=== PATIENT | female | born 1935 | race African-American/Black ===

== ENCOUNTER 2020-05-20 09:51 | Inpatient (IN) ==
[2020-05-20] MEDS ORDERED: VITAMIN A PO SCH (10:30)
[2020-05-20] MEDS ORDERED: PERCOCET TAB 5/325 MG PO PRN (10:53)
[2020-05-20] MEDS ORDERED: TYLENOL 325 MG TAB PO PRN (10:53)
[2020-05-20] MEDS ORDERED: PATIENT'S HOME MEDICATION (Ferrous Fumarate [Ferrocite] 324 MG) PO SCH (11:00)
[2020-05-20] MEDS ORDERED: PATIENT'S HOME MEDICATION (Sitagliptin-Metformin [Janumet] 1 TAB) PO SCH (11:00)
[2020-05-20] MEDS ORDERED: VITAMIN B-12 PO SCH (11:00)
[2020-05-20] MEDS ORDERED: AMINO ACIDS PROTEIN HYDR FIBER PO SCH (11:00)
[2020-05-20 11:16] LABS: BASOPHILS # (AUTO) 0.1 X10^3/uL (0.0-0.1); BASOPHILS % (AUTO) 0.6 % (0.2-1.0); EOSINOPHILS # (AUTO) 0.2 x10^3/uL (0.0-0.2); EOSINOPHILS % (AUTO) 1.4 % (0.9-2.9); HEMATOCRIT 34.2 % (36.0-47.0); HEMOGLOBIN 10.7 g/dL (12.0-16.0); LYMPHOCYTES # (AUTO) 1.5 X10^3/uL (1.3-2.9); LYMPHOCYTES % (AUTO) 12.8 % (21.0-51.0); MEAN CORPUSCULAR HEMOGLOBIN 25.2 pg (27.0-34.0); MEAN CORPUSCULAR HGB CONC 31.3 g/dL (33.0-35.0); MEAN CORPUSCULAR VOLUME 80.7 fL (80.0-100.0); MEAN PLATELET VOLUME 7.8 fL (7.4-11.0); MONOCYTES % (AUTO) 8.7 % (0.0-13.0); NEUTROPHILS # (AUTO) 9.1 x10^3/uL (2.2-4.8); NEUTROPHILS % (AUTO) 76.5 % (42.0-75.0); PLATELET COUNT 737 X10^3/uL (150.0-450.0); RED BLOOD COUNT 4.23 X10^6/uL (3.5-5.4); RED CELL DISTRIBUTION WIDTH 21.1 % (11.6-16.5); WHITE BLOOD COUNT 11.9 X10^3/uL (3.6-10.0)
[2020-05-20 11:32] LABS: ALANINE AMINOTRANSFERASE 18 Units/L (12-78); ALBUMIN 1.8 g/dL (3.4-5.0); ALKALINE PHOSPHATASE 103 Units/L (46-116); ASPARTATE AMINO TRANSFERASE 24 Units/L (15-37); BLOOD UREA NITROGEN 51 mg/dL (7-18); CALCIUM 9.5 mg/dL (8.5-10.1); CARBON DIOXIDE 21.1 mmol/L (21-32); COR CA(FOR HYPOALB) 11.3 mg/dL (8.5-10.1); COR NA(FOR HYPERGLY) 159 mmol/L (136-145); CREATININE 1.17 mg/dL (0.55-1.02); TOTAL PROTEIN 8.2 g/dL (6.4-8.2); TROPONIN I < 0.02 ng/mL (0-1.5); eGFR NON BLACK RACES 47 (>60)
[2020-05-20 11:47] LABS: CHLORIDE 118 mmol/L (98-107); SODIUM 157 mmol/L (136-145)
[2020-05-20 11:49] LABS: ANISOCYTOSIS 1+; HYPOCHROMASIA SLIGHT; PLATELET MORPHOLOGY COMMENT NORMAL (NORMAL)
[2020-05-20] MEDS: ASCORBIC ACID INJ MULTI-DOSE VIAL 1,500 MG in NS 100 ML IV 100 ML IV SCH ×3 (14:25→22:31)
[2020-05-20] MEDS: DECADRON INJ IV SCH (14:26)
[2020-05-20] MEDS: LOVENOX INJ 30 MG SYR SC SCH ×2 (14:36→22:00)
[2020-05-20] MEDS: NS 1000 ML 1,000 ML IV SCH (14:36)
[2020-05-20] MEDS: DIFLUCAN 200 MG IV PREMIX* 200 MG/100 ML BAG IV SCH (14:37)
[2020-05-20] MEDS: FLONASE NASAL SPRAY ENOSTRIL SCH (17:14)
--- NOTE | 2020-05-20 17:19 | RAD ---
HISTORYNG Tube PlacementSTUDYCHEST, 1 [id number]/09/2020FINDINGSNG tube is coiled within the hypopharynx. No change interstitial opacities and focal consolidation within left midlung. No pleural effusion or pneumothorax. Heart size is unchanged. 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 Repositioning with radiographic confirmation is recommended.No change in interstitial opacities and dense consolidation in the periphery of the left midlung, findings likely represent pneumonia however correlation with follow-up radiographic evaluation is recommended to ensure resolution.Large hiatal hernia.Electronically signed by: SACHIN REEVES (May 20, 2020 17:18:17)
[2020-05-20 17:54] LABS: BILIRUBIN,URINE NEGATIVE (NEGATIVE); BLOOD/HEMOGLOBIN,URINE 5+ (NEGATIVE); GLUCOSE, URINE NEGATIVE (NEGATIVE); KETONES,URINE 1+ (NEGATIVE); LEUKOCYTE ESTERASE ,URINE 3+ (NEGATIVE); NITRITES,URINE NEGATIVE (NEGATIVE); PROTEIN,URINE 3+ (NEGATIVE); UROBILINOGEN,URINE NORMAL (NORMAL)
[2020-05-20] MEDS ORDERED: ATIVAN INJ 2 MG VIAL IVP ONE ×3 (17:56→20:19)
[2020-05-20 18:02] LABS: APPEARANCE,URINE TURBID (CLEAR); COLOR,URINE BROWN (YELLOW)
[2020-05-20 18:03] LABS: BACTERIA,URINE 4+ /HPF (NEGATIVE); RBC,URINE 20-30 /HPF (0-3); SQUAMOUS EPITHELIAL CELL,UR NEGATIVE /HPF (NEGATIVE)
[2020-05-20] MEDS ORDERED: ATIVAN INJ 2 MG VIAL ONE (18:05)
[2020-05-20] MEDS ORDERED: NS 1000 ML 1,000 ML ONE (18:11)
[2020-05-20] MEDS ORDERED: NS 1000 ML 1,000 ML IV ONE (18:22)
[2020-05-20 19:01] LABS: CRYPTOSPORIDIUM PARVUM ANTIGEN NEGATIVE (NEGATIVE); GIARDIA LAMBLIA ANTIGEN NEGATIVE (NEGATIVE)
[2020-05-20] MEDS ORDERED: POTASSIUM CHL 60 MEQ/NS 0.45% 500 ML IV PRN (19:04)
[2020-05-20] MEDS ORDERED: POTASSIUM CHL 40 MEQ/NS 0.45% 500 ML IV PRN (19:04)
[2020-05-20] MEDS ORDERED: KLOR-CON PO PRN (19:04)
[2020-05-20] MEDS ORDERED: K-DUR TAB 20 MEQ PO PRN (19:04)
[2020-05-20] MEDS ORDERED: POTASSIUM CHLORIDE LIQ 20 MEQ UDC PO PRN (19:04)
[2020-05-20] MEDS ORDERED: MICRO K EXTEN CAP 10 MEQ PO PRN (19:04)
[2020-05-20] MEDS ORDERED: TYGACIL 50 MG VIAL 100 MG in NS 100 ML IV 100 ML IV ONE (20:30)
[2020-05-20] MEDS: FOLIC ACID TAB 1 MG PO SCH (20:34)
[2020-05-20] MEDS: PLAQUENIL PO SCH ×3 (20:34→22:20)
[2020-05-20] MEDS: ZINC SULFATE PO SCH ×2 (20:35→21:57)
[2020-05-20] MEDS: VITAMIN D (1.25MG) PO SCH (20:35)
[2020-05-20] MEDS: ZOLOFT PO SCH (20:36)
[2020-05-20] MEDS: FERROUS GLUCONATE PO SCH ×3 (20:37→22:18)
[2020-05-20] MEDS ORDERED: DILAUDID INJ IVP ONE (20:54)
[2020-05-20] MEDS: GLUCOPHAGE PO SCH (21:58)
[2020-05-20] MEDS: COREG TAB 3.125 MG PO SCH (22:00)
[2020-05-20] MEDS: JANUVIA PO SCH (22:19)
[2020-05-20] MEDS: THIAMINE HCL INJ IM SCH ×2 (22:29→22:30)
[2020-05-21] MEDS: VANCOMYCIN HCL PO SCH ×6 (00:11→21:00)
[2020-05-21] MEDS: VSL#3 PO SCH ×2 (00:12→15:15)
[2020-05-21] MEDS: ASCORBIC ACID INJ MULTI-DOSE VIAL 1,500 MG in NS 100 ML IV 100 ML IV SCH ×4 (02:34→21:45)
[2020-05-21 05:52] LABS: BASOPHILS % (AUTO) 0 % (0.2-1.0); HEMATOCRIT 33.5 % (36.0-47.0); HEMOGLOBIN 10.2 g/dL (12.0-16.0); LYMPHOCYTES # (AUTO) 0.3 X10^3/uL (1.3-2.9); LYMPHOCYTES % (AUTO) 2.7 % (21.0-51.0); MEAN CORPUSCULAR HEMOGLOBIN 25.5 pg (27.0-34.0); MEAN CORPUSCULAR HGB CONC 30.5 g/dL (33.0-35.0); MEAN CORPUSCULAR VOLUME 83.7 fL (80.0-100.0); MEAN PLATELET VOLUME 8.5 fL (7.4-11.0); MONOCYTES # (AUTO) 1.9 x10^3/uL (0.3-0.8); MONOCYTES % (AUTO) 16.1 % (0.0-13.0); NEUTROPHILS # (AUTO) 8.7 x10^3/uL (2.2-4.8); NEUTROPHILS % (AUTO) 73.2 % (42.0-75.0); PLATELET COUNT 570 X10^3/uL (150.0-450.0); RED CELL DISTRIBUTION WIDTH 21.9 % (11.6-16.5); WHITE BLOOD COUNT 11.8 X10^3/uL (3.6-10.0)
[2020-05-21 05:54] LABS: ALBUMIN 1.5 g/dL (3.4-5.0); CALCIUM 8.5 mg/dL (8.5-10.1); CARBON DIOXIDE 17.5 mmol/L (21-32); COR CA(FOR HYPOALB) 10.5 mg/dL (8.5-10.1); CREATININE 1.12 mg/dL (0.55-1.02); TOTAL PROTEIN 7.2 g/dL (6.4-8.2)
[2020-05-21 06:20] LABS: PLATELET MORPHOLOGY COMMENT NORMAL (NORMAL)
[2020-05-21 06:21] LABS: ANISOCYTOSIS 1+; HYPOCHROMASIA SLIGHT
[2020-05-21] MEDS ORDERED: LR 1000 ML IV 1,000 ML IV ONE ×2 (06:25→06:28)
[2020-05-21] MEDS: GLUCOPHAGE PO SCH ×2 (06:40→16:06)
[2020-05-21] MEDS: JANUVIA PO SCH ×2 (06:51→16:06)
[2020-05-21] MEDS: DIFLUCAN 200 MG IV PREMIX* 200 MG/100 ML BAG IV SCH (10:36)
[2020-05-21] MEDS: LOVENOX INJ 30 MG SYR SC SCH ×2 (10:37→21:45)
[2020-05-21] MEDS ORDERED: PHARMACY CONSULT LTC MEDICATIONS XX SCH (11:00)
[2020-05-21] MEDS: TYGACIL 50 MG VIAL 50 MG in NS 100 ML IV 100 ML IV SCH ×2 (11:24→22:20)
[2020-05-21] MEDS: NS 1000 ML 1,000 ML IV SCH (11:25)
[2020-05-21] MEDS: DECADRON INJ IV SCH (11:27)
--- NOTE | 2020-05-21 11:42 | RAD ---
HISTORYNG tube placementSTUDYKUBCOMPARISONNoneFINDINGSThere is a nasogastric tube present with its tip likely within the stomach however the side hole is likely within the distal esophagus just proximal to the gastroe sophageal junction. Advancement is recommended. The abdominal gas pattern is nonspecific and nonobstr uctive. Regional skeleton is intact.IMPRESSIONNG tube tip within the stomach however the side hole is likely within the distal esophagus and advancement is recommended.Electronically signed by: BENSON SUAREZ (May 21, 2020 11:41:50)
[2020-05-21] MEDS: VITAMIN D (1.25MG) PO SCH (11:59)
[2020-05-21 12:33] VITALS: BMI 24.5
--- NOTE | 2020-05-21 13:58 | RAD ---
HISTORYNG TUBE PLACEMENTSTUDYKUBCOMPARISONNoneFINDINGSEvaluation of the abdomen demonstrates a normal bowel gas nakul caleb. An NG tube is in place tip in the area of the antrum of the stomach. Patient has undergone prior left hip replacement surgery and L4 laminectomy. No pathological soft tissue mass or calcification c an be observed. The bony structures are grossly intact.IMPRESSIONNG tube in good position with tip i n the area of the distal antrum or duodenal bulb.Electronically signed by: ODETTE KNOWLES (May 21 13:56:57)
[2020-05-21] MEDS ORDERED: DECADRON INJ ONE (15:03)
[2020-05-21] MEDS ORDERED: NS 100 ML IV 100 ML IV ONE ×2 (15:04→20:37)
[2020-05-21] MEDS ORDERED: GLUCOPHAGE ONE (15:06)
[2020-05-21] MEDS: COREG TAB 3.125 MG PO SCH ×3 (15:10→23:41)
[2020-05-21] MEDS: FERROUS GLUCONATE PO SCH ×2 (15:11→21:45)
[2020-05-21] MEDS: PLAQUENIL PO SCH ×2 (15:11→21:45)
[2020-05-21] MEDS: ZOLOFT PO SCH (15:12)
[2020-05-21] MEDS: FOLIC ACID TAB 1 MG PO SCH (15:13)
[2020-05-21] MEDS: ZINC SULFATE PO SCH ×2 (15:17→21:45)
[2020-05-21] MEDS: VITAMIN B-1 PO SCH (15:18)
[2020-05-21] MEDS: FLONASE NASAL SPRAY ENOSTRIL SCH (15:20)
[2020-05-21] MEDS: NS 1/2 1000 ML IV 1,000 ML IV SCH (16:10)
[2020-05-21] MEDS ORDERED: NS 1/2 1000 ML IV 1,000 ML IV ONE (16:34)
--- NOTE | 2020-05-21 18:24 | RAD ---
KUBHISTORY: NG TUBE PLACEMENTStudy: Single flat views of the abdomenComparison:NoneFindings:There is a normal bowel gas pattern.NG tube appears to been retracted with the tip now at the GE junction..No abnormal calcifications or abnormal soft tissue shadows. No acute bony abnormalities.IMPRESSION:1. NG tube with tip at GE junction.Electronically signed by: PAUL MAIN (May 21, 2020 18:23:36)
[2020-05-22] MEDS: NS 1/2 1000 ML IV 1,000 ML IV SCH ×4 (02:16→16:25)
[2020-05-22] MEDS ORDERED: NS 100 ML IV 100 ML IV ONE ×2 (03:10→10:09)
[2020-05-22] MEDS: VANCOMYCIN HCL PO SCH ×4 (03:15→23:16)
[2020-05-22] MEDS: ASCORBIC ACID INJ MULTI-DOSE VIAL 1,500 MG in NS 100 ML IV 100 ML IV SCH ×4 (03:15→22:00)
[2020-05-22] MEDS ORDERED: NS 1/2 1000 ML IV 1,000 ML IV ONE ×2 (05:51→16:59)
[2020-05-22 06:27] LABS: ALANINE AMINOTRANSFERASE 7 Units/L (12-78); ALBUMIN 1.5 g/dL (3.4-5.0); ALKALINE PHOSPHATASE 101 Units/L (46-116); ASPARTATE AMINO TRANSFERASE 22 Units/L (15-37); BLOOD UREA NITROGEN 66 mg/dL (7-18); CALCIUM 8.6 mg/dL (8.5-10.1); CARBON DIOXIDE 15.2 mmol/L (21-32); COR CA(FOR HYPOALB) 10.6 mg/dL (8.5-10.1); COR NA(FOR HYPERGLY) 164 mmol/L (136-145); CREATININE 1.08 mg/dL (0.55-1.02); TOTAL PROTEIN 6.7 g/dL (6.4-8.2); eGFR NON BLACK RACES 51 (>60)
[2020-05-22 06:33] LABS: CHLORIDE 125 mmol/L (98-107); SODIUM 160 mmol/L (136-145)
[2020-05-22] MEDS: GLUCOPHAGE PO SCH ×2 (07:10→16:03)
[2020-05-22] MEDS: JANUVIA PO SCH ×2 (07:11→16:03)
[2020-05-22 07:12] LABS: BASOPHILS % (AUTO) 0 % (0.2-1.0); EOSINOPHILS % (AUTO) 0.1 % (0.9-2.9); HEMOGLOBIN 10.1 g/dL (12.0-16.0); LYMPHOCYTES # (AUTO) 0.9 X10^3/uL (1.3-2.9); MEAN CORPUSCULAR HEMOGLOBIN 25.1 pg (27.0-34.0); MEAN CORPUSCULAR HGB CONC 29.7 g/dL (33.0-35.0); MEAN CORPUSCULAR VOLUME 84.5 fL (80.0-100.0); MEAN PLATELET VOLUME 8.5 fL (7.4-11.0); MONOCYTES # (AUTO) 1.1 x10^3/uL (0.3-0.8); MONOCYTES % (AUTO) 9.6 % (0.0-13.0); NEUTROPHILS # (AUTO) 9.1 x10^3/uL (2.2-4.8); NEUTROPHILS % (AUTO) 82.3 % (42.0-75.0); PLATELET COUNT 561 X10^3/uL (150.0-450.0); RED BLOOD COUNT 4.03 X10^6/uL (3.5-5.4); WHITE BLOOD COUNT 11.1 X10^3/uL (3.6-10.0)
[2020-05-22] MEDS ORDERED: GLUCOPHAGE ONE (07:12)
[2020-05-22 08:04] LABS: ANISOCYTOSIS 1+; PLATELET MORPHOLOGY COMMENT NORMAL (NORMAL)
[2020-05-22] MEDS ORDERED: DECADRON INJ ONE (08:47)
[2020-05-22] MEDS: ZINC SULFATE PO SCH ×2 (08:50→23:17)
[2020-05-22] MEDS: FOLIC ACID TAB 1 MG PO SCH (08:50)
[2020-05-22] MEDS: FERROUS GLUCONATE PO SCH ×2 (08:52→23:14)
[2020-05-22] MEDS: DIFLUCAN 200 MG IV PREMIX* 200 MG/100 ML BAG IV SCH (08:52)
[2020-05-22] MEDS: COREG TAB 3.125 MG PO SCH (08:52)
[2020-05-22] MEDS: PLAQUENIL PO SCH ×2 (08:53→23:15)
[2020-05-22] MEDS: FLONASE NASAL SPRAY ENOSTRIL SCH (08:53)
[2020-05-22] MEDS: VITAMIN B-1 PO SCH (08:53)
[2020-05-22] MEDS: VITAMIN A PO SCH (08:54)
[2020-05-22] MEDS: VITAMIN D3 125 mcg (5,000 UNITS) PO SCH (08:54)
[2020-05-22] MEDS: LOVENOX INJ 30 MG SYR SC SCH ×2 (09:00→23:15)
[2020-05-22] MEDS: VSL#3 PO SCH (09:40)
[2020-05-22] MEDS: TYGACIL 50 MG VIAL 50 MG in NS 100 ML IV 100 ML IV SCH ×2 (09:45→22:50)
[2020-05-22] MEDS ORDERED: LR 1000 ML IV 1,000 ML IV ONE (09:49)
[2020-05-22] MEDS: DECADRON INJ IV SCH (10:06)
[2020-05-22] MEDS: ZOLOFT PO SCH (10:06)
[2020-05-22] MEDS ORDERED: COREG TAB 3.125 MG PO SCH (13:00)
[2020-05-22] MEDS ORDERED: VERSED IVP ONE ×2 (14:00→15:05)
[2020-05-22] MEDS ORDERED: VERSED ONE ×2 (14:01→15:16)
--- NOTE | 2020-05-22 16:00 | RAD ---
HISTORYR/O ASPIRATION, MULTIPLE ATTEMPTS OF NGTSTUDYCHEST, 1 VIEWCOMPARISONAugust 9 2019FINDINGSThe trachea is midline. The cardiac silhouette is stable. The lungs demonstrate worsening multifocal airspace opacities. There are 2 images submitted and 1 demonstrates no chest tube in the chest. Another images submitted of the upper abdomen which revealed a NG tube in the distal esophagus. Please correlate. The bony thorax is unremarkable.IMPRESSIONWorsening airspace disease as above.2 images were sent 1 of the upper abdomen which demonstrated NG tube in the distal esophagus. The chest radiograph demonstrates no evidence for an NG tube. Please correlate.Electronically signed by: MYRON TRAN (May 22, 2020 15:59:33)
[2020-05-22 19:17] LABS: BASOPHILS % (AUTO) 0.3 % (0.2-1.0); HEMATOCRIT 34.6 % (36.0-47.0); HEMOGLOBIN 10.7 g/dL (12.0-16.0); LYMPHOCYTES # (AUTO) 1.2 X10^3/uL (1.3-2.9); LYMPHOCYTES % (AUTO) 8.6 % (21.0-51.0); MEAN CORPUSCULAR HEMOGLOBIN 25.3 pg (27.0-34.0); MEAN CORPUSCULAR HGB CONC 31.1 g/dL (33.0-35.0); MEAN CORPUSCULAR VOLUME 81.6 fL (80.0-100.0); MEAN PLATELET VOLUME 8.4 fL (7.4-11.0); MONOCYTES # (AUTO) 0.6 x10^3/uL (0.3-0.8); MONOCYTES % (AUTO) 4.5 % (0.0-13.0); NEUTROPHILS # (AUTO) 12.5 x10^3/uL (2.2-4.8); NEUTROPHILS % (AUTO) 86.6 % (42.0-75.0); PLATELET COUNT 529 X10^3/uL (150.0-450.0); RED BLOOD COUNT 4.24 X10^6/uL (3.5-5.4); RED CELL DISTRIBUTION WIDTH 22.2 % (11.6-16.5); WHITE BLOOD COUNT 14.4 X10^3/uL (3.6-10.0)
[2020-05-22 19:41] LABS: BAND NEUTROPHILS % 28 % (0-10); MYELOCYTES % 1
[2020-05-22 19:42] LABS: ANISOCYTOSIS 2+; HYPOCHROMASIA SLIGHT; PLATELET MORPHOLOGY COMMENT NORMAL (NORMAL)
[2020-05-22 22:40] LABS: ALANINE AMINOTRANSFERASE 12 Units/L (12-78); ALBUMIN 1.4 g/dL (3.4-5.0); ALKALINE PHOSPHATASE 86 Units/L (46-116); ASPARTATE AMINO TRANSFERASE 17 Units/L (15-37); BLOOD UREA NITROGEN 55 mg/dL (7-18); CALCIUM 8.6 mg/dL (8.5-10.1); CARBON DIOXIDE 19.7 mmol/L (21-32); COR CA(FOR HYPOALB) 10.7 mg/dL (8.5-10.1); COR NA(FOR HYPERGLY) 160 mmol/L (136-145); TOTAL PROTEIN 6.3 g/dL (6.4-8.2); eGFR NON BLACK RACES 56 (>60)
[2020-05-22 22:42] LABS: CHLORIDE 123 mmol/L (98-107); SODIUM 158 mmol/L (136-145)
[2020-05-22] MEDS: COREG TAB 12.5 MG PO SCH (23:14)
[2020-05-23] MEDS ORDERED: NS 1/2 1000 ML IV 1,000 ML IV ONE ×2 (01:11→16:41)
[2020-05-23] MEDS: NS 1/2 1000 ML IV 1,000 ML IV SCH ×5 (01:11→23:47)
[2020-05-23] MEDS: VANCOMYCIN HCL PO SCH ×5 (03:48→21:52)
[2020-05-23 06:56] LABS: BASOPHILS % (AUTO) 0.3 % (0.2-1.0); EOSINOPHILS % (AUTO) 0.2 % (0.9-2.9); HEMATOCRIT 31.1 % (36.0-47.0); HEMOGLOBIN 9.8 g/dL (12.0-16.0); LYMPHOCYTES # (AUTO) 1.3 X10^3/uL (1.3-2.9); MEAN CORPUSCULAR HEMOGLOBIN 25.6 pg (27.0-34.0); MEAN CORPUSCULAR HGB CONC 31.6 g/dL (33.0-35.0); MEAN CORPUSCULAR VOLUME 80.9 fL (80.0-100.0); MEAN PLATELET VOLUME 8.2 fL (7.4-11.0); MONOCYTES # (AUTO) 0.8 x10^3/uL (0.3-0.8); MONOCYTES % (AUTO) 8.1 % (0.0-13.0); NEUTROPHILS # (AUTO) 8.3 x10^3/uL (2.2-4.8); NEUTROPHILS % (AUTO) 79.4 % (42.0-75.0); PLATELET COUNT 526 X10^3/uL (150.0-450.0); RED BLOOD COUNT 3.84 X10^6/uL (3.5-5.4); RED CELL DISTRIBUTION WIDTH 21.5 % (11.6-16.5); WHITE BLOOD COUNT 10.5 X10^3/uL (3.6-10.0)
[2020-05-23] MEDS ORDERED: XYLOCAINE 2 % (PLAIN) ONE (06:57)
[2020-05-23] MEDS ORDERED: DIPRIVAN VIAL 40 ML ONE (06:57)
[2020-05-23] MEDS ORDERED: LR 1000 ML IV 1,000 ML IV ONE (07:03)
[2020-05-23 07:11] LABS: ALANINE AMINOTRANSFERASE 13 Units/L (12-78); ALBUMIN 1.4 g/dL (3.4-5.0); ALKALINE PHOSPHATASE 90 Units/L (46-116); ASPARTATE AMINO TRANSFERASE 21 Units/L (15-37); BLOOD UREA NITROGEN 48 mg/dL (7-18); CALCIUM 8.5 mg/dL (8.5-10.1); CARBON DIOXIDE 17.7 mmol/L (21-32); COR CA(FOR HYPOALB) 10.6 mg/dL (8.5-10.1); COR NA(FOR HYPERGLY) 157 mmol/L (136-145); CREATININE 0.86 mg/dL (0.55-1.02); TOTAL PROTEIN 6.4 g/dL (6.4-8.2); eGFR NON BLACK RACES > 60 (>60)
[2020-05-23 07:22] LABS: CHLORIDE 124 mmol/L (98-107); SODIUM 156 mmol/L (136-145)
[2020-05-23 07:58] LABS: ANISOCYTOSIS 1+; PLATELET MORPHOLOGY COMMENT NORMAL (NORMAL)
--- NOTE | 2020-05-23 08:19 | OR.IMMED ---
Immediate Post-Op Note - Immediate Post-Op Note Pre-Op Diagnosis: poor oral intake . C-Diff Colitis . positive Covid 19 Post-Op Diagnosis: same as above . Procedure: EGD . placement of PEG feeding tube . Surgeon/Policy Loan Calculator: Chirag. Findings: Hiatal hernia . moderate gastritis . no bleeding , ulcers or obstruction .. Drains: NONE Complications: none Condition: Stable Post Hospital Plans and Medications: PEG tube to gravity drainage for 10 mnts Q 6 hours . keep NPO for 24 H Final Diagnosis: poor nutrition , colitis , positive Covid19
[2020-05-23] MEDS: GLUCOPHAGE PO SCH ×2 (08:32→18:40)
[2020-05-23] MEDS: JANUVIA PO SCH ×2 (08:33→18:40)
[2020-05-23] MEDS: COREG TAB 12.5 MG PO SCH ×2 (08:34→21:49)
[2020-05-23] MEDS: FERROUS GLUCONATE PO SCH ×2 (08:34→21:53)
[2020-05-23] MEDS: PLAQUENIL PO SCH ×2 (08:35→21:51)
[2020-05-23] MEDS: VITAMIN A PO SCH (08:35)
[2020-05-23] MEDS: FOLIC ACID TAB 1 MG PO SCH (08:35)
[2020-05-23] MEDS: VITAMIN B-1 PO SCH (08:36)
[2020-05-23] MEDS: VSL#3 PO SCH (08:36)
[2020-05-23] MEDS: VITAMIN D3 125 mcg (5,000 UNITS) PO SCH (08:36)
[2020-05-23] MEDS: ZOLOFT PO SCH (10:08)
[2020-05-23] MEDS: ZINC SULFATE PO SCH ×2 (10:08→21:51)
[2020-05-23] MEDS ORDERED: NS 100 ML IV 100 ML IV ONE (10:21)
[2020-05-23] MEDS: TYGACIL 50 MG VIAL 50 MG in NS 100 ML IV 100 ML IV SCH ×2 (10:36→21:56)
[2020-05-23] MEDS: ASCORBIC ACID INJ MULTI-DOSE VIAL 1,500 MG in NS 100 ML IV 100 ML IV SCH ×3 (10:38→21:25)
[2020-05-23] MEDS: FLONASE NASAL SPRAY ENOSTRIL SCH (10:39)
[2020-05-23] MEDS: LOVENOX INJ 30 MG SYR SC SCH ×2 (10:41→21:25)
[2020-05-23] MEDS ORDERED: PROCRIT or EPOGEN VIAL 20,000 UNITS SC SCH (11:00)
[2020-05-23] MEDS ORDERED: DECADRON INJ ONE (13:43)
[2020-05-23] MEDS: DECADRON INJ IV SCH (14:18)
[2020-05-23] MEDS ORDERED: STERILE WATER IRRIGATION IR ONE (16:29)
[2020-05-24] MEDS ORDERED: NS 1/2 1000 ML IV 1,000 ML IV ONE ×3 (01:58→19:29)
[2020-05-24] MEDS: ASCORBIC ACID INJ MULTI-DOSE VIAL 1,500 MG in NS 100 ML IV 100 ML IV SCH ×4 (02:24→20:11)
[2020-05-24] MEDS: VANCOMYCIN HCL PO SCH ×4 (02:24→20:11)
[2020-05-24] MEDS: NS 1/2 1000 ML IV 1,000 ML IV SCH ×4 (03:54→15:40)
[2020-05-24] MEDS: JANUVIA PO SCH ×3 (06:18→16:10)
[2020-05-24] MEDS: GLUCOPHAGE PO SCH ×3 (06:18→16:10)
[2020-05-24 06:59] LABS: ALANINE AMINOTRANSFERASE 8 Units/L (12-78); ALBUMIN 1.3 g/dL (3.4-5.0); ALKALINE PHOSPHATASE 95 Units/L (46-116); ASPARTATE AMINO TRANSFERASE 22 Units/L (15-37); BLOOD UREA NITROGEN 37 mg/dL (7-18); CALCIUM 8.1 mg/dL (8.5-10.1); COR CA(FOR HYPOALB) 10.3 mg/dL (8.5-10.1); COR NA(FOR HYPERGLY) 153 mmol/L (136-145); CREATININE 0.83 mg/dL (0.55-1.02); TOTAL PROTEIN 5.9 g/dL (6.4-8.2); eGFR NON BLACK RACES > 60 (>60)
[2020-05-24 07:10] LABS: CHLORIDE 121 mmol/L (98-107); SODIUM 152 mmol/L (136-145)
[2020-05-24 07:11] LABS: CARBON DIOXIDE 14.8 mmol/L (21-32)
[2020-05-24 07:48] LABS: BASOPHILS % (AUTO) 0.2 % (0.2-1.0); EOSINOPHILS % (AUTO) 0.1 % (0.9-2.9); HEMATOCRIT 29.1 % (36.0-47.0); HEMOGLOBIN 8.7 g/dL (12.0-16.0); LYMPHOCYTES # (AUTO) 1.1 X10^3/uL (1.3-2.9); LYMPHOCYTES % (AUTO) 10.5 % (21.0-51.0); MEAN CORPUSCULAR HEMOGLOBIN 25.4 pg (27.0-34.0); MEAN CORPUSCULAR VOLUME 84.6 fL (80.0-100.0); MEAN PLATELET VOLUME 9.4 fL (7.4-11.0); MONOCYTES # (AUTO) 0.8 x10^3/uL (0.3-0.8); MONOCYTES % (AUTO) 7.4 % (0.0-13.0); NEUTROPHILS # (AUTO) 8.9 x10^3/uL (2.2-4.8); NEUTROPHILS % (AUTO) 81.8 % (42.0-75.0); PLATELET COUNT 366 X10^3/uL (150.0-450.0); RED BLOOD COUNT 3.44 X10^6/uL (3.5-5.4); RED CELL DISTRIBUTION WIDTH 21.9 % (11.6-16.5); WHITE BLOOD COUNT 10.9 X10^3/uL (3.6-10.0)
[2020-05-24] MEDS ORDERED: GLUCOPHAGE ONE ×2 (07:57→15:25)
[2020-05-24] MEDS: LOVENOX INJ 30 MG SYR SC SCH ×2 (08:23→20:12)
[2020-05-24] MEDS: FOLIC ACID TAB 1 MG PO SCH (08:24)
[2020-05-24 08:25] LABS: ANISOCYTOSIS 1+; HYPOCHROMASIA SLIGHT; PLATELET MORPHOLOGY COMMENT NORMAL (NORMAL)
[2020-05-24] MEDS: ZINC SULFATE PO SCH ×2 (08:25→20:12)
[2020-05-24] MEDS: PLAQUENIL PO SCH ×2 (08:27→20:12)
[2020-05-24] MEDS: VITAMIN B-1 PO SCH (08:27)
[2020-05-24] MEDS: COREG TAB 12.5 MG PO SCH ×2 (08:27→20:11)
[2020-05-24] MEDS: FERROUS GLUCONATE PO SCH ×2 (08:28→20:12)
[2020-05-24] MEDS: VITAMIN D3 125 mcg (5,000 UNITS) PO SCH (08:29)
[2020-05-24] MEDS: VITAMIN A PO SCH (08:29)
[2020-05-24] MEDS: VSL#3 PO SCH (08:29)
[2020-05-24] MEDS: FLONASE NASAL SPRAY ENOSTRIL SCH (08:42)
[2020-05-24] MEDS ORDERED: LR 1000 ML IV 1,000 ML IV ONE (09:49)
[2020-05-24] MEDS ORDERED: DECADRON INJ ONE (10:25)
[2020-05-24] MEDS: TYGACIL 50 MG VIAL 50 MG in NS 100 ML IV 100 ML IV SCH ×2 (12:10→20:13)
[2020-05-24] MEDS: ZOLOFT PO SCH (12:11)
[2020-05-24] MEDS: DECADRON INJ IV SCH (12:11)
--- NOTE | 2020-05-24 13:32 | DR.PROGNOT ---
Hospital Progress Notes - Progress Note for Day of: Progress Note Date: 05/24/20 - Chief Complaint Chief Complaint: s/p PEG feeding tube placement. doing fairly well .'no leakage around the PEG site . abdomen soft, flat , BS+. - Past Medical Family Social History Past Med/Fam/Surg Hx: No changes since H&P Allergies: Allergies Sulfa (Sulfonamide Antibiotics) Allergy (Verified 02/16/20 08:17) per pcc - Review Of Systems ROS: No change since H&P - Vital Signs Vital Signs: Temperature 97.5 F Pulse Rate [Right Brachial] 64 Respiratory Rate 24 Blood Pressure [left leg] 92/37 Blood Pressure [Right Arm] 130/63 Blood Pressure 111/53 O2 Sat by Pulse Oximetry 96 - Physical Exam Oriented: Not Oriented Eyes: Normal Ear: Normal Nose: Normal Throat: Normal Cardiovascular: Normal GI:Auscultation: Normal GI: Tenderness: Normal Skin: Other (sacral ulcer as before . deep but clean , no cellulitis or abscess , no necrosis ) Speech Pattern: Unclear, Delayed - Laboratory and Diagnostics Result Diagrams: 05/24/20 05:15 05/24/20 05:15 Labs: 05/20/20 16:59 Stool Stool Culture - Final 05/20/20 16:59 Stool - Final 05/20/20 16:59 Urine,Catheterized Urine Culture - Final 05/20/20 16:59 Leg - Right Wound Culture - Final Klebsiella Pneumoniae Pseudomonas Aeruginosa Laboratory WBC 10.9 X10^3/uL (3.6-10.0) H 05/24/20 05:15 RBC 3.44 X10^6/uL (3.5-5.4) L 05/24/20 05:15 Hgb 8.7 g/dL (12.0-16.0) L 05/24/20 05:15 Hct 29.1 % (36.0-47.0) L 05/24/20 05:15 MCV 84.6 fL (80.0-100.0) 05/24/20 05:15 MCH 25.4 pg (27.0-34.0) L 05/24/20 05:15 MCHC 30.0 g/dL (33.0-35.0) L 05/24/20 05:15 RDW 21.9 % (11.6-16.5) H 05/24/20 05:15 Plt Count 366 X10^3/uL (150.0-450.0) 05/24/20 05:15 Plt Count Comment Adequate (ADEQUATE) 05/24/20 05:15 MPV 9.4 fL (7.4-11.0) 05/24/20 05:15 Neut % (Auto) 81.8 % (42.0-75.0) H 05/24/20 05:15 Lymph % (Auto) 10.5 % (21.0-51.0) L 05/24/20 05:15 [place] % (Auto) 7.4 % (0.0-13.0) 05/24/20 05:15 Eos % (Auto) 0.1 % (0.9-2.9) L 05/24/20 05:15 Baso % (Auto) 0.2 % (0.2-1.0) 05/24/20 05:15 Neut # (Auto) 8.9 x10^3/uL (2.2-4.8) H 05/24/20 05:15 Lymph # (Auto) 1.1 X10^3/uL (1.3-2.9) L 05/24/20 05:15 [place] # (Auto) 0.8 x10^3/uL (0.3-0.8) 05/24/20 05:15 Eos # (Auto) 0.0 x10^3/uL (0.0-0.2) 05/24/20 05:15 Baso # (Auto) 0.0 X10^3/uL (0.0-0.1) 05/24/20 05:15 Absolute Nucleated RBC 0.1 /100WBC 05/24/20 05:15 Total Counted 100 05/23/20 06:35 Neutrophils % (Manual) 71 % (39-76) 05/23/20 06:35 Band Neutrophils % 28 % (0-10) H 05/22/20 19:07 Lymphocytes % (Manual) 21 % (13-43) 05/23/20 06:35 Monocytes % (Manual) 8 % (4-9) 05/23/20 06:35 Eosinophils % (Manual) 1 % (0-6) 05/22/20 19:07 Myelocytes % 1 08/11/20 19:07 Plt Morphology Comment Normal (NORMAL) 05/24/20 05:15 RBC Morphology Abnormal (NORMAL) A 05/24/20 05:15 Hypochromasia Slight A 05/24/20 05:15 Anisocytosis 1+ A 05/24/20 05:15 Sodium 152 mmol/L (136-145) H* 05/24/20 05:15 Corrected Sodium 153 mmol/L (136-145) H 05/24/20 05:15 Potassium 3.6 mmol/L (3.5-5.1) 05/24/20 05:15 Chloride 121 mmol/L (98-107) H* 05/24/20 05:15 Carbon Dioxide 14.8 mmol/L (21-32) L* 05/24/20 05:15 BUN 37 mg/dL (7-18) H 05/24/20 05:15 Creatinine 0.83 mg/dL (0.55-1.02) 05/24/20 05:15 Est GFR (MDRD) Af Amer > 60 (>60) 05/24/20 05:15 Est GFR (MDRD) Non-Af > 60 (>60) 05/24/20 05:15 Glucose 126 mg/dL (65-99) H 05/24/20 05:15 Calcium 8.1 mg/dL (8.5-10.1) L 05/24/20 05:15 Corrected Calcium 10.3 mg/dL (8.5-10.1) H 05/24/20 05:15 Magnesium 1.9 mg/dL (1.7-2.9) 05/20/20 19:25 Total Bilirubin 0.20 mg/dL (0.2-1.0) 05/24/20 05:15 AST 22 Units/L (15-37) 05/24/20 05:15 ALT 8 Units/L (12-78) L 05/24/20 05:15 Alkaline Phosphatase 95 Units/L (46-116) 05/24/20 05:15 Troponin I < 0.02 ng/mL (0-1.5) 05/20/20 10:45 Total Protein 5.9 g/dL (6.4-8.2) L 05/24/20 05:15 Albumin 1.3 g/dL (3.4-5.0) L 05/24/20 05:15 Globulin 4.6 g/dL (2.5-4.5) H 05/24/20 05:15 Albumin/Globulin Ratio 0.3 Ratio (1.1-2.1) L 05/24/20 05:15 Specimen Type Catherized urine 05/20/20 16:59 Urine Color Brown (YELLOW) 05/20/20 16:59 Urine Appearance Turbid (CLEAR) 05/20/20 16:59 Urine pH 6.0 (5.0 - 8.0) 05/20/20 16:59 Ur Specific Snyder 1.015 (1.000-1.030) 05/20/20 16:59 Urine Protein 3+ (NEGATIVE) 05/20/20 16:59 Urine Glucose (UA) Negative (NEGATIVE) 05/20/20 16:59 Urine Ketones 1+ (NEGATIVE) 05/20/20 16:59 Urine Occult Blood 5+ (NEGATIVE) 05/20/20 16:59 Urine Nitrite Negative (NEGATIVE) 05/20/20 16:59 Urine Bilirubin Negative (NEGATIVE) 05/20/20 16:59 Urine Urobilinogen Normal (NORMAL) 05/20/20 16:59 Ur Leukocyte Esterase 3+ (NEGATIVE) 05/20/20 16:59 Urine RBC 20-30 /HPF (0-3) A 05/20/20 16:59 Urine WBC Tntc /HPF (0-5) A 05/20/20 16:59 Ur Squamous Epith Cells Negative /HPF (NEGATIVE) 05/20/20 16:59 Urine Bacteria 4+ /HPF (NEGATIVE) 05/20/20 16:59 Ur Culture Indicated? Yes/culture set up 05/20/20 16:59 Stool Description Semisolid,brown,30g 05/20/20 16:59 Stool Description Semisolid,brown,30g 05/20/20 16:59 Stl Occult Blood (IFOB) Positive (NEGATIVE) A 05/20/20 16:59 Stool for White Cells Positive (NEGATIVE) A 05/20/20 16:59 Stl C. diff Tox B Gene Positive (NEGATIVE) A 05/20/20 16:59 Stl C. diff [id number] Positive (NEGATIVE) A 05/20/20 16:59 C. difficile Toxin A&B Positive (NEGATIVE) A 05/20/20 16:59 Cryptosporid parvum Ag Negative (NEGATIVE) 05/20/20 16:59 Giardia lamblia Ag Negative (NEGATIVE) 05/20/20 16:59 Blood Type A POSITIVE 05/20/20 13:40 Antibody Screen Negative 05/20/20 13:40 - Assessment and Plan 1: s/p PEG feeding tube placement . sacral ulcer stage lV . to start feeding via PEG tube . apply wound vac to sacral ulcer . same treatment for C-Diff and Covi 19.
[2020-05-24] MEDS: K-RIDER 10 MEQ/NS 100 ML 10 MEQ/100 ML BAG IV PRN ×2 (17:00→18:17)
[2020-05-25] MEDS: NS 1/2 1000 ML IV 1,000 ML IV SCH ×2 (00:47→11:36)
[2020-05-25] MEDS: VANCOMYCIN HCL PO SCH ×2 (02:16→08:43)
[2020-05-25] MEDS: ASCORBIC ACID INJ MULTI-DOSE VIAL 1,500 MG in NS 100 ML IV 100 ML IV SCH ×2 (02:16→08:37)
[2020-05-25] MEDS ORDERED: GLUCOPHAGE ONE (04:23)
[2020-05-25 06:11] LABS: BASOPHILS % (AUTO) 0.1 % (0.2-1.0); EOSINOPHILS # (AUTO) 0.1 x10^3/uL (0.0-0.2); EOSINOPHILS % (AUTO) 0.6 % (0.9-2.9); HEMATOCRIT 29.6 % (36.0-47.0); HEMOGLOBIN 9.2 g/dL (12.0-16.0); LYMPHOCYTES # (AUTO) 1.2 X10^3/uL (1.3-2.9); MEAN CORPUSCULAR HEMOGLOBIN 24.9 pg (27.0-34.0); MEAN CORPUSCULAR HGB CONC 30.9 g/dL (33.0-35.0); MEAN CORPUSCULAR VOLUME 80.6 fL (80.0-100.0); MEAN PLATELET VOLUME 9.4 fL (7.4-11.0); MONOCYTES # (AUTO) 1.2 x10^3/uL (0.3-0.8); MONOCYTES % (AUTO) 8.1 % (0.0-13.0); NEUTROPHILS # (AUTO) 12.7 x10^3/uL (2.2-4.8); NEUTROPHILS % (AUTO) 83.2 % (42.0-75.0); PLATELET COUNT 412 X10^3/uL (150.0-450.0); RED BLOOD COUNT 3.68 X10^6/uL (3.5-5.4); RED CELL DISTRIBUTION WIDTH 21.8 % (11.6-16.5); WHITE BLOOD COUNT 15.2 X10^3/uL (3.6-10.0)
[2020-05-25 06:16] LABS: ALANINE AMINOTRANSFERASE 11 Units/L (12-78); ALBUMIN 1.3 g/dL (3.4-5.0); ALKALINE PHOSPHATASE 123 Units/L (46-116); ASPARTATE AMINO TRANSFERASE 22 Units/L (15-37); BLOOD UREA NITROGEN 35 mg/dL (7-18); CALCIUM 7.7 mg/dL (8.5-10.1); CARBON DIOXIDE 17.9 mmol/L (21-32); CHLORIDE 113 mmol/L (98-107); COR CA(FOR HYPOALB) 9.9 mg/dL (8.5-10.1); COR NA(FOR HYPERGLY) 147 mmol/L (136-145); CREATININE 0.91 mg/dL (0.55-1.02); MAGNESIUM 1.5 mg/dL (1.7-2.9); SODIUM 144 mmol/L (136-145); TOTAL PROTEIN 5.5 g/dL (6.4-8.2); eGFR NON BLACK RACES > 60 (>60)
[2020-05-25] MEDS: GLUCOPHAGE PO SCH (06:17)
[2020-05-25] MEDS: JANUVIA PO SCH (06:18)
[2020-05-25] MEDS ORDERED: MAGNESIUM SULFATE 1 GRAM/100 mL PREMIX 1 GM/100 ML BAG IV PRN (06:25)
[2020-05-25 07:20] LABS: BAND NEUTROPHILS % 2 % (0-10)
[2020-05-25 07:23] LABS: PLATELET MORPHOLOGY COMMENT NORMAL (NORMAL)
[2020-05-25 07:24] LABS: ANISOCYTOSIS 1+
[2020-05-25] MEDS: FERROUS GLUCONATE PO SCH (08:38)
[2020-05-25] MEDS: COREG TAB 12.5 MG PO SCH (08:38)
[2020-05-25] MEDS: ZINC SULFATE PO SCH (08:40)
[2020-05-25] MEDS: VITAMIN A PO SCH (08:40)
[2020-05-25] MEDS: PLAQUENIL PO SCH (08:41)
[2020-05-25] MEDS: VITAMIN B-1 PO SCH (08:41)
[2020-05-25] MEDS: FOLIC ACID TAB 1 MG PO SCH (08:41)
[2020-05-25] MEDS: FLONASE NASAL SPRAY ENOSTRIL SCH (08:41)
[2020-05-25] MEDS: VSL#3 PO SCH (08:42)
[2020-05-25] MEDS: VITAMIN D3 125 mcg (5,000 UNITS) PO SCH (08:42)
[2020-05-25] MEDS: LOVENOX INJ 30 MG SYR SC SCH (08:43)
[2020-05-25] MEDS: TYGACIL 50 MG VIAL 50 MG in NS 100 ML IV 100 ML IV SCH (08:43)
[2020-05-25] MEDS: ZOLOFT PO SCH (11:16)
[2020-05-25] MEDS: DECADRON INJ IV SCH (11:17)
[2020-05-25 12:29] VITALS: BP 129/64
== END 2020-05-25 12:25 | DRG 178 ==
LOC: ICU 10:08
PROVIDERS: ADMIT Obstetrics & Gynecology Obstetrics; ATTEND Obstetrics & Gynecology Obstetrics

== ENCOUNTER 2020-09-26 18:03 | Inpatient (IN) ==
--- NOTE | 2020-09-26 18:39 | DR.GENAD ---
HPI Time Seen Time Seen by Provider: 09/26/20 18:28 PCP Primary Care Physician: LILO HPI Comment HPI Comment: An 84 y/o female Detention resident presenting with c/o noting blood per rectum. She denies abdominal or rectal pain. Nursing staff's notes were reviewed. The pt. is a Orthodoxy. Complaint/Symptoms Chief Complaint:: PT. WAS BROUGHT FROM [facility] WITH C/O PASSING CLOTS FROM RECTUM. PT. STATES SHE WAS SITTING ON THE SIDE OF THE BED AND IS UNSURE IF BLOOD WAS COMING FROM RECTUM OR VAGINA. STAFF STATE THAT PT. WAS SITTING ON THE SIDE OF THE BED EATING AND NOTICED LARGE AMOUNT OF BLOOD IN DIAPER AND BLOOD WAS NOTED ON FLOOR. PT. STATES SHE HAD N/V/D ON 09/25/20 BUT FEELS FINE TODAY. PT. VOICES NO C/O PAIN AT THIS TIME. COVID-19 Coronavirus risk:travel/contact w/high risk person: No Has patient experienced Coronavirus symptoms: No Nurses notes reviewed Nurses Notes Review: Yes Source History Provided: Patient and Detention Mode of Arrival Mode of Arrival: Stretcher Timing Onset of Chief Complaint: 09/26/20 Came on: Suddenly Modifying Factors Worsens:: nothing Improves:: nothing PMH PMH Past Medical History: Yes Past Medical History: COPD, Dementia, Depression, Diabetes and Hypertension Past Surgical History: Yes Surgical History: Ortho Surgery and Other Family History History of Family Medical Conditions: Yes Family Medical History: Diabetes Mellitus, Coronary Artery Disease, Heart Failure and Hypertension Social History Does patient currently use any type of tobacco product: No Have you used tobacco products in the last 12 months: No Type of Tobacco Use: None Does any household member use tobacco: No Alcohol Use: None Do you use any recreational Drugs:: No Lives Where: Detention Travel Risk Coronavirus risk:travel/contact w/high risk person: No Has patient experienced Coronavirus symptoms: No Infectious screening In the last 2 months have you had wt loss of >10#?: NO Have you had fever, night sweats or hemotysis?: No Have you traveled outside the country in the last 6 months?: No Isolation: Standard ROS Review of Systems Constitutional: No Symptoms Reported Eyes: No Symptoms Reported ENTM: No Symptoms Reported Respiratoy: No Symptoms Reported Cardiovascular: No Symptoms Reported Gastrointestinal/Abdominal: Other (rectal bleed) Genitourinary: No Symptoms Reported Neurological: No Symptoms Reported Musculoskeletal: No Symptoms Reported Integumentary: No Symptoms Reported Hematologic/Lymphatic: No Symptoms Reported Endocrine: No Symptoms Reported Psychiatric: No Symptoms Reported PE Vital Signs Vitals: Temperature 98.2 F Pulse Rate 62 Respiratory Rate 17 Blood Pressure [left leg] 92/37 Blood Pressure [Right Arm] 129/64 Blood Pressure 120/64 O2 Sat by Pulse Oximetry 97 General Limitations: No Limitations General Appearance: Alert and In No Apparent Distress Head Head Exam: Normal Inspection, Atraumatic and Normocephalic Eyes Eye exam: Normal Appearance and EOMI ENT ENT Exam: Normal Exam, Normal Oropharynx, Normal External Ear Exam and Mucous Membranes Moist Neck Neck Exam: Normal Inspection, Full ROM and Trachea Midline Chest Chest Inspection: Normal Inspection and Symmetric Chest Wall Rise Respiratory Respiratory Exam: Normal Lung Sounds Bilat Cardiovascular Cardiovascular Exam: Regular Rate, Normal Rhythm, Normal Heart Sounds, +S1 and +S2 Abdominal Exam Abdominal Exam: Normal Inspection, Normal Bowel Sounds and Soft Extremities Extremities Exam: Normal Inspection and Full ROM Back Back Exam: Normal Inspection and Full ROM Neurologic Neurological Exam: Alert and Oriented X3 Psychiatric Psychiatric Exam: Normal Affect and Normal Mood Skin Skin Exam: Dry and Normal Color Other Exam Other Exam: Gross red blood and clots noted on her adult diaper. COURSE Treatment Treatment: I had spoken with the pt. and later her daughter, both affirmed there not being interest in having transfusion of PRBCs on pentecostalism grounds. I spoke with rn telephone triage Physician (Rui), she agrees to having the pt. held in Observation status and we'll repeat CBC in a.m. Reevaluation 1st: Unchanged Education/Counseling Education/Counseling: Patient, Education and Counseling Educated On: Treatment, Diagnosis, Prognosis and Needs for Follow Up ROR Labs Reviewed Laboratory Results Reviewed?: Yes Result Diagrams: 09/26/20 18:45 09/26/20 18:45 Laboratory: WBC 7.0 X10^3/uL (3.6-10.0) 09/26/20 18:45 RBC 4.25 X10^6/uL (3.5-5.4) 09/26/20 18:45 Hgb 10.4 g/dL (12.0-16.0) L 09/26/20 18:45 Hct 32.0 % (36.0-47.0) L 09/26/20 18:45 MCV 75.2 fL (80.0-100.0) L 09/26/20 18:45 MCH 24.4 pg (27.0-34.0) L 09/26/20 18:45 MCHC 32.5 g/dL (33.0-35.0) L 09/26/20 18:45 RDW 17.8 % (11.6-16.5) H 09/26/20 18:45 Plt Count 380 X10^3/uL (150.0-450.0) 09/26/20 18:45 Plt Count Comment Adequate (ADEQUATE) 09/26/20 18:45 MPV 7.6 fL (7.4-11.0) 09/26/20 18:45 Neut % (Auto) 59.6 % (42.0-75.0) 09/26/20 18:45 Lymph % (Auto) 23.3 % (21.0-51.0) 09/26/20 18:45 [place] % (Auto) 10.9 % (0.0-13.0) 09/26/20 18:45 Eos % (Auto) 4.8 % (0.9-2.9) H 09/26/20 18:45 Baso % (Auto) 1.4 % (0.2-1.0) H 09/26/20 18:45 Neut # (Auto) 4.2 x10^3/uL (2.2-4.8) 09/26/20 18:45 Lymph # (Auto) 1.6 X10^3/uL (1.3-2.9) 09/26/20 18:45 [place] # (Auto) 0.8 x10^3/uL (0.3-0.8) 09/26/20 18:45 Eos # (Auto) 0.3 x10^3/uL (0.0-0.2) H 09/26/20 18:45 Baso # (Auto) 0.1 X10^3/uL (0.0-0.1) 09/26/20 18:45 Absolute Nucleated RBC 0.0 /100WBC 09/26/20 18:45 Plt Morphology Comment Normal (NORMAL) 09/26/20 18:45 RBC Morphology Abnormal (NORMAL) A 09/26/20 18:45 Hypochromasia Slight A 09/26/20 18:45 PT 12.6 SECONDS (11.8-14.3) 09/26/20 18:45 INR Target Range - 09/26/20 18:45 INR 0.97 (0.8-1.3) 09/26/20 18:45 APTT 28.3 SECONDS (22.9-36.5) 09/26/20 18:45 PTT Comment - 09/26/20 18:45 Sodium 135 mmol/L (136-145) L 09/26/20 18:45 Corrected Sodium 136 mmol/L (136-145) 09/26/20 18:45 Potassium 4.7 mmol/L (3.5-5.1) 09/26/20 18:45 Chloride 100 mmol/L (98-107) 09/26/20 18:45 Carbon Dioxide 27.7 mmol/L (21-32) 09/26/20 18:45 BUN 51 mg/dL (7-18) H 09/26/20 18:45 Creatinine 0.85 mg/dL (0.55-1.02) 09/26/20 18:45 Est GFR (MDRD) Af Amer > 60 (>60) 09/26/20 18:45 Est GFR (MDRD) Non-Af > 60 (>60) 09/26/20 18:45 Glucose 121 mg/dL (65-99) H 09/26/20 18:45 Calcium 9.8 mg/dL (8.5-10.1) 09/26/20 18:45 Corrected Calcium 10.9 mg/dL (8.5-10.1) H 09/26/20 18:45 Total Bilirubin 0.10 mg/dL (0.2-1.0) L 09/26/20 18:45 AST 15 Units/L (15-37) 09/26/20 18:45 ALT 21 Units/L (12-78) 09/26/20 18:45 Alkaline Phosphatase 78 Units/L (46-116) 09/26/20 18:45 Total Protein 6.9 g/dL (6.4-8.2) 09/26/20 18:45 Albumin 2.6 g/dL (3.4-5.0) L 09/26/20 18:45 Globulin 4.3 g/dL (2.5-4.5) 09/26/20 18:45 Albumin/Globulin Ratio 0.6 Ratio (1.1-2.1) L 09/26/20 18:45 Stool Description Ifob 09/26/20 18:40 Stl Occult Blood (IFOB) Positive (NEGATIVE) A 09/26/20 18:40 Opioid Opioid Risk Tool Age (Koby box if 16-45): No History of Preadolescent Sexual Abuse: No Total: 0 Total Score Risk Category: Low Risk Copyright: Percy MOLINA predicting aberrant behaviors Diagnosis Discharge Problem: Rectal bleed, Azotemia
[2020-09-26 19:10] LABS: BASOPHILS # (AUTO) 0.1 X10^3/uL (0.0-0.1); BASOPHILS % (AUTO) 1.4 % (0.2-1.0); EOSINOPHILS # (AUTO) 0.3 x10^3/uL (0.0-0.2); EOSINOPHILS % (AUTO) 4.8 % (0.9-2.9); HEMOGLOBIN 10.4 g/dL (12.0-16.0); LYMPHOCYTES # (AUTO) 1.6 X10^3/uL (1.3-2.9); LYMPHOCYTES % (AUTO) 23.3 % (21.0-51.0); MEAN CORPUSCULAR HEMOGLOBIN 24.4 pg (27.0-34.0); MEAN CORPUSCULAR HGB CONC 32.5 g/dL (33.0-35.0); MEAN CORPUSCULAR VOLUME 75.2 fL (80.0-100.0); MEAN PLATELET VOLUME 7.6 fL (7.4-11.0); MONOCYTES # (AUTO) 0.8 x10^3/uL (0.3-0.8); MONOCYTES % (AUTO) 10.9 % (0.0-13.0); NEUTROPHILS # (AUTO) 4.2 x10^3/uL (2.2-4.8); NEUTROPHILS % (AUTO) 59.6 % (42.0-75.0); PLATELET COUNT 380 X10^3/uL (150.0-450.0); RED BLOOD COUNT 4.25 X10^6/uL (3.5-5.4); RED CELL DISTRIBUTION WIDTH 17.8 % (11.6-16.5)
[2020-09-26 19:17] LABS: ALANINE AMINOTRANSFERASE 21 Units/L (12-78); ALBUMIN 2.6 g/dL (3.4-5.0); ALKALINE PHOSPHATASE 78 Units/L (46-116); ASPARTATE AMINO TRANSFERASE 15 Units/L (15-37); BLOOD UREA NITROGEN 51 mg/dL (7-18); CALCIUM 9.8 mg/dL (8.5-10.1); CARBON DIOXIDE 27.7 mmol/L (21-32); CHLORIDE 100 mmol/L (98-107); COR CA(FOR HYPOALB) 10.9 mg/dL (8.5-10.1); COR NA(FOR HYPERGLY) 136 mmol/L (136-145); CREATININE 0.85 mg/dL (0.55-1.02); SODIUM 135 mmol/L (136-145); TOTAL PROTEIN 6.9 g/dL (6.4-8.2); eGFR NON BLACK RACES > 60 (>60)
[2020-09-26 19:47] LABS: HYPOCHROMASIA SLIGHT; PLATELET MORPHOLOGY COMMENT NORMAL (NORMAL)
[2020-09-26] MEDS ORDERED: NS 1000 ML 1,000 ML IV ONE (20:21)
[2020-09-26] MEDS ORDERED: NS 1000 ML 1,000 ML ONE (20:23)
[2020-09-26] MEDS ORDERED: HumuLIN R SC PRN (21:44)
--- NOTE | 2020-09-26 21:50 | DR.GENAD ---
HPI Time Seen Time Seen by Provider: 09/26/20 18:28 PCP Primary Care Physician: NAGY Complaint/Symptoms Chief Complaint:: PT. WAS BROUGHT FROM [facility] WITH C/O PASSING CLOTS FROM RECTUM. PT. STATES SHE WAS SITTING ON THE SIDE OF THE BED AND IS UNSURE IF BLOOD WAS COMING FROM RECTUM OR VAGINA. STAFF STATE THAT PT. WAS SITTING ON THE SIDE OF THE BED EATING AND NOTICED LARGE AMOUNT OF BLOOD IN DIAPER AND BLOOD WAS NOTED ON FLOOR. PT. STATES SHE HAD N/V/D ON 09/25/20 BUT FEELS FINE TODAY. PT. VOICES NO C/O PAIN AT THIS TIME. COVID-19 Coronavirus risk:travel/contact w/high risk person: No Has patient experienced Coronavirus symptoms: No Nurses notes reviewed Nurses Notes Review: Yes Source History Provided: Patient and Group Home Mode of Arrival Mode of Arrival: Stretcher Timing Onset of Chief Complaint: 09/26/20 Came on: Suddenly Modifying Factors Worsens:: nothing Improves:: nothing PMH PMH Past Medical History: Yes Past Medical History: COPD, Dementia, Depression, Diabetes and Hypertension Past Surgical History: Yes Surgical History: Ortho Surgery and Other Family History History of Family Medical Conditions: Yes Family Medical History: Diabetes Mellitus, Coronary Artery Disease, Heart Failure and Hypertension Social History Does patient currently use any type of tobacco product: No Have you used tobacco products in the last 12 months: No Type of Tobacco Use: None Does any household member use tobacco: No Alcohol Use: None Do you use any recreational Drugs:: No Lives Where: Group Home Travel Risk Coronavirus risk:travel/contact w/high risk person: No Has patient experienced Coronavirus symptoms: No Infectious screening In the last 2 months have you had wt loss of >10#?: NO Have you had fever, night sweats or hemotysis?: No Have you traveled outside the country in the last 6 months?: No Isolation: Standard PE Vital Signs Vitals: Temperature 98.2 F Pulse Rate 62 Respiratory Rate 17 Blood Pressure [left leg] 92/37 Blood Pressure [Right Arm] 129/64 Blood Pressure 120/64 O2 Sat by Pulse Oximetry 97 ROR Labs Reviewed Result Diagrams: 09/26/20 18:45 09/26/20 18:45 Laboratory: WBC 7.0 X10^3/uL (3.6-10.0) 09/26/20 18:45 RBC 4.25 X10^6/uL (3.5-5.4) 09/26/20 18:45 Hgb 10.4 g/dL (12.0-16.0) L 09/26/20 18:45 Hct 32.0 % (36.0-47.0) L 09/26/20 18:45 MCV 75.2 fL (80.0-100.0) L 09/26/20 18:45 MCH 24.4 pg (27.0-34.0) L 09/26/20 18:45 MCHC 32.5 g/dL (33.0-35.0) L 09/26/20 18:45 RDW 17.8 % (11.6-16.5) H 09/26/20 18:45 Plt Count 380 X10^3/uL (150.0-450.0) 09/26/20 18:45 Plt Count Comment Adequate (ADEQUATE) 09/26/20 18:45 MPV 7.6 fL (7.4-11.0) 09/26/20 18:45 Neut % (Auto) 59.6 % (42.0-75.0) 09/26/20 18:45 Lymph % (Auto) 23.3 % (21.0-51.0) 09/26/20 18:45 [place] % (Auto) 10.9 % (0.0-13.0) 09/26/20 18:45 Eos % (Auto) 4.8 % (0.9-2.9) H 09/26/20 18:45 Baso % (Auto) 1.4 % (0.2-1.0) H 09/26/20 18:45 Neut # (Auto) 4.2 x10^3/uL (2.2-4.8) 09/26/20 18:45 Lymph # (Auto) 1.6 X10^3/uL (1.3-2.9) 09/26/20 18:45 [place] # (Auto) 0.8 x10^3/uL (0.3-0.8) 09/26/20 18:45 Eos # (Auto) 0.3 x10^3/uL (0.0-0.2) H 09/26/20 18:45 Baso # (Auto) 0.1 X10^3/uL (0.0-0.1) 09/26/20 18:45 Absolute Nucleated RBC 0.0 /100WBC 09/26/20 18:45 Plt Morphology Comment Normal (NORMAL) 09/26/20 18:45 RBC Morphology Abnormal (NORMAL) A 09/26/20 18:45 Hypochromasia Slight A 09/26/20 18:45 PT 12.6 SECONDS (11.8-14.3) 09/26/20 18:45 INR Target Range - 09/26/20 18:45 INR 0.97 (0.8-1.3) 09/26/20 18:45 APTT 28.3 SECONDS (22.9-36.5) 09/26/20 18:45 PTT Comment - 09/26/20 18:45 Sodium 135 mmol/L (136-145) L 09/26/20 18:45 Corrected Sodium 136 mmol/L (136-145) 09/26/20 18:45 Potassium 4.7 mmol/L (3.5-5.1) 09/26/20 18:45 Chloride 100 mmol/L (98-107) 09/26/20 18:45 Carbon Dioxide 27.7 mmol/L (21-32) 09/26/20 18:45 BUN 51 mg/dL (7-18) H 09/26/20 18:45 Creatinine 0.85 mg/dL (0.55-1.02) 09/26/20 18:45 Est GFR (MDRD) Af Amer > 60 (>60) 09/26/20 18:45 Est GFR (MDRD) Non-Af > 60 (>60) 09/26/20 18:45 Glucose 121 mg/dL (65-99) H 09/26/20 18:45 Calcium 9.8 mg/dL (8.5-10.1) 09/26/20 18:45 Corrected Calcium 10.9 mg/dL (8.5-10.1) H 09/26/20 18:45 Total Bilirubin 0.10 mg/dL (0.2-1.0) L 09/26/20 18:45 AST 15 Units/L (15-37) 09/26/20 18:45 ALT 21 Units/L (12-78) 09/26/20 18:45 Alkaline Phosphatase 78 Units/L (46-116) 09/26/20 18:45 Total Protein 6.9 g/dL (6.4-8.2) 09/26/20 18:45 Albumin 2.6 g/dL (3.4-5.0) L 09/26/20 18:45 Globulin 4.3 g/dL (2.5-4.5) 09/26/20 18:45 Albumin/Globulin Ratio 0.6 Ratio (1.1-2.1) L 09/26/20 18:45 Stool Description Ifob 09/26/20 18:40 Stl Occult Blood (IFOB) Positive (NEGATIVE) A 09/26/20 18:40 Opioid Opioid Risk Tool Age (Koby box if 16-45): No History of Preadolescent Sexual Abuse: No Total: 0 Total Score Risk Category: Low Risk Copyright: Percy MOLINA predicting aberrant behaviors Diagnosis Discharge Problem: Rectal bleed, Azotemia
[2020-09-26 22:27] LABS: HEMOGLOBIN 8.8 g/dL (12.0-16.0)
[2020-09-27] MEDS: NS 1000 ML 1,000 ML IV SCH ×5 (01:00→21:33)
[2020-09-27] MEDS ORDERED: PHARMACY CONSULT LTC MEDICATIONS XX SCH (05:00)
[2020-09-27 06:43] LABS: BASOPHILS # (AUTO) 0.1 X10^3/uL (0.0-0.1); BASOPHILS % (AUTO) 0.9 % (0.2-1.0); EOSINOPHILS # (AUTO) 0.3 x10^3/uL (0.0-0.2); EOSINOPHILS % (AUTO) 2.3 % (0.9-2.9); HEMATOCRIT 22.9 % (36.0-47.0); HEMOGLOBIN 7.4 g/dL (12.0-16.0); LYMPHOCYTES % (AUTO) 14.7 % (21.0-51.0); MEAN CORPUSCULAR HEMOGLOBIN 24.5 pg (27.0-34.0); MEAN CORPUSCULAR HGB CONC 32.4 g/dL (33.0-35.0); MEAN CORPUSCULAR VOLUME 75.6 fL (80.0-100.0); MEAN PLATELET VOLUME 8.1 fL (7.4-11.0); MONOCYTES # (AUTO) 1.1 x10^3/uL (0.3-0.8); MONOCYTES % (AUTO) 8.1 % (0.0-13.0); PLATELET COUNT 322 X10^3/uL (150.0-450.0); RED BLOOD COUNT 3.04 X10^6/uL (3.5-5.4); RED CELL DISTRIBUTION WIDTH 17.5 % (11.6-16.5); WHITE BLOOD COUNT 13.5 X10^3/uL (3.6-10.0)
[2020-09-27 06:57] LABS: ALANINE AMINOTRANSFERASE 18 Units/L (12-78); ALBUMIN 2.4 g/dL (3.4-5.0); ALKALINE PHOSPHATASE 63 Units/L (46-116); ASPARTATE AMINO TRANSFERASE 18 Units/L (15-37); BLOOD UREA NITROGEN 45 mg/dL (7-18); CARBON DIOXIDE 25.2 mmol/L (21-32); CHLORIDE 104 mmol/L (98-107); COR CA(FOR HYPOALB) 10.3 mg/dL (8.5-10.1); COR NA(FOR HYPERGLY) 139 mmol/L (136-145); CREATININE 0.75 mg/dL (0.55-1.02); SODIUM 138 mmol/L (136-145); TOTAL PROTEIN 6.1 g/dL (6.4-8.2); eGFR NON BLACK RACES > 60 (>60)
[2020-09-27 07:31] LABS: HYPOCHROMASIA SLIGHT; PLATELET MORPHOLOGY COMMENT NORMAL (NORMAL)
[2020-09-27] MEDS ORDERED: NS 1000 ML 1,000 ML IV ONE ×2 (09:11→17:49)
[2020-09-27] MEDS ORDERED: PERCOCET TAB 5/325 MG PEG PRN (09:44)
[2020-09-27] MEDS ORDERED: QUESTRAN POWDER FOR ORAL SUSP PO SCH (09:45)
[2020-09-27] MEDS ORDERED: VSL#3 PO SCH (09:45)
[2020-09-27] MEDS ORDERED: NS 100 ML IV 100 ML with VENOFER 400 MG IV NR ×2 (09:54)
[2020-09-27] MEDS ORDERED: BUTT CREAM (COMPOUND) ONE (09:55)
[2020-09-27] MEDS ORDERED: NS IRRIGATION* 500 ML IR ONE (09:56)
[2020-09-27 09:58] LABS: HEMATOCRIT 22.1 % (36.0-47.0); HEMOGLOBIN 7.2 g/dL (12.0-16.0)
[2020-09-27] MEDS ORDERED: ZOLOFT PO SCH (10:00)
[2020-09-27] MEDS ORDERED: COREG TAB 12.5 MG PO SCH (10:00)
[2020-09-27] MEDS ORDERED: VITAMIN D3 125 mcg (5,000 UNITS) PO SCH (10:00)
[2020-09-27] MEDS ORDERED: VITAMIN B-12 PO SCH (10:00)
[2020-09-27] MEDS: BUTT CREAM (COMPOUND) TOP SCH (11:00)
[2020-09-27 11:13] VITALS: BMI 27.0
[2020-09-27] MEDS ORDERED: ASTELIN NASAL SPRAY ENOSTRIL ONE (11:26)
[2020-09-27] MEDS: AMINO ACIDS PROTEIN HYDROLYS PEG SCH (12:01)
[2020-09-27] MEDS: [UNRECOGNIZED DRUG - OTHER] PEG SCH (12:01)
[2020-09-27] MEDS: ASTELIN NASAL SPRAY ENOSTRIL SCH ×2 (12:02→21:27)
[2020-09-27] MEDS: VOLTAREN 1 % GEL MULTI DOSE TUBE TOP SCH ×4 (12:03→21:33)
[2020-09-27] MEDS: FLONASE NASAL SPRAY ENOSTRIL SCH (12:04)
[2020-09-27] MEDS: VITAMIN C PEG SCH (12:07)
[2020-09-27] MEDS: NEURONTIN CAP 300 MG PEG SCH ×2 (12:08→21:28)
[2020-09-27] MEDS: FOLIC ACID TAB 1 MG PEG SCH (12:08)
[2020-09-27] MEDS ORDERED: VANCOMYCIN HCL 250 MG CAP PO SCH (18:00)
[2020-09-27] MEDS: FLAGYL TAB 500 MG PO SCH ×2 (18:30→21:28)
[2020-09-27] MEDS: COREG TAB 12.5 MG PEG SCH (21:27)
[2020-09-27] MEDS: HEMOCYTE-PLUS PEG SCH (21:28)
[2020-09-27] MEDS: VANCOMYCIN HCL PEG SCH (21:30)
[2020-09-27] MEDS: ZINC SULFATE PEG SCH (21:32)
[2020-09-27 22:12] LABS: HEMATOCRIT 19.6 % (36.0-47.0); HEMOGLOBIN 6.4 g/dL (12.0-16.0)
[2020-09-28] MEDS: VANCOMYCIN HCL PEG SCH ×4 (06:00→21:45)
[2020-09-28 07:07] LABS: ALANINE AMINOTRANSFERASE 19 Units/L (12-78); ALBUMIN 2.2 g/dL (3.4-5.0); ALKALINE PHOSPHATASE 58 Units/L (46-116); ASPARTATE AMINO TRANSFERASE 27 Units/L (15-37); BLOOD UREA NITROGEN 26 mg/dL (7-18); CALCIUM 8.6 mg/dL (8.5-10.1); CHLORIDE 108 mmol/L (98-107); COR NA(FOR HYPERGLY) 140 mmol/L (136-145); CREATININE 0.68 mg/dL (0.55-1.02); SODIUM 140 mmol/L (136-145); TOTAL PROTEIN 5.7 g/dL (6.4-8.2); eGFR NON BLACK RACES > 60 (>60)
[2020-09-28 07:19] LABS: BASOPHILS # (AUTO) 0.1 X10^3/uL (0.0-0.1); BASOPHILS % (AUTO) 1.1 % (0.2-1.0); EOSINOPHILS # (AUTO) 0.3 x10^3/uL (0.0-0.2); EOSINOPHILS % (AUTO) 2.7 % (0.9-2.9); LYMPHOCYTES # (AUTO) 1.6 X10^3/uL (1.3-2.9); LYMPHOCYTES % (AUTO) 16.3 % (21.0-51.0); MEAN CORPUSCULAR HEMOGLOBIN 25.1 pg (27.0-34.0); MEAN CORPUSCULAR HGB CONC 32.6 g/dL (33.0-35.0); MEAN CORPUSCULAR VOLUME 76.9 fL (80.0-100.0); MEAN PLATELET VOLUME 8.7 fL (7.4-11.0); MONOCYTES % (AUTO) 10.9 % (0.0-13.0); NEUTROPHILS # (AUTO) 6.6 x10^3/uL (2.2-4.8); PLATELET COUNT 254 X10^3/uL (150.0-450.0); RED BLOOD COUNT 2.29 X10^6/uL (3.5-5.4); RED CELL DISTRIBUTION WIDTH 18.3 % (11.6-16.5); WHITE BLOOD COUNT 9.6 X10^3/uL (3.6-10.0)
[2020-09-28 07:20] LABS: CARBON DIOXIDE 21.5 mmol/L (21-32)
[2020-09-28 07:26] LABS: HEMATOCRIT 17.6 % (36.0-47.0); HEMOGLOBIN 5.7 g/dL (12.0-16.0)
[2020-09-28 07:38] LABS: HYPOCHROMASIA 2+; PLATELET MORPHOLOGY COMMENT NORMAL (NORMAL)
[2020-09-28] MEDS: NS 1000 ML 1,000 ML IV SCH ×4 (07:45→21:17)
[2020-09-28] MEDS ORDERED: GLUCOPHAGE ONE (08:12)
[2020-09-28] MEDS ORDERED: ZOLOFT ONE (08:14)
[2020-09-28] MEDS: ASTELIN NASAL SPRAY ENOSTRIL SCH ×2 (08:26→21:16)
[2020-09-28] MEDS: COREG TAB 12.5 MG PEG SCH ×2 (08:26→21:15)
[2020-09-28] MEDS: BUTT CREAM (COMPOUND) TOP SCH (08:26)
[2020-09-28] MEDS: HEMOCYTE-PLUS PEG SCH ×2 (08:27→21:16)
[2020-09-28] MEDS: FLONASE NASAL SPRAY ENOSTRIL SCH (08:27)
[2020-09-28] MEDS: FOLIC ACID TAB 1 MG PEG SCH (08:27)
[2020-09-28] MEDS: NEURONTIN CAP 300 MG PEG SCH ×2 (08:28→21:17)
[2020-09-28] MEDS: FLAGYL TAB 500 MG PO SCH ×4 (08:28→21:16)
[2020-09-28] MEDS: VOLTAREN 1 % GEL MULTI DOSE TUBE TOP SCH ×4 (08:30→21:17)
[2020-09-28] MEDS: VITAMIN C PEG SCH (08:30)
[2020-09-28] MEDS: ZINC SULFATE PEG SCH ×2 (08:32→21:17)
[2020-09-28] MEDS: [UNRECOGNIZED DRUG - OTHER] PEG SCH (08:39)
[2020-09-28] MEDS: AMINO ACIDS PROTEIN HYDROLYS PEG SCH (08:39)
[2020-09-28] MEDS ORDERED: VITAMIN D3 125 mcg (5,000 UNITS) PEG SCH (09:00)
[2020-09-28] MEDS ORDERED: GLUCOPHAGE PEG SCH (09:00)
[2020-09-28] MEDS ORDERED: ZOLOFT PEG SCH (09:00)
[2020-09-28] MEDS ORDERED: JANUVIA PEG SCH (09:00)
[2020-09-28] MEDS ORDERED: QUESTRAN POWDER FOR ORAL SUSP PEG SCH (09:00)
[2020-09-28] MEDS ORDERED: VSL#3 PEG SCH (09:00)
[2020-09-28] MEDS ORDERED: TAB-A-VITE PEG SCH (09:00)
[2020-09-28] MEDS ORDERED: STERILE WATER IRRIGATION IR PRN (09:54)
[2020-09-28] MEDS ORDERED: PROCRIT or EPOGEN VIAL 10,000 UNITS SC SCH (10:00)
[2020-09-28 10:32] LABS: HEMOGLOBIN 6.2 g/dL (12.0-16.0)
[2020-09-28] MEDS ORDERED: PROCRIT or EPOGEN VIAL 10,000 UNITS SC ONE (17:14)
[2020-09-29] MEDS: VANCOMYCIN HCL PEG SCH (03:02)
[2020-09-29 04:33] VITALS: BP 97/49
[2020-10-01] MEDS ORDERED: PROCRIT or EPOGEN VIAL 10,000 UNITS SC ONE (09:00)
== END 2020-09-29 04:25 | disposition critical access hospital (66) | DRG 378 ==
LOC: MED/SURG 18:03 → ER 18:03 → MED/SURG 23:56
PROVIDERS: ADMIT Internal Medicine; ATTEND Obstetrics & Gynecology Obstetrics
DX: R26.89 Other abnormalities of gait and mobility; K62.5 Hemorrhage of anus and rectum; J44.9 Chronic obstructive pulmonary disease, unspecified; Z20.828 Contact with and (suspected) exposure to other viral communicable diseases; L89.152 Pressure ulcer of sacral region, stage 2; I10 Essential (primary) hypertension; E11.65 Type 2 diabetes mellitus with hyperglycemia; A04.71 Enterocolitis due to Clostridium difficile, recurrent

== ENCOUNTER 2022-06-24 10:48 | Observation (INO) ==
[2022-06-25 01:23] VITALS: BMI 22.9
[2022-06-25] MEDS: DUONEB 0.5 MG/3 MG (3 mL) NEB SCH ×3 (01:30→12:07)
[2022-06-25] MEDS ORDERED: PHARMACY CONSULT LTC MEDICATIONS XX SCH (02:00)
[2022-06-25] MEDS ORDERED: PULMICORT NEB TX 0.5 MG NEB SCH (09:00)
[2022-06-25] MEDS ORDERED: ROXICODONE TAB 5 MG PO PRN (09:07)
[2022-06-25] MEDS ORDERED: [UNRECOGNIZED DRUG - OTHER] PO SCH (09:15)
[2022-06-25] MEDS ORDERED: AMINO ACIDS PROTEIN HYDROLYS PO SCH (09:15)
[2022-06-25] MEDS ORDERED: ZADITOR EYE DROPS OP SCH (09:15)
[2022-06-25] MEDS ORDERED: NovoLIN R (or HumuLIN R) SUBCUT PRN (09:59)
[2022-06-25] MEDS ORDERED: NORVASC TAB 10 MG PO SCH (10:00)
[2022-06-25] MEDS ORDERED: COREG TAB 12.5 MG PO SCH (10:00)
[2022-06-25] MEDS ORDERED: ZOLOFT PO SCH (10:00)
[2022-06-25] MEDS ORDERED: BACTROBAN CREAM TOP SCH (10:00)
[2022-06-25] MEDS ORDERED: PROTONIX TAB 40 MG PO SCH (10:00)
[2022-06-25] MEDS ORDERED: NovoLIN R (or HumuLIN R) SUBCUT SCH (10:00)
[2022-06-25] MEDS: RHINOCORT ALLERGY NASAL SPRAY ENOSTRIL SCH ×4 (10:14→13:29)
[2022-06-25] MEDS ORDERED: ASTELIN NASAL SPRAY ENOSTRIL ONE (13:35)
[2022-06-25 13:43] LABS: BASOPHILS % (AUTO) 0.6 % (0.2-1.0); EOSINOPHILS % (AUTO) 12.9 % (0.9-2.9); HEMATOCRIT 37.9 % (36.0-47.0); HEMOGLOBIN 12.7 g/dL (12.0-16.0); LYMPHOCYTES # (AUTO) 1.5 X10^3/uL (1.3-2.9); LYMPHOCYTES % (AUTO) 19.4 % (21.0-51.0); MEAN CORPUSCULAR HEMOGLOBIN 26.8 pg (27.0-34.0); MEAN CORPUSCULAR HGB CONC 33.4 g/dL (33.0-35.0); MEAN CORPUSCULAR VOLUME 80.4 fL (80.0-100.0); MEAN PLATELET VOLUME 8.1 fL (7.4-11.0); MONOCYTES # (AUTO) 0.5 x10^3/uL (0.3-0.8); MONOCYTES % (AUTO) 7.1 % (0.0-13.0); NEUTROPHILS # (AUTO) 4.6 x10^3/uL (2.2-4.8); RED BLOOD COUNT 4.72 X10^6/uL (3.5-5.4); RED CELL DISTRIBUTION WIDTH 16.7 % (11.6-16.5); WHITE BLOOD COUNT 7.6 X10^3/uL (3.6-10.0)
[2022-06-25] MEDS ORDERED: BACTROBAN TOPICAL OINT TOP SCH (14:00)
[2022-06-25] MEDS ORDERED: VOLTAREN 1 % GEL MULTI DOSE TUBE TOP SCH (14:00)
[2022-06-25] MEDS ORDERED: ASTELIN NASAL SPRAY ENOSTRIL SCH (14:00)
[2022-06-25 16:30] VITALS: BP 160/62
[2022-06-25] MEDS ORDERED: SNACK - Diabetic Appropriate PO SCH ×2 (20:00)
[2022-06-25] MEDS ORDERED: SINGULAIR TAB 10 MG PO SCH (21:00)
--- NOTE | 2022-06-26 06:41 | RAD ---
HISTORYCoughSTUDYChest PA and lateral viewsCOMPARISONSeptember 2021FINDINGSStable upper-normal heart size with no evidence for developing pulmonary or pleural lesion. Images are limited by low lung volumes and incomplete inspiration. Large air containing hiatal hernia again noted.IMPRESSIONHiatal hernia. No acute chest disease demonstrated although exam is limited by incomplete inspiration and low pulmonary volumes.Electronically signed by: JUANA CARBAJAL (Jun 26, 2022 06:40:16)
== END 2022-06-25 16:40 ==
LOC: MED/SURG 10:48 → RAD 10:48
PROVIDERS: ADMIT Family Medicine; ATTEND Obstetrics & Gynecology Obstetrics
DX: K44.9 Diaphragmatic hernia without obstruction or gangrene; J20.8 Acute bronchitis due to other specified organisms; J30.89 Other allergic rhinitis; R06.02 Shortness of breath; Z66 Do not resuscitate; R25.8 Other abnormal involuntary movements; E11.65 Type 2 diabetes mellitus with hyperglycemia; I25.10 Atherosclerotic heart disease of native coronary artery without angina pectoris

== ENCOUNTER 2023-06-10 12:17 | Inpatient (IN) ==
--- NOTE | 2023-06-10 12:22 | DR.URINEF ---
HPI Time Seen Time Seen by Provider: 06/10/23 12:26 Complaint Chief Complaint Doctors Comments: 87 y/o female sent over from the NH for evaluation. Staff reports coughing today, having decreased PO intake, decreased urinary ouput. PT somnolent, unable to offer complaints. Reviewed Nurses Notes Reviewed: Yes Source History Provided: Jail Mode of Arrival Mode of Arrival: Stretcher PMH PMH Past Medical History: Anemia, Arthritis, COPD, Dementia, Depression, Diabetes, G ERD, Hypertension and Sleep Apnea Past Surgical History: Yes Surgical History: Ortho Surgery Family History Family Medical History: Diabetes Mellitus, Coronary Artery Disease, Heart Failure and Hypertension Social History Do you use any recreational Drugs:: No ROS Review of Systems Unable to Obtain Due To: Altered mental status PE Vital Signs Vitals: Vital Signs Temperature 99.3 F Pulse Rate 76 Pulse Rate 80 Pulse Rate 83 Pulse Rate 83 Pulse Rate 82 Pulse Rate 84 Pulse Rate 84 Pulse Rate 83 Respiratory Rate 17 Respiratory Rate 19 Respiratory Rate 19 Respiratory Rate 21 Respiratory Rate 21 Respiratory Rate 18 Respiratory Rate 21 Respiratory Rate 20 Blood Pressure 108/53 Blood Pressure 126/60 Blood Pressure 118/55 Blood Pressure 124/59 Blood Pressure 124/59 O2 Sat by Pulse Oximetry 94 O2 Sat by Pulse Oximetry 97 O2 Sat by Pulse Oximetry 95 O2 Sat by Pulse Oximetry 97 O2 Sat by Pulse Oximetry 96 O2 Sat by Pulse Oximetry 97 General General Appearance: Alert and In No Apparent Distress Eyes Eye exam: PERRL and EOMI ENT ENT Exam: Mucous Membranes Dry Respiratory Respiratory Exam: Normal Lung Sounds Bilat; negative Accessory Muscle Use or Respiratory Distress Cardiovascular Cardiovascular Exam: Regular Rate, Normal Rhythm and Normal Heart Sounds Abdominal Exam Abdominal Exam: Normal Bowel Sounds and Soft; negative Tenderness Extremities Extremities Exam: Other (+ contractures of bilateral lower exts, no obvious edema.) Skin Skin Exam: Warm and Dry COURSE Treatment Treatment: 87 y/o [place] pt with decreased po intake, decreased urination, decreased alertness. W/u intiated. Dowling placed - 1200 mls out, then clamped. U/A with TNTC WBCs/RBCs, c/w UTI. Pt treated for UTI beginning of this month. Will treat for complicated UTI. Discussed with Dr Mckeon, will admit. Will treat with IV rocephin, IV fluids. ROR Labs Reviewed Laboratory Results Reviewed?: Yes 06/10/23 12:45 06/10/23 12:45 Laboratory: WBC 11.3 X10^3/uL (3.6-10.0) H 06/10/23 12:45 RBC 4.40 X10^6/uL (3.5-5.4) 06/10/23 12:45 Hgb 11.8 g/dL (12.0-16.0) L 06/10/23 12:45 Hct 36.1 % (36.0-47.0) 06/10/23 12:45 MCV 82.0 fL (80.0-100.0) 06/10/23 12:45 MCH 26.9 pg (27.0-34.0) L 06/10/23 12:45 MCHC 32.8 g/dL (33.0-35.0) L 06/10/23 12:45 RDW 15.4 % (11.6-16.5) 06/10/23 12:45 Plt Count 316 X10^3/uL (150.0-450.0) 06/10/23 12:45 MPV 7.8 fL (7.4-11.0) 06/10/23 12:45 Neut % (Auto) 75.7 % (42.0-75.0) H 06/10/23 12:45 Lymph % (Auto) 14.9 % (21.0-51.0) L 06/10/23 12:45 [place] % (Auto) 6.5 % (0.0-13.0) 06/10/23 12:45 Eos % (Auto) 2.3 % (0.9-2.9) 06/10/23 12:45 Baso % (Auto) 0.6 % (0.2-1.0) 06/10/23 12:45 Neut # (Auto) 8.5 x10^3/uL (2.2-4.8) H 06/10/23 12:45 Lymph # (Auto) 1.7 X10^3/uL (1.3-2.9) 06/10/23 12:45 [place] # (Auto) 0.7 x10^3/uL (0.3-0.8) 06/10/23 12:45 Eos # (Auto) 0.3 x10^3/uL (0.0-0.2) H 06/10/23 12:45 Baso # (Auto) 0.1 X10^3/uL (0.0-0.1) 06/10/23 12:45 Absolute Nucleated RBC 0.0 /100WBC 06/10/23 12:45 Sodium 138 mmol/L (136-145) 06/10/23 12:45 Corrected Sodium 140 mmol/L (136-145) 06/10/23 12:45 Potassium 3.8 mmol/L (3.5-5.1) 06/10/23 12:45 Chloride 102 mmol/L (98-107) 06/10/23 12:45 Carbon Dioxide 30.5 mmol/L (21-32) 06/10/23 12:45 BUN 9 mg/dL (7-18) 06/10/23 12:45 Creatinine 0.56 mg/dL (0.55-1.02) 06/10/23 12:45 Est GFR (MDRD) Af Amer > 60 (>60) 06/10/23 12:45 Est GFR (MDRD) Non-Af > 60 (>60) 06/10/23 12:45 Glucose 166 mg/dL (65-99) H 06/10/23 12:45 Calcium 8.3 mg/dL (8.5-10.1) L 06/10/23 12:45 Corrected Calcium 9.5 mg/dL (8.5-10.1) 06/10/23 12:45 Total Bilirubin 0.30 mg/dL (0.2-1.0) 06/10/23 12:45 AST 18 Units/L (15-37) 06/10/23 12:45 ALT 16 Units/L (12-78) 06/10/23 12:45 Alkaline Phosphatase 101 Units/L (46-116) 06/10/23 12:45 Total Protein 7.7 g/dL (6.4-8.2) 06/10/23 12:45 Albumin 2.5 g/dL (3.4-5.0) L 06/10/23 12:45 Globulin 5.2 g/dL (2.5-4.5) H 06/10/23 12:45 Albumin/Globulin Ratio 0.5 Ratio (1.1-2.1) L 06/10/23 12:45 Lipase 48 Units/L (73-393) L 06/10/23 12:45 Specimen Type Catherized urine 06/10/23 12:54 Urine Color Yellow (YELLOW) 06/10/23 12:54 Urine Appearance Turbid (CLEAR) 06/10/23 12:54 Urine pH 6.0 (5.0 - 8.0) 06/10/23 12:54 Ur Specific [place] 1.025 (1.000-1.030) 06/10/23 12:54 Urine Protein 2+ (NEGATIVE) 06/10/23 12:54 Urine Glucose (UA) Negative (NEGATIVE) 06/10/23 12:54 Urine Ketones Negative (NEGATIVE) 06/10/23 12:54 Urine Blood 4+ (NEGATIVE) 06/10/23 12:54 Urine Nitrite Negative (NEGATIVE) 06/10/23 12:54 Urine Bilirubin Negative (NEGATIVE) 06/10/23 12:54 Urine Urobilinogen Normal (NORMAL) 06/10/23 12:54 Ur Leukocyte Esterase 3+ (NEGATIVE) 06/10/23 12:54 Urine RBC Tntc /HPF (0-3) A 06/10/23 12:54 Urine WBC Tntc /HPF (0-5) A 06/10/23 12:54 Ur Squamous Epith Cells Rare /HPF (NEGATIVE) 06/10/23 12:54 Urine Bacteria 1+ /HPF (NEGATIVE) 06/10/23 12:54 Ur Culture Indicated? Yes/culture set up 06/10/23 12:54 SARS CoV-2 RNA Rapid SHANIKA Negative (NEGATIVE) 06/10/23 12:58 XRAY XRAY Interpreted by: Both X-ray Results: No acute abnormalities Opioid Opioid Risk Tool Age (Koby box if 16-45): No History of Preadolescent Sexual Abuse: No Total: 0 Total Score Risk Category: Low Risk Copyright: Percy MOLINA predicting aberrant behaviors Discharge Plan Diagnosis Discharge Problem: Complicated urinary tract infection Discharge Plan Patient Disposition: ADMITTED INPATIENT Condition: Stable
[2023-06-10] MEDS ORDERED: NS 500 ML IV 500 ML IV ONE ×2 (12:27→12:29)
[2023-06-10 13:00] LABS: BASOPHILS # (AUTO) 0.1 X10^3/uL (0.0-0.1); BASOPHILS % (AUTO) 0.6 % (0.2-1.0); EOSINOPHILS # (AUTO) 0.3 x10^3/uL (0.0-0.2); EOSINOPHILS % (AUTO) 2.3 % (0.9-2.9); HEMATOCRIT 36.1 % (36.0-47.0); HEMOGLOBIN 11.8 g/dL (12.0-16.0); LYMPHOCYTES # (AUTO) 1.7 X10^3/uL (1.3-2.9); LYMPHOCYTES % (AUTO) 14.9 % (21.0-51.0); MEAN CORPUSCULAR HEMOGLOBIN 26.9 pg (27.0-34.0); MEAN CORPUSCULAR HGB CONC 32.8 g/dL (33.0-35.0); MEAN PLATELET VOLUME 7.8 fL (7.4-11.0); MONOCYTES # (AUTO) 0.7 x10^3/uL (0.3-0.8); MONOCYTES % (AUTO) 6.5 % (0.0-13.0); NEUTROPHILS # (AUTO) 8.5 x10^3/uL (2.2-4.8); NEUTROPHILS % (AUTO) 75.7 % (42.0-75.0); PLATELET COUNT 316 X10^3/uL (150.0-450.0); RED CELL DISTRIBUTION WIDTH 15.4 % (11.6-16.5); WHITE BLOOD COUNT 11.3 X10^3/uL (3.6-10.0)
[2023-06-10 13:07] LABS: ALANINE AMINOTRANSFERASE 16 Units/L (12-78); ALBUMIN 2.5 g/dL (3.4-5.0); ALKALINE PHOSPHATASE 101 Units/L (46-116); BLOOD UREA NITROGEN 9 mg/dL (7-18); CALCIUM 8.3 mg/dL (8.5-10.1); CARBON DIOXIDE 30.5 mmol/L (21-32); COR CA(FOR HYPOALB) 9.5 mg/dL (8.5-10.1); CREATININE 0.56 mg/dL (0.55-1.02); GLUCOSE 166 mg/dL (65-99); LIPASE 48 Units/L (73-393); TOTAL PROTEIN 7.7 g/dL (6.4-8.2); eGFR NON BLACK RACES > 60 (>60)
[2023-06-10 13:14] LABS: CHLORIDE 102 mmol/L (98-107); COR NA(FOR HYPERGLY) 140 mmol/L (136-145); POTASSIUM 3.8 mmol/L (3.5-5.1); SODIUM 138 mmol/L (136-145)
[2023-06-10 13:22] LABS: APPEARANCE,URINE TURBID (CLEAR); COLOR,URINE YELLOW (YELLOW)
[2023-06-10 13:23] LABS: ASPARTATE AMINO TRANSFERASE 18 Units/L (15-37)
[2023-06-10 13:23] LABS: BILIRUBIN,URINE NEGATIVE (NEGATIVE); BLOOD/HEMOGLOBIN,URINE 4+ (NEGATIVE); GLUCOSE, URINE NEGATIVE (NEGATIVE); KETONES,URINE NEGATIVE (NEGATIVE); LEUKOCYTE ESTERASE ,URINE 3+ (NEGATIVE); NITRITES,URINE NEGATIVE (NEGATIVE); PROTEIN,URINE 2+ (NEGATIVE); UROBILINOGEN,URINE NORMAL (NORMAL)
[2023-06-10 13:24] LABS: BACTERIA,URINE 1+ /HPF (NEGATIVE); RBC,URINE TNTC /HPF (0-3); SQUAMOUS EPITHELIAL CELL,UR RARE /HPF (NEGATIVE)
--- NOTE | 2023-06-10 13:39 | RAD ---
HISTORYShortness of breathSTUDYChest AP [id number]/25/2023FINDINGSHear t size is normal. Marilyn are normal. Lungs are free of acute alveolar infiltrates. Interstitial lung changes are present bilaterally, stable. No pleural effusions or pneumothoraces identified. Bony thorax unremarkable with the exception of bilateral glenohumeral joint degenerative joint disease.IMPRESSIONNo acute alveolar infiltrates or areas of consolidationMild bilateral chronic interstitial lung changesElectronically signed by: BENSON SUAREZ (Jun 10, 2023 13:37:35)
[2023-06-10] MEDS ORDERED: ROCEPHIN VIAL 1 GRAM ONE (13:43)
[2023-06-10] MEDS ORDERED: ROCEPHIN VIAL 1 GRAM IVP STA (13:44)
[2023-06-10] MEDS: ROCEPHIN VIAL 1 GRAM 1 G in NS 100 ML IV 100 ML IV SCH (16:15)
[2023-06-10] MEDS: DUONEB 0.5 MG/3 MG (3 mL) NEB SCH ×2 (16:25→20:45)
[2023-06-10] MEDS ORDERED: D5 1/2 NS 1,000 ML 1,000 ML IV SCH (21:00)
[2023-06-10] MEDS: NovoLIN R (or HumuLIN R) SUBCUT PRN (21:23)
[2023-06-11 06:27] LABS: BASOPHILS # (AUTO) 0.1 X10^3/uL (0.0-0.1); BASOPHILS % (AUTO) 1.2 % (0.2-1.0); EOSINOPHILS # (AUTO) 0.4 x10^3/uL (0.0-0.2); EOSINOPHILS % (AUTO) 5.4 % (0.9-2.9); HEMATOCRIT 34.3 % (36.0-47.0); HEMOGLOBIN 11.3 g/dL (12.0-16.0); LYMPHOCYTES # (AUTO) 1.5 X10^3/uL (1.3-2.9); LYMPHOCYTES % (AUTO) 19.9 % (21.0-51.0); MEAN CORPUSCULAR HEMOGLOBIN 27.1 pg (27.0-34.0); MEAN CORPUSCULAR HGB CONC 33.1 g/dL (33.0-35.0); MEAN CORPUSCULAR VOLUME 81.9 fL (80.0-100.0); MONOCYTES # (AUTO) 0.7 x10^3/uL (0.3-0.8); MONOCYTES % (AUTO) 8.7 % (0.0-13.0); NEUTROPHILS % (AUTO) 64.8 % (42.0-75.0); PLATELET COUNT 312 X10^3/uL (150.0-450.0); RED BLOOD COUNT 4.18 X10^6/uL (3.5-5.4); RED CELL DISTRIBUTION WIDTH 15.6 % (11.6-16.5); WHITE BLOOD COUNT 7.7 X10^3/uL (3.6-10.0)
[2023-06-11 06:40] LABS: ALANINE AMINOTRANSFERASE 14 Units/L (12-78); ALBUMIN 2.4 g/dL (3.4-5.0); ALKALINE PHOSPHATASE 93 Units/L (46-116); ASPARTATE AMINO TRANSFERASE 13 Units/L (15-37); BLOOD UREA NITROGEN 9 mg/dL (7-18); CALCIUM 8.1 mg/dL (8.5-10.1); CARBON DIOXIDE 28.3 mmol/L (21-32); CHLORIDE 102 mmol/L (98-107); COR CA(FOR HYPOALB) 9.4 mg/dL (8.5-10.1); COR NA(FOR HYPERGLY) 139 mmol/L (136-145); CREATININE 0.61 mg/dL (0.55-1.02); GLUCOSE 155 mg/dL (65-99); MAGNESIUM 1.7 mg/dL (2.0-2.9); POTASSIUM 3.5 mmol/L (3.5-5.1); SODIUM 138 mmol/L (136-145); TOTAL PROTEIN 7.1 g/dL (6.4-8.2); eGFR NON BLACK RACES > 60 (>60)
[2023-06-11] MEDS: ROCEPHIN VIAL 1 GRAM 1 G in NS 100 ML IV 100 ML IV SCH (08:34)
[2023-06-11] MEDS: D5 1/2 NS + KCL 20 MEQ/L 1,000 ML with MAGNESIUM SULFATE 50% INJ VIAL 1 G IV SCH ×4 (08:43→21:40)
[2023-06-11] MEDS: DUONEB 0.5 MG/3 MG (3 mL) NEB SCH ×4 (09:02→20:05)
[2023-06-11 12:49] VITALS: BMI 26.8
[2023-06-11] MEDS: LOVENOX INJ 40 MG SYR SC SCH (13:38)
[2023-06-11] MEDS ORDERED: PHARMACY CONSULT LTC MEDICATIONS XX SCH (14:00)
[2023-06-11] MEDS ORDERED: VOLTAREN 1 % GEL MULTI DOSE TUBE TOP PRN (15:38)
[2023-06-11] MEDS ORDERED: XYLOCAINE OINT 5% TOP PRN (15:44)
[2023-06-11] MEDS ORDERED: TUSSIONEX PENNKINETIC SUSP PO PRN (15:55)
[2023-06-11] MEDS ORDERED: ASTELIN NASAL SPRAY ENOSTRIL ONE (16:45)
[2023-06-11] MEDS: CLARITIN PO SCH (16:54)
[2023-06-11] MEDS: ASTELIN NASAL SPRAY ENOSTRIL SCH ×2 (16:54→21:41)
[2023-06-11] MEDS: ROBITUSSIN DM PO SCH ×2 (16:54→20:35)
[2023-06-11] MEDS: NORVASC TAB 10 MG PO SCH (16:54)
[2023-06-11] MEDS: REGLAN TAB 10 MG PO SCH ×2 (16:54→20:35)
[2023-06-11] MEDS: SINGULAIR TAB 10 MG PO SCH (16:54)
[2023-06-11] MEDS: TESSALON PERLES PO SCH ×2 (16:54→21:41)
[2023-06-11] MEDS: ZADITOR EYE DROPS EACHEYE SCH ×2 (16:56→21:42)
[2023-06-11] MEDS: NovoLIN R (or HumuLIN R) SUBCUT PRN (17:31)
[2023-06-11] MEDS: ROXICODONE TAB 5 MG PO PRN (19:07)
[2023-06-11] MEDS: PROTONIX TAB 40 MG PO SCH (20:36)
[2023-06-11] MEDS: MYSOLINE PO SCH (20:36)
[2023-06-11] MEDS: COLACE CAP 100 MG PO SCH (20:36)
[2023-06-11] MEDS: NEURONTIN CAP 300 MG PO SCH (20:36)
[2023-06-11] MEDS: SNACK - Diabetic Appropriate PO SCH (21:00)
--- NOTE | 2023-06-11 21:26 | DR.H&P ---
H&P History & Physical for Day of: H&P Date: 06/11/23 Chief Complaint Chief Complaint: Cough, Decrease food intake Decrease urinary output, Fatigue Allergies Allergies Allergy/AdvReac Type Severity Reaction Status Date / Time Sulfa (Sulfonamide Allergy Unknown Verified 06/10/23 13:35 Antibiotics) History of Present Illness History of Present Illness: Pt is a 87 year old female past medical history of COPD, Hypertension, DMT2, Dementia, presenting from [facility] with cough, decrease food intake, and decrease urinary output. Labs/imaging: Wbc 11.3>7.7, Hgb 11.3, Plt 312, Na 138, K 3.5, Creatinine 0.61, Glucose 155, UA consistent with infection, Urine culture pending CXR was obtained that revealed no acute cardiopulmonary findings. AIT respiratory panel pending. Pt admitted for acute cystitis and dehydration. Plan: admit for IV hydration and antibiotics. Dowling was placed. Start IV Rocephin. Resume home medications. Follow pending AIT and urine Cx. Monitor AM labs/imaging. Past Medical History Past Medical History: Anemia, Arthritis, COPD, Dementia, Depression, Diabetes, GERD, Hypertension and Sleep Apnea Past Surgical History Surgical History: Ortho Surgery Family History Family Medical History: Diabetes Mellitus, Coronary Artery Disease, Heart Failure and Hypertension Social History Alcohol Use: None Drug Use: None Medications Home Medications: Home Medications Medication Instructions Recorded Confirmed Type amlodipine 10 mg tablet (Norvasc) 10 mg PO DAILY 02/16/20 06/10/23 History epoetin lulu 10,000 unit/mL 10,000 unit subcut QMONTH 02/16/20 06/10/23 History injection solution (Epogen) gabapentin 300 mg capsule 300 mg PO BID 02/16/20 06/10/23 History sertraline 50 mg tablet 100 mg PO DAILY 02/16/20 06/10/23 History azelastine 137 mcg (0.1 %) nasal 1 spray intranasal TID 04/19/20 06/10/23 History spray aerosol amino acids-protein hydrolysate 30 ea PO BID 09/27/20 06/10/23 History 11.3 gram-86 kcal/30 mL oral liquid insulin regular human 100 unit/mL See Rx Instructions .Route .COMPLEX 06/16/22 06/10/23 History injection solution (Novolin R Regular U-100 Insulin) pantoprazole 40 mg tablet,delayed 40 mg PO BID 06/16/22 06/10/23 History release lidocaine 5 % topical cream 1 applic topical Q6H PRN 06/25/22 06/10/23 History loratadine 10 mg tablet (Claritin) 10 mg PO DAILY 08/29/22 06/10/23 History montelukast 10 mg tablet 10 mg PO DAILY 08/29/22 06/10/23 History metoclopramide HCl 10 mg tablet 10 mg PO ACHS 12/19/22 06/10/23 History benzonatate 100 mg capsule 100 mg PO TID 06/10/23 06/10/23 History cefpodoxime 200 mg tablet 200 mg PO BID 06/10/23 06/10/23 History codeine 10 mg-guaifenesin 100 mg/5 10 ml PO Q6H PRN Cough 06/10/23 06/10/23 History mL oral liquid diclofenac sodium 1 % topical gel 1 ea topical Q8H PRN Pain 06/10/23 06/10/23 History docusate sodium 100 mg capsule 200 mg PO HS 06/10/23 06/10/23 History (Colace) ipratropium 0.5 mg-albuterol 3 mg 3 ml inhalation QID 06/10/23 06/10/23 History (2.5 mg base)/3 mL nebulization soln ketotifen fumarate 0.025 % (0.035 1 drp ophthalmic (eye) BID 06/10/23 06/10/23 History %) eye drops levalbuterol HCl 1.25 mg/3 mL 1.25 mg inhalation Q6H PRN Cough 06/10/23 06/10/23 History solution for nebulization primidone 50 mg tablet 50 mg PO BID 06/10/23 06/10/23 History Labs 06/11/23 05:39 06/11/23 05:39 Labs: 06/10/23 12:54 Urine,Catheterized Urine Culture - Preliminary Laboratory WBC 7.7 X10^3/uL (3.6-10.0) 06/11/23 05:39 RBC 4.18 X10^6/uL (3.5-5.4) 06/11/23 05:39 Hgb 11.3 g/dL (12.0-16.0) L 06/11/23 05:39 Hct 34.3 % (36.0-47.0) L 06/11/23 05:39 MCV 81.9 fL (80.0-100.0) 06/11/23 05:39 MCH 27.1 pg (27.0-34.0) 06/11/23 05:39 MCHC 33.1 g/dL (33.0-35.0) 06/11/23 05:39 RDW 15.6 % (11.6-16.5) 06/11/23 05:39 Plt Count 312 X10^3/uL (150.0-450.0) 06/11/23 05:39 MPV 8.0 fL (7.4-11.0) 06/11/23 05:39 Neut % (Auto) 64.8 % (42.0-75.0) 06/11/23 05:39 Lymph % (Auto) 19.9 % (21.0-51.0) L 06/11/23 05:39 [place] % (Auto) 8.7 % (0.0-13.0) 06/11/23 05:39 Eos % (Auto) 5.4 % (0.9-2.9) H 06/11/23 05:39 Baso % (Auto) 1.2 % (0.2-1.0) H 06/11/23 05:39 Neut # (Auto) 5.0 x10^3/uL (2.2-4.8) H 06/11/23 05:39 Lymph # (Auto) 1.5 X10^3/uL (1.3-2.9) 06/11/23 05:39 [place] # (Auto) 0.7 x10^3/uL (0.3-0.8) 06/11/23 05:39 Eos # (Auto) 0.4 x10^3/uL (0.0-0.2) H 06/11/23 05:39 Baso # (Auto) 0.1 X10^3/uL (0.0-0.1) 06/11/23 05:39 Absolute Nucleated RBC 0.0 /100WBC 06/11/23 05:39 Sodium 138 mmol/L (136-145) 06/11/23 05:39 Corrected Sodium 139 mmol/L (136-145) 06/11/23 05:39 Potassium 3.5 mmol/L (3.5-5.1) 06/11/23 05:39 Chloride 102 mmol/L (98-107) 06/11/23 05:39 Carbon Dioxide 28.3 mmol/L (21-32) 06/11/23 05:39 BUN 9 mg/dL (7-18) 06/11/23 05:39 Creatinine 0.61 mg/dL (0.55-1.02) 06/11/23 05:39 Est GFR (MDRD) Af Amer > 60 (>60) 06/11/23 05:39 Est GFR (MDRD) Non-Af > 60 (>60) 06/11/23 05:39 Glucose 155 mg/dL (65-99) H 06/11/23 05:39 POC Glucose (mg/dL) 151 mg/dL (65-99) H 06/11/23 05:40 Calcium 8.1 mg/dL (8.5-10.1) L 06/11/23 05:39 Corrected Calcium 9.4 mg/dL (8.5-10.1) 06/11/23 05:39 Magnesium 1.7 mg/dL (2.0-2.9) L 06/11/23 05:39 Total Bilirubin 0.20 mg/dL (0.2-1.0) 06/11/23 05:39 AST 13 Units/L (15-37) L 06/11/23 05:39 ALT 14 Units/L (12-78) 06/11/23 05:39 Alkaline Phosphatase 93 Units/L (46-116) 06/11/23 05:39 Total Protein 7.1 g/dL (6.4-8.2) 06/11/23 05:39 Albumin 2.4 g/dL (3.4-5.0) L 06/11/23 05:39 Globulin 4.7 g/dL (2.5-4.5) H 06/11/23 05:39 Albumin/Globulin Ratio 0.5 Ratio (1.1-2.1) L 06/11/23 05:39 Lipase 48 Units/L (73-393) L 06/10/23 12:45 Specimen Type Catherized urine 06/10/23 12:54 Urine Color Yellow (YELLOW) 06/10/23 12:54 Urine Appearance Turbid (CLEAR) 06/10/23 12:54 Urine pH 6.0 (5.0 - 8.0) 06/10/23 12:54 Ur Specific [place] 1.025 (1.000-1.030) 06/10/23 12:54 Urine Protein 2+ (NEGATIVE) 06/10/23 12:54 Urine Glucose (UA) Negative (NEGATIVE) 06/10/23 12:54 Urine Ketones Negative (NEGATIVE) 06/10/23 12:54 Urine Blood 4+ (NEGATIVE) 06/10/23 12:54 Urine Nitrite Negative (NEGATIVE) 06/10/23 12:54 Urine Bilirubin Negative (NEGATIVE) 06/10/23 12:54 Urine Urobilinogen Normal (NORMAL) 06/10/23 12:54 Ur Leukocyte Esterase 3+ (NEGATIVE) 06/10/23 12:54 Urine RBC Tntc /HPF (0-3) A 06/10/23 12:54 Urine WBC Tntc /HPF (0-5) A 06/10/23 12:54 Ur Squamous Epith Cells Rare /HPF (NEGATIVE) 06/10/23 12:54 Urine Bacteria 1+ /HPF (NEGATIVE) 06/10/23 12:54 Ur Culture Indicated? Yes/culture set up 06/10/23 12:54 SARS CoV-2 RNA Rapid SHANIKA Negative (NEGATIVE) 06/10/23 12:58 Review of Systems Constitutional: No Symptoms Reported Eyes: No Symptoms Reported ENT: No Symptoms Reported Respiratory: No Symptoms Reported Cardiovascular: No Symptoms Reported Gastrointestinal: No Symptoms Reported Genitourinary: Dysuria Musculoskeletal: No Symptoms Reported Skin: No Symptoms Reported Neurological: No Symptoms Reported Physical Exam Vital Signs: Vital Signs Temperature 98.2 F Pulse Rate [Left Brachial] 71 Respiratory Rate 20 Blood Pressure [Left Arm] 154/72 O2 Sat by Pulse Oximetry 100 Oriented: Normal Eyes: Normal Ear: Normal Nose: Normal Throat: Normal Respiratory: Clear Throughout Cardiovascular: Normal : Normal Auscultation: Bowel Sounds: Normal Palpation: Normal Tenderness: Normal Skin: Normal Musculoskeletal: Normal Psychiatric: Normal Mood Description: Calm and Appropriate Affect: Normal Speech Pattern: Clear and Appropriate Assessment/Plan (1) Acute cystitis: Status: Acute Plan: Continue IV Rocephin Urine culture pending (2) Dehydration: Status: Acute Plan: Continue IVF Review H&P Reviewed: Yes Patient was examined?: Yes
[2023-06-12] MEDS: D5 1/2 NS + KCL 20 MEQ/L 1,000 ML with MAGNESIUM SULFATE 50% INJ VIAL 1 G IV SCH ×6 (03:54→21:24)
[2023-06-12 05:28] LABS: BASOPHILS # (AUTO) 0.1 X10^3/uL (0.0-0.1); BASOPHILS % (AUTO) 0.9 % (0.2-1.0); EOSINOPHILS # (AUTO) 0.4 x10^3/uL (0.0-0.2); EOSINOPHILS % (AUTO) 5.3 % (0.9-2.9); HEMATOCRIT 32.2 % (36.0-47.0); HEMOGLOBIN 10.7 g/dL (12.0-16.0); LYMPHOCYTES # (AUTO) 1.5 X10^3/uL (1.3-2.9); LYMPHOCYTES % (AUTO) 20.2 % (21.0-51.0); MEAN CORPUSCULAR HGB CONC 33.1 g/dL (33.0-35.0); MEAN CORPUSCULAR VOLUME 81.4 fL (80.0-100.0); MEAN PLATELET VOLUME 7.9 fL (7.4-11.0); MONOCYTES # (AUTO) 0.7 x10^3/uL (0.3-0.8); MONOCYTES % (AUTO) 9.7 % (0.0-13.0); NEUTROPHILS # (AUTO) 4.8 x10^3/uL (2.2-4.8); NEUTROPHILS % (AUTO) 63.9 % (42.0-75.0); PLATELET COUNT 276 X10^3/uL (150.0-450.0); RED BLOOD COUNT 3.96 X10^6/uL (3.5-5.4); WHITE BLOOD COUNT 7.6 X10^3/uL (3.6-10.0)
[2023-06-12] MEDS: ASTELIN NASAL SPRAY ENOSTRIL SCH ×3 (05:33→21:24)
[2023-06-12 05:43] LABS: ALANINE AMINOTRANSFERASE 8 Units/L (12-78); ALKALINE PHOSPHATASE 85 Units/L (46-116); ASPARTATE AMINO TRANSFERASE 15 Units/L (15-37); BLOOD UREA NITROGEN 5 mg/dL (7-18); CALCIUM 7.7 mg/dL (8.5-10.1); CARBON DIOXIDE 28.5 mmol/L (21-32); CHLORIDE 104 mmol/L (98-107); COR CA(FOR HYPOALB) 9.3 mg/dL (8.5-10.1); COR NA(FOR HYPERGLY) 140 mmol/L (136-145); CREATININE 0.59 mg/dL (0.55-1.02); GLUCOSE 181 mg/dL (65-99); MAGNESIUM 1.8 mg/dL (2.0-2.9); POTASSIUM 3.6 mmol/L (3.5-5.1); SODIUM 138 mmol/L (136-145); TOTAL PROTEIN 6.3 g/dL (6.4-8.2); eGFR NON BLACK RACES > 60 (>60)
[2023-06-12] MEDS: TESSALON PERLES PO SCH ×3 (05:45→21:24)
[2023-06-12] MEDS: REGLAN TAB 10 MG PO SCH ×4 (05:45→20:14)
[2023-06-12] MEDS ORDERED: CONSULT PHARMACY - POTASSIUM & MAGNESIUM XX SCH ×2 (07:00)
[2023-06-12] MEDS: NORVASC TAB 10 MG PO SCH (08:20)
[2023-06-12] MEDS: MYSOLINE PO SCH ×2 (08:20→20:14)
[2023-06-12] MEDS: CLARITIN PO SCH (08:20)
[2023-06-12] MEDS: PROTONIX TAB 40 MG PO SCH ×2 (08:20→20:14)
[2023-06-12] MEDS: SINGULAIR TAB 10 MG PO SCH (08:20)
[2023-06-12] MEDS: LOVENOX INJ 40 MG SYR SC SCH (08:20)
[2023-06-12] MEDS: ROCEPHIN VIAL 1 GRAM 1 G in NS 100 ML IV 100 ML IV SCH (08:21)
[2023-06-12] MEDS: ROBITUSSIN DM PO SCH ×4 (08:21→21:24)
[2023-06-12] MEDS: ZOLOFT PO SCH (08:21)
[2023-06-12] MEDS: NEURONTIN CAP 300 MG PO SCH ×2 (08:21→20:14)
[2023-06-12] MEDS: MAG-OX TAB PO SCH ×2 (08:21→11:53)
[2023-06-12] MEDS: ZADITOR EYE DROPS EACHEYE SCH ×2 (08:22→21:24)
[2023-06-12] MEDS: DUONEB 0.5 MG/3 MG (3 mL) NEB SCH ×4 (08:58→20:22)
[2023-06-12] MEDS ORDERED: K-DUR TAB 20 MEQ PO SCH (09:00)
[2023-06-12] MEDS: VANCOMYCIN IV *PREMIX 1 G/200 ML BAG 1 G/200 ML PIGGYBACK IV SCH ×2 (11:53→20:14)
[2023-06-12] MEDS: NovoLIN R (or HumuLIN R) SUBCUT PRN ×2 (15:58→21:06)
[2023-06-12] MEDS: ROXICODONE TAB 5 MG PO PRN (17:58)
[2023-06-12] MEDS: COLACE CAP 100 MG PO SCH (20:14)
[2023-06-12] MEDS: SNACK - Diabetic Appropriate PO SCH (21:00)
--- NOTE | 2023-06-12 21:51 | PCM.PROG ---
Progress Note Progress Note for Day of Date of Exam: 06/12/23 Subjective Subjective: Pt is a 87 year old female past medical history of COPD, Hypertension, DMT2, Dementia, admitted for acute cystitis and pneumonia. Labs/imaging: Wbc 7.6, Hgb 10.7, Plt 276, Na 138, K 3.6, Creatinine 0.59, Glucose 181, UA consistent with infection, Urine culture no growth to date. AIT respiratory panel positive for MRSA. Plan: Continue with IV hydration and antibiotics. Dowling was placed. Will add on IV vancomycin based on sputum cultures and continue IV Rocephin. Home medicati ons have been resumed. Otherwise, continue with current treatment plan. Continue to monitor and follow up AM labs/imaging. Past Medical Family Social History Allergies: Allergies Sulfa (Sulfonamide Antibiotics) Allergy (Unknown, Verified 06/10/23 13:35) per [facility] Review of Systems ROS changes noted: See HPI Vital Signs and I&O's Vital Signs: Vital Signs Temperature 100.2 F Temperature 100.3 F Pulse Rate [Left Brachial] 96 Pulse Rate [Left Brachial] 87 Pulse Rate 96 Respiratory Rate 20 Respiratory Rate 20 Respiratory Rate 20 Blood Pressure [Left Arm] 158/97 Blood Pressure [Left Arm] 150/74 O2 Sat by Pulse Oximetry 96 O2 Sat by Pulse Oximetry 98 O2 Sat by Pulse Oximetry 100 Intake and Output: Intake & Output 06/09/23 06/10/23 06/11/23 06/12/23 23:59 23:59 23:59 23:59 Intake Total 0 / 0 2069 / 2069 2186 / 2186 Output Total 950 / 950 1700 / 1700 1750 / 1750 Balance -950 / -950 369 / 369 436 / 436 Physical Exam Oriented: Normal Eyes: Normal Ear: Normal Nose: Normal Throat: Normal Respiratory: Diminished Cardiovascular: Normal : Normal Auscultation: Bowel Sounds: Normal Tenderness: Normal Skin: Normal Musculoskeletal: Normal Psychiatric: Normal Mood Description: Calm and Appropriate Affect: Normal Speech Pattern: Clear and Appropriate Laboratory and Diagnostics 06/12/23 04:54 06/12/23 04:54 Labs: 06/10/23 12:54 Urine,Catheterized Urine Culture - Final Laboratory WBC 7.6 X10^3/uL (3.6-10.0) 06/12/23 04:54 RBC 3.96 X10^6/uL (3.5-5.4) 06/12/23 04:54 Hgb 10.7 g/dL (12.0-16.0) L 06/12/23 04:54 Hct 32.2 % (36.0-47.0) L 06/12/23 04:54 MCV 81.4 fL (80.0-100.0) 06/12/23 04:54 MCH 27.0 pg (27.0-34.0) 06/12/23 04:54 MCHC 33.1 g/dL (33.0-35.0) 06/12/23 04:54 RDW 15.0 % (11.6-16.5) 06/12/23 04:54 Plt Count 276 X10^3/uL (150.0-450.0) 06/12/23 04:54 MPV 7.9 fL (7.4-11.0) 06/12/23 04:54 Neut % (Auto) 63.9 % (42.0-75.0) 06/12/23 04:54 Lymph % (Auto) 20.2 % (21.0-51.0) L 06/12/23 04:54 [place] % (Auto) 9.7 % (0.0-13.0) 06/12/23 04:54 Eos % (Auto) 5.3 % (0.9-2.9) H 06/12/23 04:54 Baso % (Auto) 0.9 % (0.2-1.0) 06/12/23 04:54 Neut # (Auto) 4.8 x10^3/uL (2.2-4.8) 06/12/23 04:54 Lymph # (Auto) 1.5 X10^3/uL (1.3-2.9) 06/12/23 04:54 [place] # (Auto) 0.7 x10^3/uL (0.3-0.8) 06/12/23 04:54 Eos # (Auto) 0.4 x10^3/uL (0.0-0.2) H 06/12/23 04:54 Baso # (Auto) 0.1 X10^3/uL (0.0-0.1) 06/12/23 04:54 Absolute Nucleated RBC 0.0 /100WBC 06/12/23 04:54 Sodium 138 mmol/L (136-145) 06/12/23 04:54 Corrected Sodium 140 mmol/L (136-145) 06/12/23 04:54 Potassium 3.6 mmol/L (3.5-5.1) 06/12/23 04:54 Chloride 104 mmol/L (98-107) 06/12/23 04:54 Carbon Dioxide 28.5 mmol/L (21-32) 06/12/23 04:54 BUN 5 mg/dL (7-18) L 06/12/23 04:54 Creatinine 0.59 mg/dL (0.55-1.02) 06/12/23 04:54 Est GFR (MDRD) Af Amer > 60 (>60) 06/12/23 04:54 Est GFR (MDRD) Non-Af > 60 (>60) 06/12/23 04:54 Glucose 181 mg/dL (65-99) H 06/12/23 04:54 POC Glucose (mg/dL) 208 mg/dL (65-99) H 06/12/23 20:56 Calcium 7.7 mg/dL (8.5-10.1) L 06/12/23 04:54 Corrected Calcium 9.3 mg/dL (8.5-10.1) 06/12/23 04:54 Magnesium 1.8 mg/dL (2.0-2.9) L 06/12/23 04:54 Total Bilirubin 0.20 mg/dL (0.2-1.0) 06/12/23 04:54 AST 15 Units/L (15-37) 06/12/23 04:54 ALT 8 Units/L (12-78) L 06/12/23 04:54 Alkaline Phosphatase 85 Units/L (46-116) 06/12/23 04:54 Total Protein 6.3 g/dL (6.4-8.2) L 06/12/23 04:54 Albumin 2.0 g/dL (3.4-5.0) L 06/12/23 04:54 Globulin 4.3 g/dL (2.5-4.5) 06/12/23 04:54 Albumin/Globulin Ratio 0.5 Ratio (1.1-2.1) L 06/12/23 04:54 Lipase 48 Units/L (73-393) L 06/10/23 12:45 Specimen Type Catherized urine 06/10/23 12:54 Urine Color Yellow (YELLOW) 06/10/23 12:54 Urine Appearance Turbid (CLEAR) 06/10/23 12:54 Urine pH 6.0 (5.0 - 8.0) 06/10/23 12:54 Ur Specific [place] 1.025 (1.000-1.030) 06/10/23 12:54 Urine Protein 2+ (NEGATIVE) 06/10/23 12:54 Urine Glucose (UA) Negative (NEGATIVE) 06/10/23 12:54 Urine Ketones Negative (NEGATIVE) 06/10/23 12:54 Urine Blood 4+ (NEGATIVE) 06/10/23 12:54 Urine Nitrite Negative (NEGATIVE) 06/10/23 12:54 Urine Bilirubin Negative (NEGATIVE) 06/10/23 12:54 Urine Urobilinogen Normal (NORMAL) 06/10/23 12:54 Ur Leukocyte Esterase 3+ (NEGATIVE) 06/10/23 12:54 Urine RBC Tntc /HPF (0-3) A 06/10/23 12:54 Urine WBC Tntc /HPF (0-5) A 06/10/23 12:54 Ur Squamous Epith Cells Rare /HPF (NEGATIVE) 06/10/23 12:54 Urine Bacteria 1+ /HPF (NEGATIVE) 06/10/23 12:54 Ur Culture Indicated? Yes/culture set up 06/10/23 12:54 SARS CoV-2 RNA Rapid SHANIKA Negative (NEGATIVE) 06/10/23 12:58 Plan (1) Acute cystitis: Status: Acute Plan: Continue IV Rocephin Urine culture pending (2) Dehydration: Status: Acute Plan: Continue IVF (3) Pneumonia: Status: Acute
[2023-06-13 04:58] LABS: BASOPHILS # (AUTO) 0.1 X10^3/uL (0.0-0.1); BASOPHILS % (AUTO) 0.7 % (0.2-1.0); EOSINOPHILS # (AUTO) 0.4 x10^3/uL (0.0-0.2); EOSINOPHILS % (AUTO) 5.2 % (0.9-2.9); HEMATOCRIT 36.9 % (36.0-47.0); HEMOGLOBIN 12.2 g/dL (12.0-16.0); LYMPHOCYTES # (AUTO) 1.5 X10^3/uL (1.3-2.9); LYMPHOCYTES % (AUTO) 18.4 % (21.0-51.0); MEAN CORPUSCULAR VOLUME 81.9 fL (80.0-100.0); MEAN PLATELET VOLUME 8.3 fL (7.4-11.0); MONOCYTES # (AUTO) 0.7 x10^3/uL (0.3-0.8); NEUTROPHILS # (AUTO) 5.5 x10^3/uL (2.2-4.8); NEUTROPHILS % (AUTO) 66.7 % (42.0-75.0); PLATELET COUNT 340 X10^3/uL (150.0-450.0); RED BLOOD COUNT 4.51 X10^6/uL (3.5-5.4); RED CELL DISTRIBUTION WIDTH 15.2 % (11.6-16.5); WHITE BLOOD COUNT 8.2 X10^3/uL (3.6-10.0)
[2023-06-13 05:08] LABS: ALANINE AMINOTRANSFERASE 15 Units/L (12-78); ALBUMIN 2.3 g/dL (3.4-5.0); ALKALINE PHOSPHATASE 101 Units/L (46-116); ASPARTATE AMINO TRANSFERASE 19 Units/L (15-37); BLOOD UREA NITROGEN 5 mg/dL (7-18); CALCIUM 8.2 mg/dL (8.5-10.1); CARBON DIOXIDE 27.1 mmol/L (21-32); CHLORIDE 103 mmol/L (98-107); COR CA(FOR HYPOALB) 9.6 mg/dL (8.5-10.1); COR NA(FOR HYPERGLY) 139 mmol/L (136-145); CREATININE 0.58 mg/dL (0.55-1.02); GLUCOSE 132 mg/dL (65-99); MAGNESIUM 1.8 mg/dL (2.0-2.9); POTASSIUM 4.2 mmol/L (3.5-5.1); SODIUM 138 mmol/L (136-145); TOTAL PROTEIN 7.4 g/dL (6.4-8.2); eGFR NON BLACK RACES > 60 (>60)
[2023-06-13] MEDS: REGLAN TAB 10 MG PO SCH ×4 (05:37→21:00)
[2023-06-13] MEDS: ASTELIN NASAL SPRAY ENOSTRIL SCH ×3 (05:37→20:59)
[2023-06-13] MEDS: TESSALON PERLES PO SCH ×3 (05:37→20:59)
[2023-06-13] MEDS ORDERED: CONSULT PHARMACY - POTASSIUM & MAGNESIUM XX SCH (07:00)
[2023-06-13] MEDS: DUONEB 0.5 MG/3 MG (3 mL) NEB SCH ×4 (08:45→20:18)
[2023-06-13] MEDS: ROCEPHIN VIAL 1 GRAM 1 G in NS 100 ML IV 100 ML IV SCH (09:04)
[2023-06-13] MEDS: VANCOMYCIN IV *PREMIX 1 G/200 ML BAG 1 G/200 ML PIGGYBACK IV SCH ×2 (09:05→21:00)
[2023-06-13] MEDS: MAG-OX TAB PO SCH ×2 (09:16→09:36)
[2023-06-13] MEDS: SINGULAIR TAB 10 MG PO SCH (09:17)
[2023-06-13] MEDS: NORVASC TAB 10 MG PO SCH (09:17)
[2023-06-13] MEDS: NEURONTIN CAP 300 MG PO SCH ×2 (09:17→21:01)
[2023-06-13] MEDS: PROTONIX TAB 40 MG PO SCH ×2 (09:17→21:00)
[2023-06-13] MEDS: ROBITUSSIN DM PO SCH ×4 (09:17→21:00)
[2023-06-13] MEDS: LOVENOX INJ 40 MG SYR SC SCH (09:18)
[2023-06-13] MEDS: CLARITIN PO SCH (09:18)
[2023-06-13] MEDS: ZOLOFT PO SCH (09:18)
[2023-06-13] MEDS: MYSOLINE PO SCH ×2 (09:18→21:01)
[2023-06-13] MEDS: ZADITOR EYE DROPS EACHEYE SCH ×2 (09:19→20:59)
[2023-06-13] MEDS: D5 1/2 NS + KCL 20 MEQ/L 1,000 ML with MAGNESIUM SULFATE 50% INJ VIAL 1 G IV SCH ×4 (09:45→23:34)
--- NOTE | 2023-06-13 10:46 | PCM.PROG ---
Progress Note Progress Note for Day of Date of Exam: 06/13/23 Subjective Subjective: Pt is a 87 year old female past medical history of COPD, Hypertension, DMT2, Dementia, admitted for acute cystitis and pneumonia. Labs/imaging reviewed - Hgb 12.2 WBC 8.2 - AIT resp panel: MRSA - Urine cx: no growth Plan: Continue with IV hydration and antibiotics Rocephin + Vancomycin. Wean O2 as tolerated. Continue nebs. Continue home medications. Follow AM labs/imagi ng. Past Medical Family Social History Allergies: Allergies Sulfa (Sulfonamide Antibiotics) Allergy (Unknown, Verified 06/10/23 13:35) per [facility] Vital Signs and I&O's Vital Signs: Vital Signs Temperature 98.1 F Temperature 99 F Pulse Rate [Left Brachial] 86 Pulse Rate [Left Brachial] 89 Pulse Rate 89 Respiratory Rate 20 Respiratory Rate 22 Blood Pressure [Left Arm] 182/86 Blood Pressure [Left Arm] 168/78 O2 Sat by Pulse Oximetry 99 O2 Sat by Pulse Oximetry 97 O2 Sat by Pulse Oximetry 99 Intake and Output: Intake & Output 06/10/23 06/11/23 06/12/23 06/13/23 23:59 23:59 23:59 23:59 Intake Total 0 / 0 2068 / 2068 2882 / 2882 1040 / 1040 Output Total 950 / 950 1700 / 1700 2049 / 2049 1200 / 1200 Balance -950 / -950 369 / 369 832 / 832 -160 / -160 Physical Exam Oriented: Normal Eyes: Normal Ear: Normal Nose: Normal Throat: Normal Respiratory: Diminished Cardiovascular: Normal Auscultation: Bowel Sounds: Normal Tenderness: Normal Skin: Normal Musculoskeletal: Normal Psychiatric: Normal Mood Description: Calm and Appropriate Affect: Normal Speech Pattern: Clear and Appropriate Laboratory and Diagnostics 06/13/23 04:10 06/13/23 04:10 Labs: 06/10/23 12:54 Urine,Catheterized Urine Culture - Final Laboratory WBC 8.2 X10^3/uL (3.6-10.0) 06/13/23 04:10 RBC 4.51 X10^6/uL (3.5-5.4) 06/13/23 04:10 Hgb 12.2 g/dL (12.0-16.0) 06/13/23 04:10 Hct 36.9 % (36.0-47.0) 06/13/23 04:10 MCV 81.9 fL (80.0-100.0) 06/13/23 04:10 MCH 27.0 pg (27.0-34.0) 06/13/23 04:10 MCHC 33.0 g/dL (33.0-35.0) 06/13/23 04:10 RDW 15.2 % (11.6-16.5) 06/13/23 04:10 Plt Count 340 X10^3/uL (150.0-450.0) 06/13/23 04:10 MPV 8.3 fL (7.4-11.0) 06/13/23 04:10 Neut % (Auto) 66.7 % (42.0-75.0) 06/13/23 04:10 Lymph % (Auto) 18.4 % (21.0-51.0) L 06/13/23 04:10 [place] % (Auto) 9.0 % (0.0-13.0) 06/13/23 04:10 Eos % (Auto) 5.2 % (0.9-2.9) H 06/13/23 04:10 Baso % (Auto) 0.7 % (0.2-1.0) 06/13/23 04:10 Neut # (Auto) 5.5 x10^3/uL (2.2-4.8) H 06/13/23 04:10 Lymph # (Auto) 1.5 X10^3/uL (1.3-2.9) 06/13/23 04:10 [place] # (Auto) 0.7 x10^3/uL (0.3-0.8) 06/13/23 04:10 Eos # (Auto) 0.4 x10^3/uL (0.0-0.2) H 06/13/23 04:10 Baso # (Auto) 0.1 X10^3/uL (0.0-0.1) 06/13/23 04:10 Absolute Nucleated RBC 0.1 /100WBC 06/13/23 04:10 Sodium 138 mmol/L (136-145) 06/13/23 04:10 Corrected Sodium 139 mmol/L (136-145) 06/13/23 04:10 Potassium 4.2 mmol/L (3.5-5.1) 06/13/23 04:10 Chloride 103 mmol/L (98-107) 06/13/23 04:10 Carbon Dioxide 27.1 mmol/L (21-32) 06/13/23 04:10 BUN 5 mg/dL (7-18) L 06/13/23 04:10 Creatinine 0.58 mg/dL (0.55-1.02) 06/13/23 04:10 Est GFR (MDRD) Af Amer > 60 (>60) 06/13/23 04:10 Est GFR (MDRD) Non-Af > 60 (>60) 06/13/23 04:10 Glucose 132 mg/dL (65-99) H 06/13/23 04:10 POC Glucose (mg/dL) 164 mg/dL (65-99) H 06/13/23 05:30 Calcium 8.2 mg/dL (8.5-10.1) L 06/13/23 04:10 Corrected Calcium 9.6 mg/dL (8.5-10.1) 06/13/23 04:10 Magnesium 1.8 mg/dL (2.0-2.9) L 06/13/23 04:10 Total Bilirubin 0.20 mg/dL (0.2-1.0) 06/13/23 04:10 AST 19 Units/L (15-37) 06/13/23 04:10 ALT 15 Units/L (12-78) 06/13/23 04:10 Alkaline Phosphatase 101 Units/L (46-116) 06/13/23 04:10 Total Protein 7.4 g/dL (6.4-8.2) 06/13/23 04:10 Albumin 2.3 g/dL (3.4-5.0) L 06/13/23 04:10 Globulin 5.1 g/dL (2.5-4.5) H 06/13/23 04:10 Albumin/Globulin Ratio 0.5 Ratio (1.1-2.1) L 06/13/23 04:10 Lipase 48 Units/L (73-393) L 06/10/23 12:45 Specimen Type Catherized urine 06/10/23 12:54 Urine Color Yellow (YELLOW) 06/10/23 12:54 Urine Appearance Turbid (CLEAR) 06/10/23 12:54 Urine pH 6.0 (5.0 - 8.0) 06/10/23 12:54 Ur Specific [place] 1.025 (1.000-1.030) 06/10/23 12:54 Urine Protein 2+ (NEGATIVE) 06/10/23 12:54 Urine Glucose (UA) Negative (NEGATIVE) 06/10/23 12:54 Urine Ketones Negative (NEGATIVE) 06/10/23 12:54 Urine Blood 4+ (NEGATIVE) 06/10/23 12:54 Urine Nitrite Negative (NEGATIVE) 06/10/23 12:54 Urine Bilirubin Negative (NEGATIVE) 06/10/23 12:54 Urine Urobilinogen Normal (NORMAL) 06/10/23 12:54 Ur Leukocyte Esterase 3+ (NEGATIVE) 06/10/23 12:54 Urine RBC Tntc /HPF (0-3) A 06/10/23 12:54 Urine WBC Tntc /HPF (0-5) A 06/10/23 12:54 Ur Squamous Epith Cells Rare /HPF (NEGATIVE) 06/10/23 12:54 Urine Bacteria 1+ /HPF (NEGATIVE) 06/10/23 12:54 Ur Culture Indicated? Yes/culture set up 06/10/23 12:54 SARS CoV-2 RNA Rapid SHANIKA Negative (NEGATIVE) 06/10/23 12:58 Plan (1) Acute cystitis: Status: Acute Qualifiers: Hematuria presence: without hematuria Qualified Code(s): N30.00 - Acute cystitis without hematuria (2) Dehydration: Status: Acute Plan: Continue IVF (3) Pneumonia: Status: Acute Qualifiers: Laterality: unspecified laterality Lung location: unspecified part of lung Pneumonia type: due to methicillin-resistant Staphylococcus aureus (MRSA) Qualified Code(s): J15.212 - Pneumonia due to Methicillin resistant Staphylococcus aureus (4) Dementia: Status: Acute (5) Hypertension: Status: Acute (6) Gastroesophageal reflux disease: Status: Acute (7) Controlled diabetes mellitus: Status: None
[2023-06-13] MEDS: NovoLIN R (or HumuLIN R) SUBCUT PRN ×2 (11:39→16:11)
[2023-06-13 20:29] LABS: CREATININE 0.42 mg/dL (0.55-1.02); VANCOMYCIN,TROUGH 16.3 ug/mL (15-20)
[2023-06-13] MEDS ORDERED: PHARMACY COMMENT IV NR (20:30)
[2023-06-13] MEDS: COLACE CAP 100 MG PO SCH (21:01)
[2023-06-13] MEDS: SNACK - Diabetic Appropriate PO SCH (21:01)
[2023-06-14] MEDS: D5 1/2 NS + KCL 20 MEQ/L 1,000 ML with MAGNESIUM SULFATE 50% INJ VIAL 1 G IV SCH ×4 (01:39→09:04)
[2023-06-14 04:44] LABS: BASOPHILS # (AUTO) 0.1 X10^3/uL (0.0-0.1); BASOPHILS % (AUTO) 0.8 % (0.2-1.0); EOSINOPHILS # (AUTO) 0.5 x10^3/uL (0.0-0.2); EOSINOPHILS % (AUTO) 5.6 % (0.9-2.9); HEMATOCRIT 34.3 % (36.0-47.0); HEMOGLOBIN 11.4 g/dL (12.0-16.0); LYMPHOCYTES # (AUTO) 1.3 X10^3/uL (1.3-2.9); LYMPHOCYTES % (AUTO) 14.9 % (21.0-51.0); MEAN CORPUSCULAR HEMOGLOBIN 26.9 pg (27.0-34.0); MEAN CORPUSCULAR HGB CONC 33.2 g/dL (33.0-35.0); MEAN CORPUSCULAR VOLUME 81.1 fL (80.0-100.0); MEAN PLATELET VOLUME 8.2 fL (7.4-11.0); MONOCYTES # (AUTO) 0.7 x10^3/uL (0.3-0.8); MONOCYTES % (AUTO) 7.8 % (0.0-13.0); NEUTROPHILS % (AUTO) 70.9 % (42.0-75.0); PLATELET COUNT 296 X10^3/uL (150.0-450.0); RED BLOOD COUNT 4.22 X10^6/uL (3.5-5.4); RED CELL DISTRIBUTION WIDTH 15.1 % (11.6-16.5); WHITE BLOOD COUNT 8.5 X10^3/uL (3.6-10.0)
[2023-06-14 04:58] LABS: ALANINE AMINOTRANSFERASE 11 Units/L (12-78); ALBUMIN 2.1 g/dL (3.4-5.0); ALKALINE PHOSPHATASE 93 Units/L (46-116); ASPARTATE AMINO TRANSFERASE 15 Units/L (15-37); BLOOD UREA NITROGEN 5 mg/dL (7-18); CALCIUM 8.2 mg/dL (8.5-10.1); CARBON DIOXIDE 25.5 mmol/L (21-32); CHLORIDE 101 mmol/L (98-107); COR CA(FOR HYPOALB) 9.7 mg/dL (8.5-10.1); COR NA(FOR HYPERGLY) 136 mmol/L (136-145); CREATININE 0.56 mg/dL (0.55-1.02); GLUCOSE 204 mg/dL (65-99); POTASSIUM 4.4 mmol/L (3.5-5.1); SODIUM 134 mmol/L (136-145); TOTAL PROTEIN 6.9 g/dL (6.4-8.2); eGFR NON BLACK RACES > 60 (>60)
[2023-06-14] MEDS: REGLAN TAB 10 MG PO SCH ×2 (05:36→11:43)
[2023-06-14] MEDS: TESSALON PERLES PO SCH (05:36)
[2023-06-14] MEDS: NovoLIN R (or HumuLIN R) SUBCUT PRN (05:37)
[2023-06-14] MEDS: ASTELIN NASAL SPRAY ENOSTRIL SCH (05:57)
[2023-06-14] MEDS: ROCEPHIN VIAL 1 GRAM 1 G in NS 100 ML IV 100 ML IV SCH (08:19)
[2023-06-14] MEDS: ROBITUSSIN DM PO SCH (08:20)
[2023-06-14] MEDS: LOVENOX INJ 40 MG SYR SC SCH (08:20)
[2023-06-14] MEDS: VANCOMYCIN IV *PREMIX 1 G/200 ML BAG 1 G/200 ML PIGGYBACK IV SCH (08:20)
[2023-06-14] MEDS: DUONEB 0.5 MG/3 MG (3 mL) NEB SCH ×2 (08:40→13:15)
[2023-06-14] MEDS: MYSOLINE PO SCH (09:31)
[2023-06-14] MEDS: PROTONIX TAB 40 MG PO SCH (09:31)
[2023-06-14] MEDS: NEURONTIN CAP 300 MG PO SCH (09:31)
[2023-06-14] MEDS: CLARITIN PO SCH (09:31)
[2023-06-14] MEDS: SINGULAIR TAB 10 MG PO SCH (09:31)
[2023-06-14] MEDS: ZOLOFT PO SCH (09:31)
[2023-06-14] MEDS: NORVASC TAB 10 MG PO SCH (09:32)
[2023-06-14] MEDS: ZADITOR EYE DROPS EACHEYE SCH (09:32)
[2023-06-14 11:45] VITALS: PULSE 88; RESP 18; TEMP 98.1; O2SAT 95
[2023-06-14 13:46] VITALS: BP 134/95
== END 2023-06-14 14:48 | DRG 689 ==
LOC: ER 12:17 → MED/SURG 13:44
PROVIDERS: ADMIT Family Medicine; ATTEND Family Medicine
DX: R05.9 Cough, unspecified; J44.9 Chronic obstructive pulmonary disease, unspecified; J15.212 Pneumonia due to Methicillin resistant Staphylococcus aureus; E86.0 Dehydration; F03.90 Unspecified dementia, unspecified severity, without behavioral disturbance, psychotic disturbance, mood disturbance, and anxiety; Z66 Do not resuscitate; L89.159 Pressure ulcer of sacral region, unspecified stage; E11.65 Type 2 diabetes mellitus with hyperglycemia; N30.00 Acute cystitis without hematuria; Z20.822 Contact with and (suspected) exposure to COVID-19; R06.02 Shortness of breath; K21.9 Gastro-esophageal reflux disease without esophagitis; I10 Essential (primary) hypertension

== ENCOUNTER 2025-04-27 10:43 | Inpatient (IN) ==
--- NOTE | 2025-04-27 10:57 | DR.AMS ---
HPI Time Seen Time Seen by Provider: 04/27/25 10:57 HPI Comment HPI Comment: Patient is an 89-year-old -Turkish female with a recent diagnosis of UTI, 2 days ago and started on Macrobid. They did lab work in the long term and she has WBCs of 21. Nurses in the ER that have seen her on mul tiple occasion reports she looks at her baseline which is nonverbal. Patient has not had fever per nurses report and her vitals have been stable. She does not appear in distress during time of exam. COVID-19 Coronavirus risk:travel/contact w/high risk person: No Has patient experienced Coronavirus symptoms: No PMH PMH Past Medical History: Anemia, Arthritis, COPD, Dementia, Depression, Diabetes, GERD, Hypertension and Sleep Apnea Past Surgical History: Yes Surgical History: Ortho Surgery Family History Family Medical History: Diabetes Mellitus, Coronary Artery Disease, Heart Failure and Hypertension Social History Do you use any recreational Drugs:: No Travel Risk Coronavirus risk:travel/contact w/high risk person: No Has patient experienced Coronavirus symptoms: No ROS Review of Systems Constitutional: No Symptoms Reported Eyes: No Symptoms Reported ENTM: No Symptoms Reported Respiratoy: No Symptoms Reported Cardiovascular: No Symptoms Reported Gastrointestinal/Abdominal: No Symptoms Reported Genitourinary: See HPI Neurological: No Symptoms Reported Musculoskeletal: No Symptoms Reported Integumentary: No Symptoms Reported Hematologic/Lymphatic: No Symptoms Reported Endocrine: No Symptoms Reported Psychiatric: No Symptoms Reported All Other Systems: Reviewed and Negative Unable to Obtain Due To: Altered mental status PE General Limitations: Other (Nonverbal) General Appearance: In No Apparent Distress Head Head Exam: Atraumatic and Normocephalic Eyes Eye exam: Normal Appearance and PERRL ENT ENT Exam: Normal Exam Neck Neck Exam: Normal Inspection Chest Chest Inspection: Normal Inspection Respiratory Respiratory Exam: Normal Lung Sounds Bilat (No wheezes crackles, rhonchi or rails) Cardiovascular Cardiovascular Exam: Regular Rate Abdominal Exam Abdominal Exam: Normal Inspection, Normal Bowel Sounds and Soft; negative Distention, Tenderness, Guarding, Rebound or Rigidity Neurological Neurological Exam: Alert (Nonverbal) Skin Skin Exam: Other (Decubitus ulcer in sacral region with dressings CDI) COURSE Treatment Treatment: Patient appears very stable and is currently a DNR. Discussed case with Dr. Ch who is covering the long term. Given patient's current status and recently started antibiotic we agreed to admit her to the hospital with Aleciadai. Based on my exam and blood work done this morning I do not think it is necessary to do new blood work or repeat CT scan. Blood cultures just became available to me and they determined no growth. Consultation Called: 11:53 Consultation Comments: Discussed case with Dr. Ch and he is agreeable to admission Opioid Opioid Risk Tool Age (Koby box if 16-45): No History of Preadolescent Sexual Abuse: No Total: 0 Total Score Risk Category: Low Risk Copyright: Percy MOLINA predicting aberrant behaviors Discharge Plan Diagnosis Discharge Problem: Acute UTI Discharge Plan Patient Disposition: ADMITTED INPATIENT Condition: Stable Prescriptions: No Action tramadol 50 mg tablet 50 mg PO Q6H MDD 4 PRN (Reason: pain) 30 Days Qty: 120 0RF fentanyl 25 mcg/hr patch 72 hour 1 patch transdermal Q72H MDD 1 30 Days Qty: 15 0RF morphine concentrate 100 mg/5 mL (20 mg/mL) solution 2 mg PO DAILY MDD 4mg PRN (Reason: pain) 30 Days Qty: 30 0RF pantoprazole 40 mg tablet,delayed release (DR/EC) 40 mg PO BID Novolin R Regular U100 Insulin 100 unit/mL Solution See Rx Instructions .ROUTE .COMPLEX Rx Instructions: SLIDING SCALE lidocaine 5 % Cream 1 applic TOPICAL Q6H PRN Rx Instructions: Apply to knees topically every 6 hours as needed for pain primidone 50 mg tablet 50 mg PO BID ketotifen fumarate 0.025 % (0.035 %) drops 1 drp OPHTHALMIC (EYE) BID Patient Comments: [NO ORIGINAL SIG] Rx Instructions: bilateral eyes diclofenac sodium 1 % gel 1 ea TOPICAL TID Patient Comments: [NO ORIGINAL SIG] Rx Instructions: Apply to knees topically every 8 hours as needed for pain sertraline 25 mg tablet 25 mg PO QDAY Rx Instructions: give 1 tblet by mouth one time a day every 3 days acetaminophen [Tylenol] 325 mg Tablet 650 mg PO Q6H PRN albuterol sulfate 2.5 mg /3 mL (0.083 %) solution for nebulization 2.5 mg inhalation ACHS Patient Comments: [NO ORIGINAL SIG] allopurinol 100 mg tablet 100 mg PO QDAY guaifenesin 100 mg/5 mL Liquid 200 mg PO Q6H PRN azelastine 137 mcg (0.1 %) spray,non-aerosol 1 spray INTRANASAL TID Patient Comments: [NO ORIGINAL SIG] zinc Tablet,Chewable 1 tab PO DAILY gabapentin 300 mg Capsule 300 mg PO BID Epogen 10,000 unit/mL Solution 10,000 unit subcut QMONTH Rx Instructions: Give 1ml subq on the 17th every month amlodipine [Norvasc] 10 mg Tablet 10 mg PO DAILY montelukast 10 mg Tablet 10 mg PO DAILY ascorbic acid (vitamin C) 100 mg Tablet 100 mg PO QDAY megestrol 400 mg/10 mL (40 mg/mL) suspension 40 mg PO BID nystatin 100,000 unit/mL Suspension 5 ml PO TID Rx Instructions: swish and swallow acetaminophen 650 mg Suppository 650 mg LA BID ketorolac 10 mg Tablet 10 mg PO QHS Rx Instructions: maximum total duration of 5 days from all oral, intranasal, or parenteral formulations alum-mag hydroxide-simeth [Mylanta II] 400-400-40 mg/5 mL Suspension 20 ml PO DAILY banana [id number]. Powder In Packet 2 ea PO TID Rx Instructions: 2 packets by mouth TID for diarrhea add to glucerna nitrofurantoin monohyd/m-cryst 100 mg capsule 1 cap PO BID fluticasone propion-salmeterol [Advair HFA] 115-21 mcg/actuation Hfa Aerosol Inhaler 2 puff INHALATION BID Pro-Stat 101 15-101 gram-kcal/30 mL Liquid 30 ea PO BID Rx Instructions: 30ml insulin degludec [Tresiba U-100 Insulin] 100 unit/mL Solution 15 unit SUBCUT QDAY Glucerna 1.5 Ramiro 0.08-1.5 gram-kcal/mL Liquid 1 ea PO QID Health Concerns: Post Hospitalization: new medications and changes needed to prevent readmission or further decline. Pt educated and given instructions on all concerns. Plan of Treatment: Continue with present treatment and follow up plan. Pt is to keep follow up appointment as instructed and take medications as ordered. Orders to Discharge Patient Discharge Orders: Transfer (Routine); Ordered 04/27/25 Ordered By: Elmer Ortiz Follow ups/Referrals Follow ups/Referrals: Omi Easton MD [Primary Care Provider, Family Practice] - 3 days Instructions Stand Alone Forms: Find Help Web Site, Post Hospital Follow Up Care Print Language: AUSTRALIAN
[2025-04-27] MEDS: ROCEPHIN VIAL 1 GRAM IVP ONE (11:45)
[2025-04-27] MEDS ORDERED: ROBITUSSIN (PLAIN) PO PRN (12:31)
[2025-04-27] MEDS ORDERED: TYLENOL 325 MG TAB PO PRN (12:31)
[2025-04-27 12:57] LABS: BLOOD/HEMOGLOBIN,URINE 5+ (NEGATIVE); LEUKOCYTE ESTERASE ,URINE 3+ (NEGATIVE); NITRITES,URINE NEGATIVE (NEGATIVE)
[2025-04-27] MEDS ORDERED: [UNRECOGNIZED DRUG - OTHER] PO SCH (13:00)
[2025-04-27] MEDS ORDERED: NUT TX GLUC INTOL LF SOY FIBER PO SCH (13:00)
[2025-04-27 13:13] LABS: APPEARANCE,URINE CLOUDY (CLEAR)
[2025-04-27 13:14] LABS: SQUAMOUS EPITHELIAL CELL,UR RARE /HPF (NEGATIVE)
[2025-04-27] MEDS ORDERED: [UNRECOGNIZED DRUG - OTHER] PO SCH (14:00)
[2025-04-27 14:15] VITALS: BMI 23.4
[2025-04-27] MEDS: NS 1,000 ML IV 1,000 ML IV SCH (14:20)
[2025-04-27] MEDS ORDERED: BUTT CREAM (COMPOUND) TOP PRN (15:01)
[2025-04-27] MEDS: PROVENTIL NEB TX 0.083% 2.5MG/ 3ML IN SCH (16:02)
[2025-04-27] MEDS: ROCEPHIN VIAL 1 GRAM ONE (20:27)
[2025-04-27] MEDS: CONSULT PHARMACY - POTASSIUM & MAGNESIUM XX SCH (20:27)
[2025-04-27] MEDS: SNACK - Diabetic Appropriate PO SCH (20:54)
[2025-04-27] MEDS: PROVENTIL NEB TX 0.083% 2.5MG/ 3ML NEB SCH (20:54)
[2025-04-27] MEDS: NovoLIN R (or HumuLIN R) SUBCUT PRN (20:55)
[2025-04-27] MEDS ORDERED: AMINO ACIDS PROTEIN HYDROLYS PO SCH (21:00)
[2025-04-27] MEDS ORDERED: TYLENOL SUPP 650 MG PR SCH (21:00)
[2025-04-27] MEDS ORDERED: PATIENT'S HOME MEDICATION (Fluticasone Propion-Salmeterol [Advair Hfa] 115-21 mcg/actuatio IN SCH (21:00)
[2025-04-27] MEDS ORDERED: [UNRECOGNIZED DRUG - OTHER] PO SCH (21:00)
[2025-04-27] MEDS: NEURONTIN CAP 300 MG PO SCH (21:00)
[2025-04-27] MEDS: ZADITOR EYE DROPS OP SCH (21:02)
[2025-04-28 06:30] LABS: MEAN PLATELET VOLUME 8.9 fL (7.4-11.0); RED CELL DISTRIBUTION WIDTH 15.0 % (11.6-16.5)
[2025-04-28 06:47] LABS: COR CA(FOR HYPOALB) 10.9 mg/dL (8.5-10.1); CREATININE 0.88 mg/dL (0.55-1.02); eGFR NON BLACK RACES > 60 (>60)
[2025-04-28] MEDS: PULMICORT NEB TX 0.5 MG NEB SCH (08:34)
[2025-04-28] MEDS: ZYLOPRIM PO SCH (08:49)
[2025-04-28] MEDS: NORVASC TAB 10 MG PO SCH (08:49)
[2025-04-28] MEDS: ROCEPHIN VIAL 1 GRAM 1 G in NS 100 ML IV 100 ML IV SCH (08:49)
[2025-04-28] MEDS: NORCO 5/325 MG TAB PO PRN (08:51)
[2025-04-28] MEDS ORDERED: ALUM MAG HYDROXIDE SIMETH PO SCH (09:00)
[2025-04-28] MEDS ORDERED: ASCORBIC ACID 100 MG PO SCH (09:00)
[2025-04-28] MEDS ORDERED: PHARMACY CONSULT XX SCH (10:00)
[2025-04-28] MEDS: LOVENOX INJ 40 MG SYR SC SCH (10:35)
[2025-04-29 07:08] LABS: MEAN PLATELET VOLUME 9.6 fL (7.4-11.0); RED CELL DISTRIBUTION WIDTH 15.2 % (11.6-16.5)
[2025-04-29 07:17] LABS: COR CA(FOR HYPOALB) 10.6 mg/dL (8.5-10.1); CREATININE 0.73 mg/dL (0.55-1.02); eGFR NON BLACK RACES > 60 (>60)
--- NOTE | 2025-04-29 10:34 | DR.H&P ---
H&P History & Physical for Day of: H&P Date: 04/28/25 History of Present Illness History of Present Illness: Patient is 89-year-old female resident of [facility] presenting after having abnormal labs. She failed outpatient treatment in the [facility] for acute cystitis. She is non-verbal at baseline. Labs were obtained there and were abnormal. She was receiving Macrobid previously. Labs/imaging: WBC 17.9, hemoglobin 10, platelets 379, sodium 144, potassium 4.7, creatinine 0.88, glucose 100. Patient was admitted for acute cystitis. She is receiving IV antibiotics Rocephin. Urine/blood cultures pending. Restart home medications. Otherwise continue with current treatment plan. Continue closely monitor and follow-up labs/imaging. Past Medical History Past Medical History: Anemia, Arthritis, COPD, Dementia, Depression, Diabetes, GERD, Hypertension and Sleep Apnea Past Surgical History Surgical History: Ortho Surgery Family History Family Medical History: Diabetes Mellitus and Hypertension Social History Does patient currently use any type of tobacco product: No Have you used tobacco products in the last 12 months: No Type of Tobacco Use: None Does any household member use tobacco: No Alcohol Use: None Drug Use: None Medications Home Medications: Home Medications Medication Instructions Recorded Confirmed Type amlodipine 10 mg tablet (Norvasc) 10 mg PO DAILY 02/1504/27/25 History epoetin lulu 10,000 unit/mL 10,000 unit subcut QMONTH 02/16/20 02/08/25 History injection solution (Epogen) gabapentin 300 mg capsule 300 mg PO BID 02/16/2004/27 History insulin regular human 100 unit/mL See Rx Instructions .Route .COMPLEX 06/16/22 04/27/25 History injection solution (Novolin R Regular U-100 Insulin) pantoprazole 40 mg tablet,delayed 40 mg PO BID 2 04/27/25 History release lidocaine 5 % topical cream 1 applic topical Q6H PRN 0 06/25/22 04/27/25 History montelukast 10 mg tablet 10 mg PO DAILY 08/29/2204/11 History diclofenac sodium 1 % topical gel 1 ea topical TID 04/27/25 History ketotifen fumarate 0.025 % (0.035 1 drp ophthalmic (ey e) BID 06/10/23 04/27/25 History %) eye drops primidone 50 mg tablet 50 mg PO BID 06/10/23 History ascorbic acid (vitamin C) 100 mg 100 mg PO QDAY 04/27/25 History tablet acetaminophen 325 mg tablet 650 mg PO Q6H PRN 08/02/24 04/27/25 History (Tylenol) albuterol sulfate 2.5 mg/3 mL 2.5 mg inhalation ACHS 1 04/27/25 History (0.083 %) solution for nebulization allopurinol 100 mg tablet 100 mg PO QDAY 08/02/2404/11 History azelastine 137 mcg (0.1 %) nasal 1 spray intranasal TI D 08/02/24 04/27/25 History spray guaifenesin 100 mg/5 mL oral liquid 200 mg PO Q6H PRN 08/02/24 04/27/25 History zinc 1 tab PO DAILY 08/02/2404/11 History acetaminophen 650 mg rectal 650 mg AL BID 04/27/25 History suppository aluminum-mag hydroxide-simethicone 20 ml PO DAILY 04/1104/27/25 History 400 mg-400 mg-40 mg/5 mL oral susp amino acids-protein hydrolysate 15 30 ea PO BID 04/27/25 History gram-101 kcal/30 mL oral liquid banana 2 ea PO TID 04/27/25 5 History flakes-transgalactooligosaccharide oral powder packet fluticasone propionate 115 2 puff inhalation BID 04/2704/27/25 History mcg-salmeterol 21 mcg/actuation HFA inhaler (Advair HFA) insulin degludec 100 unit/mL 15 unit subcut QDAY 04/2704/27/25 History subcutaneous solution (Tresiba U-100 Insulin) ketorolac 10 mg tablet 10 mg PO QHS 04/27/25 History megestrol 400 mg/10 mL (40 mg/mL) 40 mg PO BID 5 04/27/25 History oral suspension nitrofurantoin 1 cap PO BID 04/27/25 History monohydrate/macrocrystals 100 mg capsule nutrition tx glu 1 ea PO QID 04/27/25 5 History intol,lac-free,soy-fiber 0.08 gram-1.5 kcal/mL liquid (Glucerna 1.5 Ramiro) nystatin 100,000 unit/mL oral 5 ml PO TID 04/27/25 History suspension Allergies Allergies Allergy/AdvReac Type Severity Reaction Status Date / Time Sulfa (Sulfonamide Allergy Unknown Verified 04/27/25 11:01 Antibiotics) Labs 04/29/25 05:29 04/29/25 06:29 Labs: 04/27/25 12:37 Urine,Catheterized Urine Culture - Preliminary Laboratory WBC 17.9 X10^3/uL (3.6-10.0) H 04/28/25 05:43 RBC 3.81 X10^6/uL (3.5-5.4) 04/28/25 05:43 Hgb 10.0 g/dL (12.0-16.0) L 04/28/25 05:43 Hct 31.1 % (36.0-47.0) L 04/28/25 05:43 MCV 81.7 fL (80.0-100.0) 04/28/25 05:43 MCH 26.4 pg (27.0-34.0) L 04/28/25 05:43 MCHC 32.3 g/dL (33.0-35.0) L 04/28/25 05:43 RDW 15.0 % (11.6-16.5) 04/28/25 05:43 Plt Count 379 X10^3/uL (150.0-450.0) 04/28/25 05:43 MPV 8.9 fL (7.4-11.0) 04/28/25 05:43 Neut % (Auto) 81.5 % (42.0-75.0) H 04/28/25 05:43 Lymph % (Auto) 7.1 % (21.0-51.0) L 04/28/25 05:43 [place] % (Auto) 9.0 % (0.0-13.0) 04/28/25 05:43 Eos % (Auto) 2.2 % (0.9-2.9) 04/28/25 05:43 Baso % (Auto) 0.2 % (0.2-1.0) 04/28/25 05:43 Neut # (Auto) 14.6 x10^3/uL (2.2-4.8) H 04/28/25 05:43 Lymph # (Auto) 1.3 X10^3/uL (1.3-2.9) 04/28/25 05:43 [place] # (Auto) 1.6 x10^3/uL (0.3-0.8) H 04/28/25 05:43 Eos # (Auto) 0.4 x10^3/uL (0.0-0.2) H 04/28/25 05:43 Baso # (Auto) 0.0 X10^3/uL (0.0-0.1) 04/28/25 05:43 Absolute Nucleated RBC 0.0 /100WBC 04/28/25 05:43 Sodium 144 mmol/L (136-145) 04/28/25 05:43 Corrected Sodium TNP 04/28/25 05:43 Potassium 4.7 mmol/L (3.5-5.1) 04/28/25 05:43 Chloride 108 mmol/L (98-107) H 04/28/25 05:43 Carbon Dioxide 23.3 mmol/L (21-32) 04/28/25 05:43 BUN 47 mg/dL (7-18) H 04/28/25 05:43 Creatinine 0.88 mg/dL (0.55-1.02) 04/28/25 05:43 Est GFR (MDRD) Af Amer > 60 (>60) 04/28/25 05:43 Est GFR (MDRD) Non-Af > 60 (>60) 04/28/25 05:43 Glucose 100 mg/dL (65-99) H 04/28/25 05:43 POC Glucose (mg/dL) 96 mg/dL (65-99) 04/28/25 05:19 Lactic Acid 1.2 mmol/L (0.4-2.0) 04/27/25 16:26 Calcium 9.3 mg/dL (8.5-10.1) 04/28/25 05:43 Corrected Calcium 10.9 mg/dL (8.5-10.1) H 04/28/25 05:43 Total Bilirubin 0.70 mg/dL (0.2-1.0) 04/28/25 05:43 AST 22 Units/L (15-37) 04/28/25 05:43 ALT 31 Units/L (12-78) 04/28/25 05:43 Alkaline Phosphatase 210 Units/L (46-116) H 04/28/25 05:43 Total Protein 8.3 g/dL (6.4-8.2) H 04/28/25 05:43 Albumin 2.0 g/dL (3.4-5.0) L 04/28/25 05:43 Globulin 6.3 g/dL (2.5-4.5) H 04/28/25 05:43 Albumin/Globulin Ratio 0.3 Ratio (1.1-2.1) L 04/28/25 05:43 Specimen Type Catherized urine 04/27/25 12:37 Urine Color Brown (YELLOW) 04/27/25 12:37 Urine Appearance Cloudy (CLEAR) 04/27/25 12:37 Urine pH 5.0 (5.0 - 8.0) 04/27/25 12:37 Ur Specific [place] 1.020 (1.000-1.030) 04/27/25 12:37 Urine Protein 3+ (NEGATIVE) 04/27/25 12:37 Urine Glucose (UA) Negative (NEGATIVE) 04/27/25 12:37 Urine Ketones 1+ (NEGATIVE) 04/27/25 12:37 Urine Blood 5+ (NEGATIVE) 04/27/25 12:37 Urine Nitrite Negative (NEGATIVE) 04/27/25 12:37 Urine Bilirubin 1+ (NEGATIVE) 04/27/25 12:37 Urine Urobilinogen 2+ (NORMAL) 04/27/25 12:37 Ur Leukocyte Esterase 3+ (NEGATIVE) 04/27/25 12:37 Urine RBC 3-5 /HPF (0-3) A 04/27/25 12:37 Urine WBC Tntc /HPF (0-5) A 04/27/25 12:37 Ur Squamous Epith Cells Rare /HPF (NEGATIVE) 04/27/25 12:37 Urine Bacteria Trace /HPF (NEGATIVE) 04/27/25 12:37 Ur Culture Indicated? Yes/culture set up 04/27/25 12:37 Review of Systems Constitutional: See HPI (Unable to obtain, pt non-verbal at baseline) Physical Exam Vital Signs: Vital Signs Temperature 97.9 F Temperature 97.7 F Pulse Rate [Left Radial] 94 Pulse Rate [Left Radial] 79 Pulse Rate 105 Respiratory Rate 17 Respiratory Rate 17 Respiratory Rate 20 Blood Pressure [Left Arm] 150/70 Blood Pressure [Left Arm] 115/56 O2 Sat by Pulse Oximetry 98 O2 Sat by Pulse Oximetry 99 O2 Sat by Pulse Oximetry 100 Oriented: Unable to test Eyes: Normal Ear: Normal Nose: Normal Respiratory: Clear Throughout Cardiovascular: Normal : Normal Auscultation: Bowel Sounds: Normal Palpation: Normal Tenderness: Normal Skin: Normal Mood Description: Calm Speech Pattern: Unable to speak Assessment/Plan (1) Acute cystitis: Qualifiers: Hematuria presence: without hematuria Qualified Code(s): N30.00 - Acute cystitis without hematuria Status: Acute Plan: IV Rocephin Urine culture pending Review H&P Reviewed: Yes Patient was examined?: Yes
[2025-04-29] MEDS: ULTRAM PO PRN (10:38)
--- NOTE | 2025-04-29 11:50 | PCM.PROG ---
Progress Note Progress Note for Day of Date of Exam: 04/29/25 Subjective Subjective: Patient seen at bedside, no acute events overnight. She is currently admitted for generalized weakness and UTI. She remains on IV fluids and antibiotics. She is a long term patient who is nonambulatory. Labs/imaging reviewed: - WBC 16.7 hemoglobin 9.4 glucose 104 creatinine 0.73 potassium 4.5 - Urine culture and blood culture no growth Plan: Continue IV antibiotics and fluids. Follow final cultures. AIT UTI panel pending. Continue home medications. Replace electrolytes as per protocol. Past Medical Family Social History Allergies: Allergies Sulfa (Sulfonamide Antibiotics) Allergy (Unknown, Verified 04/27/25 11:01) per [facility] Vital Signs and I&O's Vital Signs: Vital Signs Temperature 97.9 F Temperature 99.5 F Pulse Rate [Left Radial] 93 Pulse Rate [Left Radial] 86 Pulse Rate 84 Respiratory Rate 18 Respiratory Rate 17 Respiratory Rate 19 Blood Pressure [Left Arm] 175/80 Blood Pressure [Left Arm] 152/70 O2 Sat by Pulse Oximetry 98 O2 Sat by Pulse Oximetry 97 O2 Sat by Pulse Oximetry 98 Intake and Output: Intake & Output 04/26/25 04/27/25 04/28/25 04/29/25 23:59 23:59 23:59 23:59 Intake Total 530 / 530 1326 / 1326 575 / 575 Balance 530 / 530 1326 / 1326 575 / 575 Physical Exam Oriented: Unable to test Eyes: Normal Ear: Normal Nose: Normal Respiratory: Generalized and Diminished Cardiovascular: Normal : Normal Auscultation: Bowel Sounds: Normal Tenderness: Normal Skin: Normal Musculoskeletal: Normal Psychiatric: Normal Mood Description: Calm Affect: Normal Speech Pattern: Unable to speak Laboratory and Diagnostics 04/29/25 05:29 04/29/25 06:29 Labs: 04/27/25 12:37 Urine,Catheterized Urine Culture - Final 04/27/25 12:14 Blood Blood Culture - Preliminary 04/27/25 12:07 Blood Blood Culture - Preliminary Laboratory WBC 16.7 X10^3/uL (3.6-10.0) H 04/29/25 05:29 RBC 3.56 X10^6/uL (3.5-5.4) 04/29/25 05:29 Hgb 9.4 g/dL (12.0-16.0) L 04/29/25 05:29 Hct 29.2 % (36.0-47.0) L 04/29/25 05:29 MCV 81.9 fL (80.0-100.0) 04/29/25 05:29 MCH 26.3 pg (27.0-34.0) L 04/29/25 05:29 MCHC 32.1 g/dL (33.0-35.0) L 04/29/25 05: RDW 15.2 % (11.6-16.5) 04/29/25 05:29 Plt Count 370 X10^3/uL (150.0-450.0) 04/29/25 05:29 MPV 9.6 fL (7.4-11.0) 04/29/25 05:29 Neut % (Auto) 77.7 % (42.0-75.0) H 04/29/25 05:29 Lymph % (Auto) 8.4 % (21.0-51.0) L 04/29/25 05:29 [place] % (Auto) 9.7 % (0.0-13.0) 04/29/25 05:29 Eos % (Auto) 3.8 % (0.9-2.9) H 04/29/25 05:29 Baso % (Auto) 0.4 % (0.2-1.0) 04/29/25 05:29 Neut # (Auto) 13.0 x10^3/uL (2.2-4.8) H 04/29/25 05:29 Lymph # (Auto) 1.4 X10^3/uL (1.3-2.9) 04/29/25 05:29 [place] # (Auto) 1.6 x10^3/uL (0.3-0.8) H 04/29/25 05:29 Eos # (Auto) 0.6 x10^3/uL (0.0-0.2) H 04/29/25 05:29 Baso # (Auto) 0.1 X10^3/uL (0.0-0.1) 04/29/25 05:29 Absolute Nucleated RBC 0.0 /100WBC 04/29/25 05:29 Sodium 143 mmol/L (136-145) 04/29/25 06:29 Corrected Sodium TNP 04/29/25 06:29 Potassium 4.5 mmol/L (3.5-5.1) 04/29/25 06:29 Chloride 107 mmol/L (98-107) 04/29/25 06:29 Carbon Dioxide 25.1 mmol/L (21-32) 04/29/25 06:29 BUN 40 mg/dL (7-18) H 04/29/25 06:29 Creatinine 0.73 mg/dL (0.55-1.02) 04/29/25 06:29 Est GFR (MDRD) Af Amer > 60 (>60) 04/29/25 06:29 Est GFR (MDRD) Non-Af > 60 (>60) 04/29/25 06:29 Glucose 104 mg/dL (65-99) H 04/29/25 06:29 POC Glucose (mg/dL) 274 mg/dL (65-99) H 04/29/25 11:16 Lactic Acid 1.2 mmol/L (0.4-2.0) 04/27/25 16:26 Calcium 8.9 mg/dL (8.5-10.1) 04/29/25 06:29 Corrected Calcium 10.6 mg/dL (8.5-10.1) H 04/29/25 06:29 Total Bilirubin 0.40 mg/dL (0.2-1.0) 04/29/25 06:29 AST 20 Units/L (15-37) 04/29/25 06:29 ALT 26 Units/L (12-78) 04/29/25 06:29 Alkaline Phosphatase 200 Units/L (46-116) H 04/29/25 06:29 Total Protein 7.9 g/dL (6.4-8.2) 04/29/25 06:29 Albumin 1.9 g/dL (3.4-5.0) L 04/29/25 06:29 Globulin 6.0 g/dL (2.5-4.5) H 04/29/25 06:29 Albumin/Globulin Ratio 0.3 Ratio (1.1-2.1) L 04/29/25 06:29 Specimen Type Catherized urine 04/27/25 12:37 Urine Color Brown (YELLOW) 04/27/25 12:37 Urine Appearance Cloudy (CLEAR) 04/27/25 12:37 Urine pH 5.0 (5.0 - 8.0) 04/27/25 12:37 Ur Specific [place] 1.020 (1.000-1.030) 04/27/25 12:37 Urine Protein 3+ (NEGATIVE) 04/27/25 12:37 Urine Glucose (UA) Negative (NEGATIVE) 04/27/25 12:37 Urine Ketones 1+ (NEGATIVE) 04/27/25 12:37 Urine Blood 5+ (NEGATIVE) 04/27/25 12:37 Urine Nitrite Negative (NEGATIVE) 04/27/25 12:37 Urine Bilirubin 1+ (NEGATIVE) 04/27/25 12:37 Urine Urobilinogen 2+ (NORMAL) 04/27/25 12:37 Ur Leukocyte Esterase 3+ (NEGATIVE) 04/27/25 12:37 Urine RBC 3-5 /HPF (0-3) A 04/27/25 12:37 Urine WBC Tntc /HPF (0-5) A 04/27/25 12:37 Ur Squamous Epith Cells Rare /HPF (NEGATIVE) 04/27/25 12:37 Urine Bacteria Trace /HPF (NEGATIVE) 04/27/25 12:37 Ur Culture Indicated? 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
[2025-04-29] MEDS: MORPHINE SULFATE INJ 2 MG INJ IVP PRN (11:52)
[2025-04-29] MEDS: PROVENTIL NEB TX 0.083% 2.5MG/ 3ML NEB PRN (12:35)
[2025-04-30 07:01] LABS: MEAN PLATELET VOLUME 9.5 fL (7.4-11.0); RED CELL DISTRIBUTION WIDTH 15.5 % (11.6-16.5)
[2025-04-30 07:11] LABS: COR NA(FOR HYPERGLY) 144 mmol/L (136-145); CREATININE 0.75 mg/dL (0.55-1.02); eGFR NON BLACK RACES > 60 (>60)
[2025-04-30 07:35] LABS: COR CA(FOR HYPOALB) 11.1 mg/dL (8.5-10.1)
[2025-04-30] MEDS: PROVENTIL NEB TX 0.083% 2.5MG/ 3ML ONE (07:46)
[2025-04-30] MEDS: ZOSYN VIAL 3.375 GRAMS 3.375 G in NS 100 ML IV 100 ML IV SCH (10:19)
--- NOTE | 2025-04-30 11:36 | PCM.PROG ---
Progress Note Progress Note for Day of Date of Exam: 04/30/25 Subjective Subjective: Patient seen at bedside, no acute events overnight. She is currently admitted for generalized weakness and UTI. She remains on IV fluids and antibiotics. Her WBC is still elevated 16.2. Urine and blood Cx are negative. She is a senior care patient who is nonambulatory. Labs/imaging reviewed: - WBC 16.2 hemoglobin 8.8 glucose 194 creatinine 0.75 potassium 4.8 - Urine culture and blood culture no growth Plan: Continue IV antibiotics and fluids. Switch to Zosyn. AIT UTI panel pending. Continue home medications. Replace electrolytes as per protocol. Encourage PO intake. Monitor AM labs/imaging. Past Medical Family Social History Allergies: Allergies Sulfa (Sulfonamide Antibiotics) Allergy (Unknown, Verified 04/27/25 11:01) per [facility] Vital Signs and I&O's Vital Signs: Vital Signs Temperature 98.1 F Temperature 99.8 F Pulse Rate [Left Radial] 86 Pulse Rate [Left Radial] 87 Pulse Rate 92 Pulse Rate 87 Respiratory Rate 18 Respiratory Rate 18 Respiratory Rate 17 Respiratory Rate 18 Blood Pressure [Left Arm] 136/63 Blood Pressure [Left Arm] 136/63 O2 Sat by Pulse Oximetry 99 O2 Sat by Pulse Oximetry 97 O2 Sat by Pulse Oximetry 99 O2 Sat by Pulse Oximetry 96 Intake and Output: Intake & Output 04/27/25 04/28/25 04/29/25 04/30/25 23:59 23:59 23:59 23:59 Intake Total 530 / 530 1326 / 1326 1516 / 1516 737 / 737 Balance 530 / 530 1326 / 1326 1516 / 1516 737 / 737 Physical Exam Oriented: Unable to test Eyes: Normal Ear: Normal Nose: Normal Respiratory: Generalized and Diminished Cardiovascular: Normal : Normal Auscultation: Bowel Sounds: Normal Palpation: Normal Tenderness: Normal Skin: Normal Musculoskeletal: Normal Psychiatric: Normal Mood Description: Calm Affect: Normal Speech Pattern: Clear Laboratory and Diagnostics 04/30/25 06:18 04/30/25 06:18 Labs: 04/27/25 12:37 Urine,Catheterized Urine Culture - Final 04/27/25 12:14 Blood Blood Culture - Preliminary 04/27/25 12:07 Blood Blood Culture - Preliminary Laboratory WBC 16.2 X10^3/uL (3.6-10.0) H 04/30/25 06:18 RBC 3.33 X10^6/uL (3.5-5.4) L 04/30/25 06:18 Hgb 8.8 g/dL (12.0-16.0) L 04/30/25 06:18 Hct 27.3 % (36.0-47.0) L 04/30/25 06:18 MCV 82.0 fL (80.0-100.0) 04/30/25 06:18 MCH 26.5 pg (27.0-34.0) L 04/30/25 06:18 MCHC 32.3 g/dL (33.0-35.0) L 04/30/25 06:18 RDW 15.5 % (11.6-16.5) 04/30/25 06:18 Plt Count 388 X10^3/uL (150.0-450.0) 04/30/25 06:18 MPV 9.5 fL (7.4-11.0) 04/30/25 06:18 Neut % (Auto) 76.0 % (42.0-75.0) H 04/30/25 06:18 Lymph % (Auto) 10.0 % (21.0-51.0) L 04/30/25 06:18 [place] % (Auto) 10.2 % (0.0-13.0) 04/30/25 06:18 Eos % (Auto) 3.3 % (0.9-2.9) H 04/30/25 06:18 Baso % (Auto) 0.5 % (0.2-1.0) 04/30/25 06:18 Neut # (Auto) 12.3 x10^3/uL (2.2-4.8) H 04/30/25 06:18 Lymph # (Auto) 1.6 X10^3/uL (1.3-2.9) 04/30/25 06:18 [place] # (Auto) 1.6 x10^3/uL (0.3-0.8) H 04/30/25 06:18 Eos # (Auto) 0.5 x10^3/uL (0.0-0.2) H 04/30/25 06:18 Baso # (Auto) 0.1 X10^3/uL (0.0-0.1) 04/30/25 06:18 Absolute Nucleated RBC 0.5 /100WBC 04/30/25 06:18 Sodium 142 mmol/L (136-145) 04/30/25 06:18 Corrected Sodium 144 mmol/L (136-145) 04/30/25 06:18 Potassium 4.8 mmol/L (3.5-5.1) 04/30/25 06:18 Chloride 109 mmol/L (98-107) H 04/30/25 06:18 Carbon Dioxide 21.9 mmol/L (21-32) 04/30/25 06:18 BUN 28 mg/dL (7-18) H 04/30/25 06:18 Creatinine 0.75 mg/dL (0.55-1.02) 04/30/25 06:18 Est GFR (MDRD) Af Amer > 60 (>60) 04/30/25 06:18 Est GFR (MDRD) Non-Af > 60 (>60) 04/30/25 06:18 Glucose 194 mg/dL (65-99) H 04/30/25 06:18 POC Glucose (mg/dL) 354 mg/dL (65-99) H 04/30/25 10:59 Lactic Acid 1.2 mmol/L (0.4-2.0) 04/27/25 16:26 Calcium 8.9 mg/dL (8.5-10.1) 04/30/25 06:18 Corrected Calcium 11.1 mg/dL (8.5-10.1) H 04/30/25 06:18 Total Bilirubin 0.40 mg/dL (0.2-1.0) 04/30/25 06:18 AST 24 Units/L (15-37) 04/30/25 06:18 ALT 15 Units/L (12-78) 04/30/25 06:18 Alkaline Phosphatase 182 Units/L (46-116) H 04/30/25 06:18 Total Protein 7.5 g/dL (6.4-8.2) 04/30/25 06:18 Albumin 1.3 g/dL (3.4-5.0) L 04/30/25 06:18 Globulin 6.2 g/dL (2.5-4.5) H 04/30/25 06:18 Albumin/Globulin Ratio 0.2 Ratio (1.1-2.1) L 04/30/25 06:18 Specimen Type Catherized urine 04/27/25 12:37 Urine Color Brown (YELLOW) 04/27/25 12:37 Urine Appearance Cloudy (CLEAR) 04/27/25 12:37 Urine pH 5.0 (5.0 - 8.0) 04/27/25 12:37 Ur Specific [place] 1.020 (1.000-1.030) 04/27/25 12:37 Urine Protein 3+ (NEGATIVE) 04/27/25 12:37 Urine Glucose (UA) Negative (NEGATIVE) 04/27/25 12:37 Urine Ketones 1+ (NEGATIVE) 04/27/25 12:37 Urine Blood 5+ (NEGATIVE) 04/27/25 12:37 Urine Nitrite Negative (NEGATIVE) 04/27/25 12:37 Urine Bilirubin 1+ (NEGATIVE) 04/27/25 12:37 Urine Urobilinogen 2+ (NORMAL) 04/27/25 12:37 Ur Leukocyte Esterase 3+ (NEGATIVE) 04/27/25 12:37 Urine RBC 3-5 /HPF (0-3) A 04/27/25 12:37 Urine WBC Tntc /HPF (0-5) A 04/27/25 12:37 Ur Squamous Epith Cells Rare /HPF (NEGATIVE) 04/27/25 12:37 Urine Bacteria Trace /HPF (NEGATIVE) 04/27/25 12:37 Ur Culture Indicated? 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
[2025-04-30] MEDS: PROVENTIL NEB TX 0.083% 2.5MG/ 3ML NEB SCH (18:00)
[2025-04-30] MEDS ORDERED: COLACE CAP 100 MG PO SCH (21:00)
[2025-04-30] MEDS ORDERED: MILK OF MAGNESIA PO SCH (21:00)
[2025-05-01] MEDS: NS 250 ML IV 25 ML IV PRN (05:40)
[2025-05-01 05:47] LABS: MEAN PLATELET VOLUME 9.3 fL (7.4-11.0); RED CELL DISTRIBUTION WIDTH 15.1 % (11.6-16.5)
[2025-05-01 06:06] LABS: COR CA(FOR HYPOALB) 10.8 mg/dL (8.5-10.1); COR NA(FOR HYPERGLY) 145 mmol/L (136-145); CREATININE 0.79 mg/dL (0.55-1.02); eGFR NON BLACK RACES > 60 (>60)
[2025-05-01] MEDS ORDERED: CONSULT PHARMACY - POTASSIUM & MAGNESIUM XX SCH (07:00)
[2025-05-01 07:53] VITALS: RESP 21; TEMP 98.5
[2025-05-01] MEDS: MAG-OX TAB PO SCH (08:13)
[2025-05-01 08:55] VITALS: BP 137/63
[2025-05-01 13:26] VITALS: PULSE 99; O2SAT 98
--- NOTE | 2025-05-02 08:53 | CT ---
EXAM: CT CHEST WITHOUT IV CONTRAST HISTORY: elevated wbc; COMPARISON: Chest x-ray dated 11/16/[address] dated 06/24/2022. TECHNIQUE: Axial CT images were obtained through the chest without IV contrast. Coronal and sagittal reformatted images were included. All CT scans at this facility use dose modulation, iterative reconstruction, and/or weight based dosing when appropriate to reduce radiation dose to as low as reasonably achievable. FINDINGS: Exam degraded by patient motion artifact. Wsdddwto-ma-prwtdt coronary artery calcifications. No pericardial effusion. No thoracic lymphadenopathy. Large hiatal hernia with partial intrathoracic stomach and transverse colon. Trace right pleural effusion. Scattered lung atelectasis. Trachea is midline central airways are patent. No focal consolidation. No pneumothorax. No acute osseous findings. Osteopenia and multilevel degenerative disc disease. Chronic L2 vertebral body compression fracture deformity. In the visualized upper abdomen, the gallbladder is distended with wall thickening and surrounding edema. Fat containing supraumbilical ventral hernia. IMPRESSION: 1. Findings concerning for cholecystitis in the visualized upper abdomen. Gallbladder is distended with wall thickening and surrounding edema. If clinical findings are discordant, nuclear medicine hepatobiliary scan may be considered for further evaluation. 2. Respiratory motion with trace right pleural effusion and scattered atelectasis. No focal consolidation. THIS IS AN ELECTRONICALLY VERIFIED FINAL REPORT 05/02/2025 8:32 AM - Electronically signed by Sebastian Rowan MD
--- NOTE | 2025-05-02 16:45 | PCM.DCPLAN ---
DISCHARGE SUMMARY Admission Date Date of Admission: 04/27/25 Discharge Date Discharge Date: 05/01/25 Admission Diagnoses (1) Anemia: Status: Chronic (2) Mild protein-calorie malnutrition: Status: Chronic Discharge Medications Discharge Medications: Home Medication List acetaminophen 650 mg rectal suppository 650 mg MO BID 04/27/25 [History] aluminum-mag hydroxide-simethicone 400 mg-400 mg-40 mg/5 mL oral susp 20 ml PO DAILY 04/27/25 [History] amino acids-protein hydrolysate 15 gram-101 kcal/30 mL oral liquid 30 ea PO BID 04/27/25 [History] banana flakes-transgalactooligosaccharide oral powder packet 2 ea PO TID 04/27/25 [History] fluticasone propionate 115 mcg-salmeterol 21 mcg/actuation HFA inhaler (Advair HFA) 2 puff inhalation BID 04/27/25 [History] insulin degludec 100 unit/mL subcutaneous solution (Tresiba U-100 Insulin) 15 unit subcut QDAY 04/27/25 [History] ketorolac 10 mg tablet 10 mg PO QHS 04/27/25 [History] megestrol 400 mg/10 mL (40 mg/mL) oral suspension 40 mg PO BID 04/27/25 [History] nitrofurantoin monohydrate/macrocrystals 100 mg capsule 1 cap PO BID 04/27/25 [History] nutrition tx glu intol,lac-free,soy-fiber 0.08 gram-1.5 kcal/mL liquid (Glucerna 1.5 Ramiro) 1 ea PO QID 04/27/25 [History] nystatin 100,000 unit/mL oral suspension 5 ml PO TID 04/27/25 [History] ertapenem 1 gram solution for injection 1 g IV QDAY #6 ea 05/01/25 [Rx] Prescriptions: ertapenem [facility] [place] Hospital Course Vital Signs: Vital Signs Temperature 98.5 F Pulse Rate [Left Radial] 74 Pulse Rate 99 Pulse Rate 102 Respiratory Rate 21 Blood Pressure [Right Arm] 137/63 Blood Pressure [Right Arm] 119/71 O2 Sat by Pulse Oximetry 98 O2 Sat by Pulse Oximetry 100 O2 Sat by Pulse Oximetry 100 Latest Lab Results: Laboratory Last Values WBC 15.7 X10^3/uL (3.6-10.0) H 05/01/25 05:21 RBC 3.29 X10^6/uL (3.5-5.4) L 05/01/25 05:21 Hgb 8.6 g/dL (12.0-16.0) L 05/01/25 05:21 Hct 26.6 % (36.0-47.0) L 05/01/25 05:21 MCV 80.8 fL (80.0-100.0) 05/01/25 05:21 MCH 26.1 pg (27.0-34.0) L 05/01/25 05:21 MCHC 32.3 g/dL (33.0-35.0) L 05/01/25 05:21 RDW 15.1 % (11.6-16.5) 05/01/25 05:21 Plt Count 450 X10^3/uL (150.0-450.0) 05/01/25 05:21 MPV 9.3 fL (7.4-11.0) 05/01/25 05:21 Neut % (Auto) 77.3 % (42.0-75.0) H 05/01/25 05:21 Lymph % (Auto) 9.0 % (21.0-51.0) L 05/01/25 05:21 [place] % (Auto) 9.3 % (0.0-13.0) 05/01/25 05:21 Eos % (Auto) 4.2 % (0.9-2.9) H 05/01/25 05:21 Baso % (Auto) 0.2 % (0.2-1.0) 05/01/25 05:21 Neut # (Auto) 12.1 x10^3/uL (2.2-4.8) H 05/01/25 05:21 Lymph # (Auto) 1.4 X10^3/uL (1.3-2.9) 05/01/25 05:21 [place] # (Auto) 1.5 x10^3/uL (0.3-0.8) H 05/01/25 05:21 Eos # (Auto) 0.7 x10^3/uL (0.0-0.2) H 05/01/25 05:21 Baso # (Auto) 0.0 X10^3/uL (0.0-0.1) 05/01/25 05:21 Absolute Nucleated RBC 0.0 /100WBC 05/01/25 05:21 Sodium 144 mmol/L (136-145) 05/01/25 05:21 Corrected Sodium 145 mmol/L (136-145) 05/01/25 05:21 Potassium 4.2 mmol/L (3.5-5.1) 05/01/25 05:21 Chloride 109 mmol/L (98-107) H 05/01/25 05:21 Carbon Dioxide 25.1 mmol/L (21-32) 05/01/25 05:21 BUN 27 mg/dL (7-18) H 05/01/25 05:21 Creatinine 0.79 mg/dL (0.55-1.02) 05/01/25 05:21 Est GFR (MDRD) Af Amer > 60 (>60) 05/01/25 05:21 Est GFR (MDRD) Non-Af > 60 (>60) 05/01/25 05:21 Glucose 141 mg/dL (65-99) H 05/01/25 05:21 POC Glucose (mg/dL) 312 mg/dL (65-99) H 05/01/25 12:18 Lactic Acid 1.2 mmol/L (0.4-2.0) 04/27/25 16:26 Calcium 9.0 mg/dL (8.5-10.1) 05/01/25 05:21 Corrected Calcium 10.8 mg/dL (8.5-10.1) H 05/01/25 05:21 Magnesium 1.9 mg/dL (2.0-2.9) L 05/01/25 05:21 Total Bilirubin 0.40 mg/dL (0.2-1.0) 05/01/25 05:21 AST 21 Units/L (15-37) 05/01/25 05:21 ALT 23 Units/L (12-78) 05/01/25 05:21 Alkaline Phosphatase 170 Units/L (46-116) H 05/01/25 05:21 Total Protein 7.3 g/dL (6.4-8.2) 05/01/25 05:21 Albumin 1.8 g/dL (3.4-5.0) L 05/01/25 05:21 Globulin 5.5 g/dL (2.5-4.5) H 05/01/25 05:21 Albumin/Globulin Ratio 0.3 Ratio (1.1-2.1) L 05/01/25 05:21 Specimen Type Catherized urine 04/27/25 12:37 Urine Color Brown (YELLOW) 04/27/25 12:37 Urine Appearance Cloudy (CLEAR) 04/27/25 12:37 Urine pH 5.0 (5.0 - 8.0) 04/27/25 12:37 Ur Specific [place] 1.020 (1.000-1.030) 04/27/25 12:37 Urine Protein 3+ (NEGATIVE) 04/27/25 12:37 Urine Glucose (UA) Negative (NEGATIVE) 04/27/25 12:37 Urine Ketones 1+ (NEGATIVE) 04/27/25 12:37 Urine Blood 5+ (NEGATIVE) 04/27/25 12:37 Urine Nitrite Negative (NEGATIVE) 04/27/25 12:37 Urine Bilirubin 1+ (NEGATIVE) 04/27/25 12:37 Urine Urobilinogen 2+ (NORMAL) 04/27/25 12:37 Ur Leukocyte Esterase 3+ (NEGATIVE) 04/27/25 12:37 Urine RBC 3-5 /HPF (0-3) A 04/27/25 12:37 Urine WBC Tntc /HPF (0-5) A 04/27/25 12:37 Ur Squamous Epith Cells Rare /HPF (NEGATIVE) 04/27/25 12:37 Urine Bacteria Trace /HPF (NEGATIVE) 04/27/25 12:37 Ur Culture Indicated? Yes/culture set up 04/27/25 12:37 Infect Dis PCR Plus See scanned report 04/27/25 12:37 Hospital Course: Patient brought to the ER due to concerns about UTI treated with Macrobid and abnormal labs. Had leukocytosis. Patient demented at baseline. During her hospital stay, culture negative from [facility] with group B strep and E. coli less than 100 CFU each. She seemed to be improving on Zosyn. She will be discharged back to her half-way on ertapenem daily to complete 10 total days antibiotics. White count downtrending and afebrile 24 hours. Elderly female, resting in bed, no acute distress. Head NCAT. Heart regular in rhythm. Lungs clear with shallow respirations. Belly soft, nontender with bowel sounds present. Clean bandage on her sacrum. No edema of her extremities. Confused. Minimally interactive.
== END 2025-05-01 14:25 | DRG 689 ==
LOC: MED/SURG 10:43 → ER 10:43 → OBSVTOIN 11:59 → MED/SURG 13:15
PROVIDERS: ADMIT Internal Medicine; ATTEND Family Medicine
DX: B37.89 Other sites of candidiasis; R06.02 Shortness of breath; E78.5 Hyperlipidemia, unspecified; D50.0 Iron deficiency anemia secondary to blood loss (chronic); Z68.24 Body mass index [BMI] 24.0-24.9, adult; D72.828 Other elevated white blood cell count; K21.9 Gastro-esophageal reflux disease without esophagitis; R79.89 Other specified abnormal findings of blood chemistry; N30.00 Acute cystitis without hematuria; Z29.89 Encounter for other specified prophylactic measures; E44.1 Mild protein-calorie malnutrition; R74.01 Elevation of levels of liver transaminase levels; I10 Essential (primary) hypertension; B96.29 Other Escherichia coli [E. coli] as the cause of diseases classified elsewhere; J44.9 Chronic obstructive pulmonary disease, unspecified; B95.1 Streptococcus, group B, as the cause of diseases classified elsewhere; Z79.4 Long term (current) use of insulin; Z79.899 Other long term (current) drug therapy; Z16.29 Resistance to other single specified antibiotic; L89.153 Pressure ulcer of sacral region, stage 3; R53.1 Weakness; E11.65 Type 2 diabetes mellitus with hyperglycemia; E80.6 Other disorders of bilirubin metabolism; E86.0 Dehydration

== ENCOUNTER 2025-05-01 23:17 | Inpatient (IN) ==
[2025-05-01] MEDS: DUONEB 0.5 MG/3 MG (3 mL) NEB ONE (23:35)
--- NOTE | 2025-05-01 23:44 | DR.NAUSEAF ---
HPI Time Seen Time Seen by Provider: 05/01/25 23:44 HPI Comment HPI Comment: 89-year-old female was brought in from the retirement due to shortness of breath. She was just discharged from this hospital earlier today following treatment for UTI. Apparently she had been coughing at the retirement and saturations dropped down to the 80s so they rushed her to the ER for further evaluation COVID-19 Coronavirus risk:travel/contact w/high risk person: No Has patient experienced Coronavirus symptoms: No Coronavirus symptoms experienced: Coughing and Shortness of Breath Reviewed Nurses Notes Reviewed: Yes PMH PMH Past Medical History: Anemia, Arthritis, COPD, Dementia, Depression, Diabetes, GERD, Hypertension and Sleep Apnea Past Surgical History: Yes Surgical History: Ortho Surgery Family History Family Medical History: Diabetes Mellitus and Hypertension Social History Do you use any recreational Drugs:: No ROS Review of Systems Constitutional: Loss of Appetite; negative Chills, Fever or Irritable Eyes: No Symptoms Reported ENTM: No Symptoms Reported Respiratoy: Short of Breath Cardiovascular: negative Edema, Syncope or Cyanosis Gastrointestinal/Abdominal: No Symptoms Reported; negative Abdominal Pain, Constipation or Nausea Genitourinary: No Symptoms Reported and Frequency; negative Dysuria Neurological: Anxiety and Depressed Musculoskeletal: See HPI, Back Pain and Joint Pain Integumentary: No Symptoms Reported Hematologic/Lymphatic: Anemia and Easy Bruising Psychiatric: See HPI, Depression and Other (Dementia) All Other Systems: Reviewed and Negative Unable to Obtain Due To: Dementia PE Vital Signs Vitals: Vital Signs Temperature 98.6 F Pulse Rate 104 Pulse Rate 106 Pulse Rate 109 Pulse Rate 110 Pulse Rate 112 Pulse Rate 117 Pulse Rate 117 Pulse Rate 116 Pulse Rate 112 Pulse Rate 113 Pulse Rate 113 Pulse Rate 111 Respiratory Rate 28 Respiratory Rate 35 Respiratory Rate 35 Respiratory Rate 42 Respiratory Rate 34 Respiratory Rate 39 Respiratory Rate 36 Respiratory Rate 41 Respiratory Rate 42 Respiratory Rate 39 Respiratory Rate 42 Respiratory Rate 43 Blood Pressure 146/81 Blood Pressure 146/81 Blood Pressure 149/88 Blood Pressure 139/94 Blood Pressure 139/94 O2 Sat by Pulse Oximetry 100 O2 Sat by Pulse Oximetry 95 O2 Sat by Pulse Oximetry 98 O2 Sat by Pulse Oximetry 99 O2 Sat by Pulse Oximetry 99 O2 Sat by Pulse Oximetry 98 O2 Sat by Pulse Oximetry 99 O2 Sat by Pulse Oximetry 99 O2 Sat by Pulse Oximetry 99 O2 Sat by Pulse Oximetry 100 O2 Sat by Pulse Oximetry 70 O2 Sat by Pulse Oximetry 91 General Limitations: Altered Mental Status and Physical Limitation General Appearance: Alert and In Distress (mild resp. distress, coughing) Head Head Exam: Normal Inspection, Atraumatic and Normocephalic Eyes Eye exam: Normal Appearance and EOMI; negative Scleral Icterus or Nystagmus ENT ENT Exam: Normal Exam, Normal Oropharynx and Normal External Ear Exam Neck Neck Exam: Normal Inspection, Full ROM and Trachea Midline Chest Chest Inspection: Symmetric Chest Wall Rise Respiratory Respiratory Exam: Respiratory Distress (mild, coughing); negative Chest Wall Tenderness Respiratory Exam: Bilateral: Rales and Bilateral: Rhonchi Cardiovascular Cardiovascular Exam: Regular Rate and Normal Rhythm Extremities Extremities Exam: Other (flexion contractures of arms and legs) Neurologic Neurological Exam: Alert Psychiatric Psychiatric Exam: Depressed and Anxious Skin Skin Exam: Warm, Dry and Normal Color MDM Additional Information Obtained Additional Information Obtained From: Old Records and Family (Spoke with her daughter Francheska Olmos, verified DNR, comfort measures only; requesting that she be re-admitted and consulta tube and manifold builder regarding elevated troponin) Differential Diagnosis Differential Diagnosis: Considerations may Include:: Diabetes/DKA and Other Differential Diagnosis Comment: Aspiration, PNA, Respiratory Insufficiency, Dysphagia from CVA COURSE Reevaluation 1st: Improved Consultation Called: 01:45 Call Returned: 01:46 Consultation Comments: DR. Ch--ok to admit for obs Education/Counseling Education/Counseling: Patient, Family, Education and Counseling Educated On: Treatment and Diagnosis ROR Labs Reviewed Laboratory Results Reviewed?: Yes 05/01/25 23:35 05/01/25 23:35 Laboratory: WBC 17.1 X10^3/uL (3.6-10.0) H 05/01/25 23:35 RBC 3.98 X10^6/uL (3.5-5.4) 05/01/25 23:35 Hgb 10.5 g/dL (12.0-16.0) L 05/01/25 23:35 Hct 32.8 % (36.0-47.0) L 05/01/25 23:35 MCV 82.3 fL (80.0-100.0) 05/01/25 23:35 MCH 26.4 pg (27.0-34.0) L 05/01/25 23:35 MCHC 32.0 g/dL (33.0-35.0) L 05/01/25 23:35 RDW 15.2 % (11.6-16.5) 05/01/25 23:35 Plt Count 638 X10^3/uL (150.0-450.0) H 05/01/25 23:35 MPV 10.0 fL (7.4-11.0) 05/01/25 23:35 Neut % (Auto) 77.4 % (42.0-75.0) H 05/01/25 23:35 Lymph % (Auto) 10.5 % (21.0-51.0) L 05/01/25 23:35 [place] % (Auto) 7.3 % (0.0-13.0) 05/01/25 23:35 Eos % (Auto) 2.7 % (0.9-2.9) 05/01/25 23:35 Baso % (Auto) 2.1 % (0.2-1.0) H 05/01/25 23:35 Neut # (Auto) 13.2 x10^3/uL (2.2-4.8) H 05/01/25 23:35 Lymph # (Auto) 1.8 X10^3/uL (1.3-2.9) 05/01/25 23:35 [place] # (Auto) 1.2 x10^3/uL (0.3-0.8) H 05/01/25 23:35 Eos # (Auto) 0.5 x10^3/uL (0.0-0.2) H 05/01/25 23:35 Baso # (Auto) 0.4 X10^3/uL (0.0-0.1) H 05/01/25 23:35 Absolute Nucleated RBC 0.1 /100WBC 05/01/25 23:35 Sample Site Lbra 05/02/25 00:33 ABG pH 7.470 (7.35-7.45) H 05/02/25 00:33 ABG pCO2 31.0 mmHg (35.0-45.0) L 05/02/25 00:33 ABG pO2 82.0 mmHg (80.0-100.0) 05/02/25 00:33 ABG HCO3 22.6 mmol/L (22-26) 05/02/25 00:33 ABG O2 Saturation 97.0 % (90-100) 05/02/25 00:33 ABG Base Excess -0.3 mmol/L (-2.0-2.0) 05/02/25 00:33 [place]onal[place] Test Na 05/02/25 00:33 A-a Gradient 107.0 mmHg 05/02/25 00:33 FiO2 32.0 05/02/25 00:33 Blood Gas Comments Sheela abg well-mtf 05/02/25 00:33 Sodium 143 mmol/L (136-145) 05/01/25 23:35 Corrected Sodium 149 mmol/L (136-145) H 05/01/25 23:35 Potassium 4.7 mmol/L (3.5-5.1) 05/01/25 23:35 Chloride 106 mmol/L (98-107) 05/01/25 23:35 Carbon Dioxide 25.3 mmol/L (21-32) 05/01/25 23:35 BUN 25 mg/dL (7-18) H 05/01/25 23:35 Creatinine 0.89 mg/dL (0.55-1.02) 05/01/25 23:35 Est GFR (MDRD) Af Amer > 60 (>60) 05/01/25 23:35 Est GFR (MDRD) Non-Af > 60 (>60) 05/01/25 23:35 Glucose 348 mg/dL (65-99) H 05/01/25 23:35 Lactic Acid 2.0 mmol/L (0.4-2.0) 05/02/25 00:15 Calcium 9.4 mg/dL (8.5-10.1) 05/01/25 23:35 Corrected Calcium 10.9 mg/dL (8.5-10.1) H 05/01/25 23:35 Total Bilirubin 0.20 mg/dL (0.2-1.0) 05/01/25 23:35 AST 34 Units/L (15-37) 05/01/25 23:35 ALT 28 Units/L (12-78) 05/01/25 23:35 Alkaline Phosphatase 201 Units/L (46-116) H 05/01/25 23:35 Creatine Kinase 127 Units/L (26-192) 05/01/25 23:35 Troponin I High Sens 268.1 ng/L (4.0-60.0) H* 05/01/25 23:35 Total Protein 8.9 g/dL (6.4-8.2) H 05/01/25 23:35 Albumin 2.1 g/dL (3.4-5.0) L 05/01/25 23:35 Globulin 6.8 g/dL (2.5-4.5) H 05/01/25 23:35 Albumin/Globulin Ratio 0.3 Ratio (1.1-2.1) L 05/01/25 23:35 XRAY XRAY Interpreted by: Self X-ray Results: Portable CXR: no acute cardiopulmonary process; same mild cardiomegaly EKG Rate: 108 Rhythm: ST ST: Nonsp Opioid Opioid Risk Tool Age (Koby box if 16-45): No History of Preadolescent Sexual Abuse: No Total: 0 Total Score Risk Category: Low Risk Copyright: [facility] predicting aberrant behaviors Discharge Plan Diagnosis Discharge Problem: Hypoxemia, Elevated troponin, Dysphagia as late effect of cerebrovascular disease, DNR (do not resuscitate), Dementia Hospital Course Hospital Course: Patient is brought in from the retirement due to coughing spells and subsequent hypoxemia, for which she responded well to suctioning of secretions and nebulization treatments. O2 sats improved to 94 to 96% on 2 L per nasal cannula after suctioning and nebulization treatments. Chest x-ray did not show any acute cardiopulmonary process. EKG showed sinus tachycardia with no acute ischemic changes but her troponin levels elevated. Further discussion with her main POA her daughter Francheska Olmos reiterated for DNR status and want only comfort measures. However she requested the their mother be admitted to the hospital and be consulted on by tube and manifold builder regarding this elevated troponin levels. They do not want any aggressive or heroic measures regarding possible CAD or worsening atherosclerosis. They also do not want any reinstitution of artificial feedings via gastrostomy tube. Discussed with Dr. 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 Elevated Troponin Level DNR Condition: Stable Prescription drug monitoring program results: PDMP reviewed and no concerns identified Prescriptions: No Action tramadol 50 mg tablet 50 mg PO Q6H MDD 4 PRN (Reason: pain) 30 Days Qty: 120 0RF fentanyl 25 mcg/hr patch 72 hour 1 patch transdermal Q72H MDD 1 30 Days Qty: 15 0RF morphine concentrate 100 mg/5 mL (20 mg/mL) solution 2 mg PO DAILY MDD 4mg PRN (Reason: pain) 30 Days Qty: 30 0RF pantoprazole 40 mg tablet,delayed release (DR/EC) 40 mg PO BID Novolin R Regular U100 Insulin 100 unit/mL Solution See Rx Instructions .ROUTE .COMPLEX Rx Instructions: SLIDING SCALE lidocaine 5 % Cream 1 applic TOPICAL Q6H PRN Rx Instructions: Apply to knees topically every 6 hours as needed for pain primidone 50 mg tablet 50 mg PO BID ketotifen fumarate 0.025 % (0.035 %) drops 1 drp OPHTHALMIC (EYE) BID Patient Comments: [NO ORIGINAL SIG] Rx Instructions: bilateral eyes diclofenac sodium 1 % gel 1 ea TOPICAL TID Patient Comments: [NO ORIGINAL SIG] Rx Instructions: Apply to knees topically every 8 hours as needed for pain acetaminophen [Tylenol] 325 mg Tablet 650 mg PO Q6H PRN albuterol sulfate 2.5 mg /3 mL (0.083 %) solution for nebulization 2.5 mg inhalation ACHS Patient Comments: [NO ORIGINAL SIG] allopurinol 100 mg tablet 100 mg PO QDAY guaifenesin 100 mg/5 mL Liquid 200 mg PO Q6H PRN azelastine 137 mcg (0.1 %) spray,non-aerosol 1 spray INTRANASAL TID Patient Comments: [NO ORIGINAL SIG] zinc Tablet,Chewable 1 tab PO DAILY gabapentin 300 mg Capsule 300 mg PO BID amlodipine [Norvasc] 10 mg Tablet 10 mg PO DAILY montelukast 10 mg Tablet 10 mg PO DAILY ascorbic acid (vitamin C) 100 mg Tablet 100 mg PO QDAY megestrol 400 mg/10 mL (40 mg/mL) suspension 40 mg PO BID nystatin 100,000 unit/mL Suspension 5 ml PO TID Rx Instructions: swish and swallow acetaminophen 650 mg Suppository 650 mg CA BID ketorolac 10 mg Tablet 10 mg PO QHS Rx Instructions: maximum total duration of 5 days from all oral, intranasal, or parenteral formulations alum-mag hydroxide-simeth 400-400-40 mg/5 mL Suspension 20 ml PO DAILY banana oenxof-b-umzlnvbxfiuob. Powder In Packet 2 ea PO TID Rx Instructions: 2 packets by mouth TID for diarrhea add to glucerna nitrofurantoin monohyd/m-cryst 100 mg capsule 1 cap PO BID fluticasone propion-salmeterol [Advair HFA] 115-21 mcg/actuation Hfa Aerosol Inhaler 2 puff INHALATION BID amino acids-protein hydrolys 15-101 gram-kcal/30 mL Liquid 30 ea PO BID Rx Instructions: 30ml insulin degludec [Tresiba U-100 Insulin] 100 unit/mL Solution 15 unit SUBCUT QDAY Glucerna 1.5 Ramiro 0.08-1.5 gram-kcal/mL Liquid 1 ea PO QID ertapenem 1 gram Recon Soln 1 g IV QDAY Qty: 6 0RF Health Concerns: Post Hospitalization: new medications and changes needed to prevent readmission or further decline. Pt educated and given instructions on all concerns. Plan of Treatment: Continue with present treatment and follow up plan. Pt is to keep follow up appointment as instructed and take medications as ordered. Follow ups/Referrals Follow ups/Referrals: Omi Easton MD [Primary Care Provider, Family Practice] - 3 days Instructions Stand Alone Forms: Find Help Web Site Print Language: PORTUGUESE
[2025-05-02 00:24] LABS: COR CA(FOR HYPOALB) 10.9 mg/dL (8.5-10.1); COR NA(FOR HYPERGLY) 149 mmol/L (136-145); CREATININE 0.89 mg/dL (0.55-1.02); eGFR NON BLACK RACES > 60 (>60)
[2025-05-02 00:45] LABS: ABG BASE EXCESS -0.3 mmol/L (-2.0-2.0); ABG HCO3 22.6 mmol/L (22-26); ABG OXYGEN SATURATION 97.0 % (90-100); ABG PCO2 31.0 mmHg (35.0-45.0); ABG PH 7.470 (7.35-7.45); ABG PO2 82.0 mmHg (80.0-100.0)
[2025-05-02 01:03] LABS: MEAN PLATELET VOLUME 10.0 fL (7.4-11.0); RED CELL DISTRIBUTION WIDTH 15.2 % (11.6-16.5)
--- NOTE | 2025-05-02 01:08 | EKG ---
Test Reason : SOB Blood Pressure : */* mmHG Vent. Rate : 108 BPM Atrial Rate : 108 BPM P-R Int : 146 ms QRS Dur : 68 ms QT Int : 326 ms P-R-T Axes : -21 79 96 degrees QTc Int : 436 ms Sinus tachycardia Low voltage QRS Nonspecific ST abnormality Abnormal ECG When compared with ECG of 16-NOV-2024 09:50, Criteria for Septal infarct are no longer present Non-specific change in ST segment in Lateral leads Confirmed by Javier Pimentel MD ([id number]) on 05/02/2025 7:11:40 AM Referred By: Confirmed By: Javier Pimentel MD
[2025-05-02] MEDS ORDERED: ROBITUSSIN (PLAIN) PO PRN (04:46)
[2025-05-02] MEDS ORDERED: LIDOCAINE 5% TOP PRN (04:46)
[2025-05-02] MEDS ORDERED: MORPHINE SULFATE ORAL SOLN UDC PO PRN (04:46)
[2025-05-02] MEDS ORDERED: TYLENOL 325 MG TAB PO PRN (04:46)
[2025-05-02] MEDS ORDERED: PHARMACY CONSULT LTC MEDICATIONS XX SCH (05:00)
[2025-05-02] MEDS: TYLENOL SUPP 650 MG PR SCH (05:12)
[2025-05-02] MEDS: ASTELIN NASAL SPRAY ENOSTRIL SCH (05:42)
[2025-05-02] MEDS: NovoLIN R (or HumuLIN R) SC SCH (06:19)
[2025-05-02] MEDS ORDERED: PROVENTIL NEB TX 0.083% 2.5MG/ 3ML IN SCH (06:30)
--- NOTE | 2025-05-02 08:04 | RAD ---
EXAMINATION: CHEST, 1 VIEW HISTORY: VOMITING, SOB, POSSIBLE ASPIRATION ; HTN, DM, COPD, GERD, SLEEP APNEA SX: ORTHO . COMPARISON STUDY: 11/16/2024 TECHNIQUE: One view FINDINGS: Heart size is normal for technique. Poor inspiration. No acute infiltrates. No pneumothorax. Hilar and mediastinal structures and bony structures are unchanged. Tortuous aorta. Retrocardiac hiatal hernia. EKG leads overlie the chest. Slight increased interstitial markings may represent chronic lung disease. IMPRESSION: No acute findings. THIS IS AN ELECTRONICALLY VERIFIED FINAL REPORT 05/02/2025 8:00 AM - Electronically signed by Kashif Dodw MD
[2025-05-02] MEDS: PROVENTIL NEB TX 0.083% 2.5MG/ 3ML NEB SCH (08:10)
[2025-05-02] MEDS: PULMICORT NEB TX 0.5 MG NEB SCH (08:10)
[2025-05-02] MEDS ORDERED: [UNRECOGNIZED DRUG - OTHER] PO SCH (09:00)
[2025-05-02] MEDS ORDERED: AMINO ACIDS PROTEIN HYDROLYS PO SCH (09:00)
[2025-05-02] MEDS ORDERED: INVanz INJ 1 GRAM VIAL IV SCH (09:00)
[2025-05-02] MEDS ORDERED: PATIENT'S HOME MEDICATION (Fluticasone Propion-Salmeterol [Advair Hfa] 115-21 mcg/actuatio IN SCH (09:00)
[2025-05-02] MEDS ORDERED: ALUM MAG HYDROXIDE SIMETH PO SCH (09:00)
[2025-05-02] MEDS ORDERED: ZINC PO SCH (09:00)
[2025-05-02] MEDS ORDERED: MACROBID CAP 100 MG EXT REL PO SCH (09:00)
[2025-05-02] MEDS ORDERED: NUT TX GLUC INTOL LF SOY FIBER PO SCH (09:00)
[2025-05-02] MEDS ORDERED: [UNRECOGNIZED DRUG - OTHER] PO SCH (09:00)
[2025-05-02] MEDS: INVanz INJ 1 GRAM VIAL 1 G in NS 100 ML IV 100 ML IV SCH (09:39)
[2025-05-02] MEDS: TRESIBA U-100 INSULIN SC SCH (09:39)
[2025-05-02] MEDS ORDERED: PHARMACY CONSULT XX SCH (10:00)
[2025-05-02] MEDS ORDERED: ZOFRAN INJ 4 MG VIAL IVP PRN (10:19)
--- NOTE | 2025-05-02 10:24 | DR.H&P ---
H&P History & Physical for Day of: H&P Date: 05/02/25 Chief Complaint Chief Complaint: dyspnea History of Present Illness History of Present Illness: Patient is a 89-year-old female with a past medical history of dementia, type 2 diabetes, hypertension, COPD, anemia and immobility who presented from [facility] few hours after she was discharged from the hospital. Staff noticed that she was in the 80s. She was transferred to the ER for further evaluation. ER workup showed elevated WBC, troponin 268.1, EKG with no acute ST changes. Chest x-ray did not show any acute changes. Treatment plan was discussed with patient's POA Ms. Olmos and she wanted the patient to be admitted for monitoring. She does not want patient to have any further interventions for cardiovascular disease including cath. Patient seen at bedside this morning. Denies any shortness of breath or chest pain. She reports having some nausea. Labs/imaging reviewed: - WBC 17.1 hemoglobin 10.5 platelets 638 creatinine 0.89 potassium 4.7 sodium 143 - Chest CT done yesterday prior to discharge reviewed: Shows gallbladder thickening concerning for cholecystitis. Plan: Admit to [facility]. Order gallbladder ultrasound. NPO status. Consult Dr. Sheets with results. Resume home medications. Continue IV antibiotics. Zofran as needed. Replace electrolytes as per protocol. Monitor a.m. labs and imaging. Past Medical History Past Medical History: Anemia, Arthritis, COPD, Dementia, Depression, Diabetes, GERD, Hypertension and Sleep Apnea Past Surgical History Surgical History: Ortho Surgery Family History Family Medical History: Diabetes Mellitus and Hypertension Social History Does patient currently use any type of tobacco product: No Type of Tobacco Use: None Does any household member use tobacco: No Alcohol Use: None Drug Use: None Medications Home Medications: Home Medications Medication Instructions Recorded Confirmed Type amlodipine 10 mg tablet (Norvasc) 10 mg PO DAILY 02/1505/02/25 History gabapentin 300 mg capsule 300 mg PO BID 02/16/2005/02 History insulin regular human 100 unit/mL See Rx Instructions .Route .COMPLEX 06/16/22 05/02/25 History injection solution (Novolin R Regular U-100 Insulin) pantoprazole 40 mg tablet,delayed 40 mg PO BID 2 05/02/25 History release lidocaine 5 % topical cream 1 applic topical Q6H PRN 0 06/25/22 05/02/25 History montelukast 10 mg tablet 10 mg PO DAILY 08/29/2204/12 History diclofenac sodium 1 % topical gel 1 ea topical TID 05/02/25 History ketotifen fumarate 0.025 % (0.035 1 drp ophthalmic (ey e) BID 06/10/23 05/02/25 History %) eye drops primidone 50 mg tablet 50 mg PO BID 06/10/23 History ascorbic acid (vitamin C) 100 mg 100 mg PO QDAY 05/02/25 History tablet acetaminophen 325 mg tablet 650 mg PO Q6H PRN 08/02/24 05/02/25 History (Tylenol) albuterol sulfate 2.5 mg/3 mL 2.5 mg inhalation ACHS 1 05/02/25 History (0.083 %) solution for nebulization allopurinol 100 mg tablet 100 mg PO QDAY 08/02/2404/12 History azelastine 137 mcg (0.1 %) nasal 1 spray intranasal TI D 08/02/24 05/02/25 History spray guaifenesin 100 mg/5 mL oral liquid 200 mg PO Q6H PRN 08/02/24 05/02/25 History zinc 1 tab PO DAILY 08/02/2404/12 History acetaminophen 650 mg rectal 650 mg DC BID 04/27/25 History suppository aluminum-mag hydroxide-simethicone 20 ml PO DAILY 04/1105/02/25 History 400 mg-400 mg-40 mg/5 mL oral susp amino acids-protein hydrolysate 15 30 ea PO BID 05/02/25 History gram-101 kcal/30 mL oral liquid banana 2 ea PO TID 04/27/25 5 History flakes-transgalactooligosaccharide oral powder packet fluticasone propionate 115 2 puff inhalation BID 04/2705/02/25 History mcg-salmeterol 21 mcg/actuation HFA inhaler (Advair HFA) insulin degludec 100 unit/mL 15 unit subcut QDAY 04/2705/02/25 History subcutaneous solution (Tresiba U-100 Insulin) ketorolac 10 mg tablet 10 mg PO QHS 04/27/25 History megestrol 400 mg/10 mL (40 mg/mL) 40 mg PO BID 5 05/02/25 History oral suspension nitrofurantoin 1 cap PO BID 04/27/25 History monohydrate/macrocrystals 100 mg capsule nutrition tx glu 1 ea PO QID 04/27/25 5 History intol,lac-free,soy-fiber 0.08 gram-1.5 kcal/mL liquid (Glucerna 1.5 Ramiro) nystatin 100,000 unit/mL oral 5 ml PO TID 04/27/25 History suspension Allergies Allergies Allergy/AdvReac Type Severity Reaction Status Date / Time Sulfa (Sulfonamide Allergy Unknown Verified 04/27/25 11:01 Antibiotics) Labs 05/01/25 23:35 05/01/25 23:35 Labs: Laboratory WBC 17.1 X10^3/uL (3.6-10.0) H 05/01/25 23:35 RBC 3.98 X10^6/uL (3.5-5.4) 05/01/25 23:35 Hgb 10.5 g/dL (12.0-16.0) L 05/01/25 23:35 Hct 32.8 % (36.0-47.0) L 05/01/25 23:35 MCV 82.3 fL (80.0-100.0) 05/01/25 23:35 MCH 26.4 pg (27.0-34.0) L 05/01/25 23:35 MCHC 32.0 g/dL (33.0-35.0) L 05/01/25 23:35 RDW 15.2 % (11.6-16.5) 05/01/25 23:35 Plt Count 638 X10^3/uL (150.0-450.0) H 05/01/25 23:35 MPV 10.0 fL (7.4-11.0) 05/01/25 23:35 Neut % (Auto) 77.4 % (42.0-75.0) H 05/01/25 23:35 Lymph % (Auto) 10.5 % (21.0-51.0) L 05/01/25 23:35 [place] % (Auto) 7.3 % (0.0-13.0) 05/01/25 23:35 Eos % (Auto) 2.7 % (0.9-2.9) 05/01/25 23:35 Baso % (Auto) 2.1 % (0.2-1.0) H 05/01/25 23:35 Neut # (Auto) 13.2 x10^3/uL (2.2-4.8) H 05/01/25 23:35 Lymph # (Auto) 1.8 X10^3/uL (1.3-2.9) 05/01/25 23:35 [place] # (Auto) 1.2 x10^3/uL (0.3-0.8) H 05/01/25 23:35 Eos # (Auto) 0.5 x10^3/uL (0.0-0.2) H 05/01/25 23:35 Baso # (Auto) 0.4 X10^3/uL (0.0-0.1) H 05/01/25 23:35 Absolute Nucleated RBC 0.1 /100WBC 05/01/25 23:35 Sample Site Lbra 05/02/25 00:33 ABG pH 7.470 (7.35-7.45) H 05/02/25 00:33 ABG pCO2 31.0 mmHg (35.0-45.0) L 05/02/25 00:33 ABG pO2 82.0 mmHg (80.0-100.0) 05/02/25 00:33 ABG HCO3 22.6 mmol/L (22-26) 05/02/25 00:33 ABG O2 Saturation 97.0 % (90-100) 05/02/25 00:33 ABG Base Excess -0.3 mmol/L (-2.0-2.0) 05/02/25 00:33 Ronaldo Test Na 05/02/25 00:33 A-a Gradient 107.0 mmHg 05/02/25 00:33 FiO2 32.0 05/02/25 00:33 Blood Gas Comments Sheela abg well-mtf 05/02/25 00:33 Sodium 143 mmol/L (136-145) 05/01/25 23:35 Corrected Sodium 149 mmol/L (136-145) H 05/01/25 23:35 Potassium 4.7 mmol/L (3.5-5.1) 05/01/25 23:35 Chloride 106 mmol/L (98-107) 05/01/25 23:35 Carbon Dioxide 25.3 mmol/L (21-32) 05/01/25 23:35 BUN 25 mg/dL (7-18) H 05/01/25 23:35 Creatinine 0.89 mg/dL (0.55-1.02) 05/01/25 23:35 Est GFR (MDRD) Af Amer > 60 (>60) 05/01/25 23:35 Est GFR (MDRD) Non-Af > 60 (>60) 05/01/25 23:35 Glucose 348 mg/dL (65-99) H 05/01/25 23:35 POC Glucose (mg/dL) 194 mg/dL (65-99) H 05/02/25 06:00 Lactic Acid 2.0 mmol/L (0.4-2.0) 05/02/25 00:15 Calcium 9.4 mg/dL (8.5-10.1) 05/01/25 23:35 Corrected Calcium 10.9 mg/dL (8.5-10.1) H 05/01/25 23:35 Total Bilirubin 0.20 mg/dL (0.2-1.0) 05/01/25 23:35 AST 34 Units/L (15-37) 05/01/25 23:35 ALT 28 Units/L (12-78) 05/01/25 23:35 Alkaline Phosphatase 201 Units/L (46-116) H 05/01/25 23:35 Creatine Kinase 127 Units/L (26-192) 05/01/25 23:35 Troponin I High Sens 268.1 ng/L (4.0-60.0) H* 05/01/25 23:35 Total Protein 8.9 g/dL (6.4-8.2) H 05/01/25 23:35 Albumin 2.1 g/dL (3.4-5.0) L 05/01/25 23:35 Globulin 6.8 g/dL (2.5-4.5) H 05/01/25 23:35 Albumin/Globulin Ratio 0.3 Ratio (1.1-2.1) L 05/01/25 23:35 Review of Systems Constitutional: No Symptoms Reported Eyes: No Symptoms Reported ENT: No Symptoms Reported Respiratory: Shortness of Breath Cardiovascular: No Symptoms Reported Gastrointestinal: Nausea and Abdominal Pain Genitourinary: No Symptoms Reported Musculoskeletal: No Symptoms Reported Skin: No Symptoms Reported Neurological: No Symptoms Reported Physical Exam Vital Signs: Vital Signs Temperature 98.4 F Temperature 97.6 F Pulse Rate [Apical] 86 Pulse Rate [Apical] 93 Pulse Rate 90 Pulse Rate 101 Pulse Rate 101 Respiratory Rate 19 Respiratory Rate 18 Respiratory Rate 22 Respiratory Rate 30 Respiratory Rate 29 Blood Pressure [Left Arm] 98/64 Blood Pressure [Left Arm] 127/67 Blood Pressure 135/72 O2 Sat by Pulse Oximetry 97 O2 Sat by Pulse Oximetry 99 O2 Sat by Pulse Oximetry 97 O2 Sat by Pulse Oximetry 100 O2 Sat by Pulse Oximetry 94 Oriented: Normal Respiratory: Diminished Throughout Cardiovascular: Normal Auscultation: Bowel Sounds: Normal Tenderness: RUQ and Mild Skin: Normal Musculoskeletal: Normal Psychiatric: Normal Mood Description: Calm Affect: Normal Speech Pattern: Clear and Appropriate Assessment/Plan (1) Elevated troponin: Status: Acute (2) Hypoxemia: Status: Acute (3) Cholecystitis: Status: Acute (4) Anemia: Qualifiers: 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
[2025-05-02] MEDS: SINGULAIR TAB 10 MG PO SCH (10:25)
[2025-05-02] MEDS: PROTONIX TAB 40 MG PO SCH (10:25)
[2025-05-02] MEDS: NEURONTIN CAP 300 MG PO SCH (10:25)
[2025-05-02] MEDS: ZINC SULFATE PO SCH (10:26)
[2025-05-02] MEDS: ASTELIN NASAL SPRAY ENOSTRIL ONE (10:26)
[2025-05-02] MEDS: NS 250 ML IV 250 ML IV ONE (10:26)
[2025-05-02] MEDS: LOVENOX INJ 40 MG SYR SC SCH (10:40)
[2025-05-02] MEDS: ZADITOR EYE DROPS OP SCH (10:40)
[2025-05-02] MEDS ORDERED: BUTT CREAM (COMPOUND) TOP PRN (12:35)
--- NOTE | 2025-05-02 13:06 | US ---
EXAM: Right upper quadrant ultrasound HISTORY: Right upper quadrant pain, cholecystitis TECHNIQUE: Multiple grayscale sonographic images were obtained. COMPARISON: 07/30/2023 FINDINGS: L iver is normal in size and configuration and without cyst, mass, or biliary ductal dilatation. Portal venous blood flow was hepatopetal. Hepatic artery was patent. Hepatic venous blood flow was hepatofugal. Gallbladder is distended. Multiple stones are present. No definite gallbladder wall thickening was identified however there is pericholecystic fluid present. Cholecystitis may be present. Nuclear medicine biliary scan would be of further diagnostic value in assessing cystic duct patency. Right kidney measured 8.8 cm in length. Right kidney is unobstructed. No hydro nephrosis or stones identified. Pancreas was obscured by overlying bowel gas. IMPRESSION: Distended gallbladder containing multiple calculi and demonstrating a significant amount of pericholecystic fluid. Although the gallbladder wall does not appear thickened cholecystitis may well be present. Nuclear medicine biliary scan may be of further diagnostic value in assessing cystic duct patency. Surgical evaluation is recommended. THIS IS AN ELECTRONICALLY VERIFIED FINAL REPORT 05/02/2025 1:03 PM - Electronically signed by Iain Espinoza MD
[2025-05-02] MEDS ORDERED: ASTELIN NASAL SPRAY ENOSTRIL ONE (13:34)
[2025-05-02] MEDS: ULTRAM PO PRN (18:13)
[2025-05-02] MEDS: NovoLIN R (or HumuLIN R) SUBCUT PRN (20:42)
[2025-05-03 06:18] LABS: MEAN PLATELET VOLUME 9.0 fL (7.4-11.0); RED CELL DISTRIBUTION WIDTH 15.3 % (11.6-16.5)
[2025-05-03 06:40] LABS: COR CA(FOR HYPOALB) 10.6 mg/dL (8.5-10.1); CREATININE 0.73 mg/dL (0.55-1.02); eGFR NON BLACK RACES > 60 (>60)
[2025-05-03] MEDS ORDERED: CONSULT PHARMACY - POTASSIUM & MAGNESIUM XX SCH (08:00)
[2025-05-03] MEDS ORDERED: PHARMACY CONSULT - TPN XX SCH (15:00)
[2025-05-03] MEDS: CLINIMIX 4.25%-5% 1,000 ML with MVI INJ (ADULT) 10 ML, MAGNESIUM SULFATE 50% INJ VIAL 1 G IV SCH (15:16)
[2025-05-03] MEDS: DRUG FILTER EXTENSION SET ONE (15:50)
--- NOTE | 2025-05-03 17:19 | NOTE.SOAP ---
Soap Note Note for Day of Date of Exam: 05/03/25 Subjective Data Subjective Data: Patient seen with nurse and daughter at bedside. Had a long discussion about possible TPN. Had a discussion about how long we would not dissipate patient to be in the hospital. Surgery not recommending a cholecystectomy given patient's overall status and I and family agree. Objective Data Objective Data: Elderly female with chronic contractures in no acute distress. Heart regular rate and rhythm. Lungs are clear with some referred upper airway noises. Bowel sounds are present. Minimal tenderness in right upper quadrant. Resting comfortably overall. Assessment Assessment: Acute cholecystitis Stage III sacral decubitus Poor p.o. intake Advanced dementia Plan Plan: Pharmacy consult for TPN while inpatient. Continue IV ertapenem. Appreciate surgery input for cholecystitis and sacral decubitus. Continue supportive care.
[2025-05-03] MEDS: SNACK - Diabetic Appropriate PO SCH (20:09)
[2025-05-04 06:33] LABS: MEAN PLATELET VOLUME 9.1 fL (7.4-11.0); RED CELL DISTRIBUTION WIDTH 15.4 % (11.6-16.5)
[2025-05-04 06:37] LABS: COR CA(FOR HYPOALB) 10.3 mg/dL (8.5-10.1); COR NA(FOR HYPERGLY) 146 mmol/L (136-145); CREATININE 0.73 mg/dL (0.55-1.02); eGFR NON BLACK RACES > 60 (>60)
--- NOTE | 2025-05-04 08:23 | DR.PROGNOT ---
HOSPITAL PROGRESS NOTE Progress Note for Day of: Progress Note Date: 05/04/25 Chief Complaint Chief Complaint: Patient is alert, oral intake is poor, minimal abdominal pain. White count 13.5, hemoglobin 8.4, BUN 27, creatinine 0.7, blood sugar 182, albumin 1.7 with normal liver function tests. Abdomen is soft and flat with normal bowel sounds. Past Medical Family Social History Allergies: Allergies Sulfa (Sulfonamide Antibiotics) Allergy (Unknown, Verified 04/27/25 11:01) per [facility] Vital Signs Vital Signs: Vital Signs Temperature 98.4 F Temperature 98.1 F Pulse Rate [Apical] 79 Pulse Rate [Apical] 82 Respiratory Rate 18 Respiratory Rate 18 Blood Pressure [Left Arm] 126/59 Blood Pressure [Left Arm] 121/81 O2 Sat by Pulse Oximetry 99 O2 Sat by Pulse Oximetry 94 Physical Exam Oriented: Normal Eyes: Normal Ear: Normal Nose: Normal Throat: Normal Respiratory: Normal GI:Auscultation: Normal GI:Palpation: Normal GI: Tenderness: RUQ and Mild Skin: Other (Stable sacral ulcer with a slow healing, no active infection.) Musculoskeletal: Normal Psychiatric: Normal Mood Description: Calm Affect: Normal Speech Pattern: Clear Laboratory and Diagnostics 05/04/25 05:24 05/04/25 05:24 Labs: Laboratory WBC 13.5 X10^3/uL (3.6-10.0) H 05/04/25 05:24 RBC 3.23 X10^6/uL (3.5-5.4) L 05/04/25 05:24 Hgb 8.4 g/dL (12.0-16.0) L 05/04/25 05:24 Hct 26.4 % (36.0-47.0) L 05/04/25 05:24 MCV 81.6 fL (80.0-100.0) 05/04/25 05:24 MCH 26.1 pg (27.0-34.0) L 05/04/25 05:24 MCHC 32.0 g/dL (33.0-35.0) L 05/04/25 05:24 RDW 15.4 % (11.6-16.5) 05/04/25 05:24 Plt Count 635 X10^3/uL (150.0-450.0) H 05/04/25 05:24 MPV 9.1 fL (7.4-11.0) 05/04/25 05:24 Neut % (Auto) 75.1 % (42.0-75.0) H 05/04/25 05:24 Lymph % (Auto) 13.6 % (21.0-51.0) L 05/04/25 05:24 [place] % (Auto) 6.8 % (0.0-13.0) 05/04/25 05:24 Eos % (Auto) 3.6 % (0.9-2.9) H 05/04/25 05:24 Baso % (Auto) 0.9 % (0.2-1.0) 05/04/25 05:24 Neut # (Auto) 10.2 x10^3/uL (2.2-4.8) H 05/04/25 05:24 Lymph # (Auto) 1.8 X10^3/uL (1.3-2.9) 05/04/25 05:24 [place] # (Auto) 0.9 x10^3/uL (0.3-0.8) H 05/04/25 05:24 Eos # (Auto) 0.5 x10^3/uL (0.0-0.2) H 05/04/25 05:24 Baso # (Auto) 0.1 X10^3/uL (0.0-0.1) 05/04/25 05:24 Absolute Nucleated RBC 0.2 /100WBC 05/04/25 05:24 Sample Site Lbra 05/02/25 00:33 ABG pH 7.470 (7.35-7.45) H 05/02/25 00:33 ABG pCO2 31.0 mmHg (35.0-45.0) L 05/02/25 00:33 ABG pO2 82.0 mmHg (80.0-100.0) 05/02/25 00:33 ABG HCO3 22.6 mmol/L (22-26) 05/02/25 00:33 ABG O2 Saturation 97.0 % (90-100) 05/02/25 00:33 ABG Base Excess -0.3 mmol/L (-2.0-2.0) 05/02/25 00:33 Ronaldo Test Na 05/02/25 00:33 A-a Gradient 107.0 mmHg 05/02/25 00:33 FiO2 32.0 05/02/25 00:33 Blood Gas Comments Sheela abg well-mtf 05/02/25 00:33 Sodium 144 mmol/L (136-145) 05/04/25 05:24 Corrected Sodium 146 mmol/L (136-145) H 05/04/25 05:24 Potassium 4.2 mmol/L (3.5-5.1) 05/04/25 05:24 Chloride 109 mmol/L (98-107) H 05/04/25 05:24 Carbon Dioxide 27.3 mmol/L (21-32) 05/04/25 05:24 BUN 27 mg/dL (7-18) H 05/04/25 05:24 Creatinine 0.73 mg/dL (0.55-1.02) 05/04/25 05:24 Est GFR (MDRD) Af Amer > 60 (>60) 05/04/25 05:24 Est GFR (MDRD) Non-Af > 60 (>60) 05/04/25 05:24 Glucose 182 mg/dL (65-99) H 05/04/25 05:24 POC Glucose (mg/dL) 176 mg/dL (65-99) H 05/04/25 05:20 Lactic Acid 2.0 mmol/L (0.4-2.0) 05/02/25 00:15 Calcium 8.5 mg/dL (8.5-10.1) 05/04/25 05:24 Corrected Calcium 10.3 mg/dL (8.5-10.1) H 05/04/25 05:24 Magnesium 1.8 mg/dL (2.0-2.9) L 05/03/25 05:27 Total Bilirubin 0.20 mg/dL (0.2-1.0) 05/04/25 05:24 AST 15 Units/L (15-37) 05/04/25 05:24 ALT 18 Units/L (12-78) 05/04/25 05:24 Alkaline Phosphatase 126 Units/L (46-116) H 05/04/25 05:24 Creatine Kinase 127 Units/L (26-192) 05/01/25 23:35 Troponin I High Sens 268.1 ng/L (4.0-60.0) H* 05/01/25 23:35 Total Protein 7.0 g/dL (6.4-8.2) 05/04/25 05:24 Albumin 1.7 g/dL (3.4-5.0) L 05/04/25 05:24 Globulin 5.3 g/dL (2.5-4.5) H 05/04/25 05:24 Albumin/Globulin Ratio 0.3 Ratio (1.1-2.1) L 05/04/25 05:24 Assessment and Plan 1: Urinary tract infection being treated with antibiotics. 2: Calculus cholecystitis, no surgery is indicated at this time. 3: Sacral decubitus ulcer, stable no necrosis or abscess formation. Centimeters local care with wet-to-dry dressing. Nutritional support with added peripheral TPN. Problem Patient Problems: Patient Problems DNR (do not resuscitate) (Acute) Z66 Dysphagia as late effect of cerebrovascular disease (Acute) I69.991 Elevated troponin (Acute) R79.89 Hypoxemia (Acute) R09.02 Dementia (Chronic) F03.90
--- NOTE | 2025-05-04 11:00 | NOTE.SOAP ---
Soap Note Note for Day of Date of Exam: 05/04/25 Subjective Data Subjective Data: TPN started yesterday. Stable anemia. Reactive thrombocytosis. White count stable in the 13,000 range. Sipping on breakfast with assistance from tech today. Did have a run of V. tach overnight on telemetry. Was asymptomatic. Objective Data Objective Data: Elderly, well-developed female in no acute distress. Hearing intact conversation. More interactive today. Belly soft with bowel sounds present. Heart regular rate and rhythm. Lungs clear. Assessment Assessment: Acute cholecystitis Sepsis due to above DM2 w/ hyperglycemia Short run of V. tach on telemetry Plan Plan: Continue telemetry for now. Family does not want any further cardiac intervention at this time. Will try to avoid BB/CCB due to overall health status. Continue ertapenem. Continue TPN till discharge. Sepsis appears to be improving secondary to her acute cholecystitis. Continue per surgery recommendations. Plan on discharge to [facility] tomorrow.
[2025-05-04] MEDS: DRUG FILTER EXTENSION SET ONE (15:27)
[2025-05-04 23:13] VITALS: BMI 26.6
[2025-05-05 06:19] LABS: MEAN PLATELET VOLUME 9.0 fL (7.4-11.0); RED CELL DISTRIBUTION WIDTH 15.5 % (11.6-16.5)
[2025-05-05 06:28] LABS: COR CA(FOR HYPOALB) 10.4 mg/dL (8.5-10.1); COR NA(FOR HYPERGLY) 141 mmol/L (136-145); CREATININE 0.67 mg/dL (0.55-1.02); eGFR NON BLACK RACES > 60 (>60)
[2025-05-05 07:15] LABS: BASOPHILS % (MANUAL) 0 % (0-1); PLATELET MORPHOLOGY COMMENT NORMAL (NORMAL)
[2025-05-05 08:27] VITALS: BP 132/58; RESP 23; TEMP 98.5
[2025-05-05] MEDS: PROCRIT or EPOGEN VIAL 10,000 UNITS SC NR (08:49)
[2025-05-05 09:38] VITALS: PULSE 82; O2SAT 98
--- NOTE | 2025-05-05 10:05 | PCM.DCPLAN ---
DISCHARGE SUMMARY Admission Date Date of Admission: 05/01/25 Discharge Date Discharge Date: 05/05/25 Admission Diagnoses (1) Elevated troponin: Status: Acute (2) Hypoxemia: Status: Acute (3) Cholecystitis: Status: Acute (4) Anemia: Status: Chronic (5) Chronic interstitial lung disease: Status: Chronic (6) Mild protein-calorie malnutrition: Status: Chronic (7) Dysphagia: Status: Chronic Discharge Medications Discharge Medications: Prescriptions: Hospital Course Vital Signs: Vital Signs Temperature 97.9 F Temperature 98.4 F Pulse Rate [Apical] 80 Pulse Rate [Apical] 72 Respiratory Rate 18 Respiratory Rate 18 Blood Pressure [Left Arm] 129/69 Blood Pressure [Left Arm] 137/71 O2 Sat by Pulse Oximetry 96 O2 Sat by Pulse Oximetry 97 Latest Lab Results: Laboratory Last Values WBC 14.6 X10^3/uL (3.6-10.0) H 05/05/25 05:33 RBC 3.32 X10^6/uL (3.5-5.4) L 05/05/25 05:33 Hgb 8.7 g/dL (12.0-16.0) L 05/05/25 05:33 Hct 27.0 % (36.0-47.0) L 05/05/25 05:33 MCV 81.3 fL (80.0-100.0) 05/05/25 05:33 MCH 26.1 pg (27.0-34.0) L 05/05/25 05:33 MCHC 32.1 g/dL (33.0-35.0) L 05/05/25 05:33 RDW 15.5 % (11.6-16.5) 05/05/25 05:33 Plt Count 641 X10^3/uL (150.0-450.0) H 05/05/25 05:33 MPV 9.0 fL (7.4-11.0) 05/05/25 05:33 Neut % (Auto) 76.0 % (42.0-75.0) H 05/05/25 05:33 Lymph % (Auto) 13.4 % (21.0-51.0) L 05/05/25 05:33 [place] % (Auto) 6.2 % (0.0-13.0) 05/05/25 05:33 Eos % (Auto) 3.7 % (0.9-2.9) H 05/05/25 05:33 Baso % (Auto) 0.7 % (0.2-1.0) 05/05/25 05:33 Neut # (Auto) 11.1 x10^3/uL (2.2-4.8) H 05/05/25 05:33 Lymph # (Auto) 2.0 X10^3/uL (1.3-2.9) 05/05/25 05:33 [place] # (Auto) 0.9 x10^3/uL (0.3-0.8) H 05/05/25 05:33 Eos # (Auto) 0.5 x10^3/uL (0.0-0.2) H 05/05/25 05:33 Baso # (Auto) 0.1 X10^3/uL (0.0-0.1) 05/05/25 05:33 Absolute Nucleated RBC 0.1 /100WBC 05/05/25 05:33 Sample Site Lbra 05/02/25 00:33 ABG pH 7.470 (7.35-7.45) H 05/02/25 00:33 ABG pCO2 31.0 mmHg (35.0-45.0) L 05/02/25 00:33 ABG pO2 82.0 mmHg (80.0-100.0) 05/02/25 00:33 ABG HCO3 22.6 mmol/L (22-26) 05/02/25 00:33 ABG O2 Saturation 97.0 % (90-100) 05/02/25 00:33 ABG Base Excess -0.3 mmol/L (-2.0-2.0) 05/02/25 00:33 Ronaldo Test Na 05/02/25 00:33 A-a Gradient 107.0 mmHg 05/02/25 00:33 FiO2 32.0 05/02/25 00:33 Blood Gas Comments Sheela abg well-mtf 05/02/25 00:33 Sodium 140 mmol/L (136-145) 05/05/25 05:33 Corrected Sodium 141 mmol/L (136-145) 05/05/25 05:33 Potassium 4.5 mmol/L (3.5-5.1) 05/05/25 05:33 Chloride 106 mmol/L (98-107) 05/05/25 05:33 Carbon Dioxide 27.8 mmol/L (21-32) 05/05/25 05:33 BUN 28 mg/dL (7-18) H 05/05/25 05:33 Creatinine 0.67 mg/dL (0.55-1.02) 05/05/25 05:33 Est GFR (MDRD) Af Amer > 60 (>60) 05/05/25 05:33 Est GFR (MDRD) Non-Af > 60 (>60) 05/05/25 05:33 Glucose 145 mg/dL (65-99) H 05/05/25 05:33 POC Glucose (mg/dL) 143 mg/dL (65-99) H 05/05/25 04:00 Lactic Acid 2.0 mmol/L (0.4-2.0) 05/02/25 00:15 Calcium 8.7 mg/dL (8.5-10.1) 05/05/25 05:33 Corrected Calcium 10.4 mg/dL (8.5-10.1) H 05/05/25 05:33 Magnesium 1.8 mg/dL (2.0-2.9) L 05/03/25 05:27 Total Bilirubin 0.20 mg/dL (0.2-1.0) 05/05/25 05:33 AST 16 Units/L (15-37) 05/05/25 05:33 ALT 17 Units/L (12-78) 05/05/25 05:33 Alkaline Phosphatase 122 Units/L (46-116) H 05/05/25 05:33 Creatine Kinase 127 Units/L (26-192) 05/01/25 23:35 Troponin I High Sens 268.1 ng/L (4.0-60.0) H* 05/01/25 23:35 Total Protein 7.2 g/dL (6.4-8.2) 05/05/25 05:33 Albumin 1.9 g/dL (3.4-5.0) L 05/05/25 05:33 Globulin 5.3 g/dL (2.5-4.5) H 05/05/25 05:33 Albumin/Globulin Ratio 0.4 Ratio (1.1-2.1) L 05/05/25 05:33 Hospital Course: Patient is brought in from the residential due to coughing spells and subsequent hypoxemia, for which she responded well to suctioning of secretions and nebulization treatments. O2 sats improved to 94 to 96% on 2 L per nasal cannula after suctioning and nebulization treatments. Chest x-ray did not show any acute cardiopulmonary process. EKG showed sinus tachycardia with no acute ischemic changes but her troponin levels elevated. Further discussion with her main POA her daughter Francheska Olmos reiterated for DNR status and want only comfort measures. However she requested the their mother be admitted to the hospital and be consulted on by finance lecturer regarding this elevated troponin levels. They do not want any aggressive or heroic measures regarding possible CAD or worsening atherosclerosis. They also do not want any reinstitution of artificial feedings via gastrostomy tube. Discussed with Dr. Ch and the patient will be admitted for observation Above from H&P at admission. CT from prior admission resulted on the morning of follow-up. Did show acute cholecystitis. Surgery was consulted. She is not a surgical candidate and was responding to IV antibiotics. She was continued on IV ertapenem. White count was improving until TPN was started. Patient has remained overall stable. Did have 1 episode of V. tach on telemetry overnight but family did not want any further cardiac interventions at this time. Also declined G-tube placement as she had had 8 years ago and did not want again after removal. She has been discharged today after she gets her Procrit. Will need to complete 10 total days of IV antibiotics. Follow-up with surgery and continue wound care for sacral decubitus. Recheck labs on Thursday.
== END 2025-05-05 10:40 | DRG 948 ==
LOC: ER 23:17 → MED/SURG 23:17 → OBSVTOIN 05-02 02:14 → MED/SURG 05-02 02:30
PROVIDERS: ADMIT Internal Medicine; ATTEND Family Medicine
DX: R10.11 Right upper quadrant pain; J44.9 Chronic obstructive pulmonary disease, unspecified; K21.9 Gastro-esophageal reflux disease without esophagitis; Z79.4 Long term (current) use of insulin; R05.8 Other specified cough; R09.02 Hypoxemia; Z68.24 Body mass index [BMI] 24.0-24.9, adult; R79.89 Other specified abnormal findings of blood chemistry; R00.0 Tachycardia, unspecified; R74.01 Elevation of levels of liver transaminase levels; D72.828 Other elevated white blood cell count; E44.1 Mild protein-calorie malnutrition; I69.891 Dysphagia following other cerebrovascular disease; E11.65 Type 2 diabetes mellitus with hyperglycemia; D50.0 Iron deficiency anemia secondary to blood loss (chronic); Z66 Do not resuscitate; I10 Essential (primary) hypertension; E78.5 Hyperlipidemia, unspecified; F03.90 Unspecified dementia, unspecified severity, without behavioral disturbance, psychotic disturbance, mood disturbance, and anxiety; R13.11 Dysphagia, oral phase; K80.00 Calculus of gallbladder with acute cholecystitis without obstruction; R94.31 Abnormal electrocardiogram [ECG] [EKG]; R41.82 Altered mental status, unspecified; R06.02 Shortness of breath

== ENCOUNTER 2025-07-03 23:10 | Observation (INO) ==
[2025-07-03 23:27] LABS: ABG BASE EXCESS 2.6 mmol/L (-2.0-2.0); ABG HCO3 27.2 mmol/L (22-26); ABG OXYGEN SATURATION 90.0 % (90-100); ABG PCO2 41.0 mmHg (35.0-45.0); ABG PH 7.430 (7.35-7.45); ABG PO2 56.0 mmHg (80.0-100.0)
[2025-07-03 23:42] LABS: BLOOD/HEMOGLOBIN,URINE 4+ (NEGATIVE); LEUKOCYTE ESTERASE ,URINE 3+ (NEGATIVE); NITRITES,URINE NEGATIVE (NEGATIVE)
[2025-07-03 23:43] LABS: MEAN PLATELET VOLUME 8.6 fL (7.4-11.0); RED CELL DISTRIBUTION WIDTH 20.4 % (11.6-16.5)
[2025-07-03 23:45] LABS: APPEARANCE,URINE CLOUDY (CLEAR)
[2025-07-03 23:52] LABS: SQUAMOUS EPITHELIAL CELL,UR NEGATIVE /HPF (NEGATIVE)
--- NOTE | 2025-07-03 23:52 | DR.FEVERAD ---
HPI Time seen Time Seen by Provider: 07/03/25 23:49 PCP Primary Care Physician: Rustam Complaints/Symptoms Chief Complaint Doctor Comments: Patient presents to ER from skilled nursing with decreased O2 saturations fever and change in mental status Chief Complaint:: Patient brought over from [facility] with c/o decreased spo2, fever, and decreased responsivness. [facility] staff states patient symptoms just started this afternoon. Self Treatment fo Chief Complaint: tylenol suppository@ 2100 fro temp of 103.1 oral. COVID-19 Coronavirus risk:travel/contact w/high risk person: No Has patient experienced Coronavirus symptoms: Yes Coronavirus symptoms experienced: Fever Source History Provided: Patient Mode of Arrival Mode of Arrival: Stretcher Timing Onset of Chief Complaint: 07/03/25 PMH PMH Past Medical History: Yes Past Medical History: Anemia, Arthritis, COPD, Dementia, Depression, Diabetes, GERD, Hypertension and Sleep Apnea Past Surgical History: Yes Surgical History: Ortho Surgery Family History History of Family Medical Conditions: Yes Family Medical History: Diabetes Mellitus and Hypertension Social History Does any household member use tobacco: No Alcohol Use: None Do you use any recreational Drugs:: No Lives With: Other Lives Where: [facility] Travel Risk Coronavirus risk:travel/contact w/high risk person: No Has patient experienced Coronavirus symptoms: Yes Coronavirus symptoms experienced: Fever Infectious screening In the last 2 months have you had wt loss of >10#?: NO Have you had fever, night sweats or hemotysis?: No Have you traveled outside the country in the last 6 months?: No Isolation: Standard ROS Review of Systems Constitutional: See HPI and Fever Eyes: No Symptoms Reported ENTM: No Symptoms Reported Respiratoy: See HPI and Short of Breath Cardiovascular: No Symptoms Reported Gastrointestinal/Abdominal: No Symptoms Reported Genitourinary: No Symptoms Reported Neurological: See HPI and Other (Decreased mental status) Musculoskeletal: No Symptoms Reported Integumentary: No Symptoms Reported Hematologic/Lymphatic: No Symptoms Reported Endocrine: No Symptoms Reported Psychiatric: No Symptoms Reported All Other Systems: Reviewed and Negative PE Vital Signs Vitals: Vital Signs Temperature 99.0 F Pulse Rate 80 Pulse Rate 80 Pulse Rate 80 Pulse Rate 80 Pulse Rate 80 Pulse Rate 83 Pulse Rate 86 Pulse Rate 88 Pulse Rate 90 Pulse Rate 91 Pulse Rate 88 Pulse Rate 88 Respiratory Rate 29 Respiratory Rate 32 Respiratory Rate 32 Respiratory Rate 33 Respiratory Rate 33 Blood Pressure 90/51 Blood Pressure 90/51 Blood Pressure 91/53 Blood Pressure 91/53 Blood Pressure 91/51 Blood Pressure 92/53 Blood Pressure 104/52 Blood Pressure 104/57 O2 Sat by Pulse Oximetry 97 O2 Sat by Pulse Oximetry 97 O2 Sat by Pulse Oximetry 97 O2 Sat by Pulse Oximetry 99 O2 Sat by Pulse Oximetry 100 O2 Sat by Pulse Oximetry 96 O2 Sat by Pulse Oximetry 89 O2 Sat by Pulse Oximetry 88 O2 Sat by Pulse Oximetry 90 O2 Sat by Pulse Oximetry 94 O2 Sat by Pulse Oximetry 96 O2 Sat by Pulse Oximetry 93 General Limitations: No Limitations General Appearance: Alert and In No Apparent Distress Head Head Exam: Normal Inspection Eyes Eye exam: Normal Appearance ENT ENT Exam: Normal Exam Neck Neck Exam: Normal Inspection Respiratory Respiratory Exam: Normal Lung Sounds Bilat Cardiovascular Cardiovascular Exam: Regular Rate and Normal Rhythm Abdominal Exam Abdominal Exam: Normal Inspection, Normal Bowel Sounds and Soft Extremities Extremities Exam: Normal Inspection Back Back Exam: Normal Inspection Neurologic Neurological Exam: Other (Somnolent but arousable) Skin Skin Exam: Warm, Dry, Intact and Normal Color COURSE Treatment Treatment: Discussed findings with family and patient recommend admission discussed with Dr. Garcia will admit ROR Labs Reviewed 07/03/25 23:22 07/03/25 23:22 Laboratory: WBC 17.3 X10^3/uL (3.6-10.0) H 07/03/25 23: RBC 3.27 X10^6/uL (3.5-5.4) L 07/03/25 23:22 Hgb 7.7 g/dL (12.0-16.0) L 07/03/25 23: Hct 24.8 % (36.0-47.0) L 07/03/25 23:22 MCV 75.9 fL (80.0-100.0) L 07/03/25 23:22 MCH 23.6 pg (27.0-34.0) L 07/03/25 23: MCHC 31.1 g/dL (33.0-35.0) L 07/03/25 23:22 RDW 20.4 % (11.6-16.5) H 07/03/25 23:22 Plt Count 499 X10^3/uL (150.0-450.0) H 07/03/25 23:22 Plt Count Comment Increased (ADEQUATE) A 07/03/25 23: MPV 8.6 fL (7.4-11.0) 07/03/25 23:22 Neut % (Auto) 82.1 % (42.0-75.0) H 07/03/25 23:22 Lymph % (Auto) 10.6 % (21.0-51.0) L 07/03/25 23: [place] % (Auto) 5.5 % (0.0-13.0) 07/03/25 23:22 Eos % (Auto) 1.4 % (0.9-2.9) 07/03/25 23:22 Baso % (Auto) 0.4 % (0.2-1.0) 07/03/25 23: Neut # (Auto) 14.2 x10^3/uL (2.2-4.8) H 07/03/25 23:22 Lymph # (Auto) 1.8 X10^3/uL (1.3-2.9) 07/03/25 23:22 [place] # (Auto) 1.0 x10^3/uL (0.3-0.8) H 07/03/25 23:22 Eos # (Auto) 0.2 x10^3/uL (0.0-0.2) 07/03/25 23: Baso # (Auto) 0.1 X10^3/uL (0.0-0.1) 07/03/25 23: Absolute Nucleated RBC 0.2 /100WBC 07/03/25 23: Plt Morphology Comment Normal (NORMAL) 07/03/25 23: RBC Morphology Abnormal (NORMAL) A 07/03/25 23: Hypochromasia 1+ A 07/03/25 23: Anisocytosis 1+ A 07/03/25 23: Microcytosis Slight A 07/03/25 23: Target Cells 1+ A 07/03/25 23: Sample Site Lb 07/03/25 23:22 ABG pH 7.430 (7.35-7.45) 07/03/25 23:22 ABG pCO2 41.0 mmHg (35.0-45.0) 07/03/25 23: ABG pO2 56.0 mmHg (80.0-100.0) L 07/03/25 23:22 ABG HCO3 27.2 mmol/L (22-26) H 07/03/25 23:22 ABG O2 Saturation 90.0 % (90-100) 07/03/25 23:22 ABG Base Excess 2.6 mmol/L (-2.0-2.0) H 07/03/25 23:22 Ronaldo Test N/a 07/03/25 23:22 A-a Gradient 92.0 mmHg 07/03/25 23:22 FiO2 28.0 07/03/25 23:22 Blood Gas Comments Sheela well ae 07/03/25 23:22 Sodium 148 mmol/L (136-145) H 07/03/25 23:22 Corrected Sodium 152 mmol/L (136-145) H 07/03/25 23:22 Potassium 5.9 mmol/L (3.5-5.1) H 07/03/25 23:22 Chloride 110 mmol/L (98-107) H 07/03/25 23:22 Carbon Dioxide 26.9 mmol/L (21-32) 07/03/25 23:22 BUN 80 mg/dL (7-18) H 07/03/25 23:22 Creatinine 2.35 mg/dL (0.55-1.02) H 07/03/25 23:22 Est GFR (MDRD) Af Amer 25 (>60) L 07/03/25 23:22 Est GFR (MDRD) Non-Af 21 (>60) L 07/03/25 23:22 Glucose 264 mg/dL (65-99) H 07/03/25 23:22 Lactic Acid 2.3 mmol/L (0.4-2.0) H 07/03/25 23:22 Calcium 8.8 mg/dL (8.5-10.1) 07/03/25 23:22 Corrected Calcium 10.7 mg/dL (8.5-10.1) H 07/03/25 23:22 Total Bilirubin 0.30 mg/dL (0.2-1.0) 07/03/25 23:22 AST 19 Units/L (15-37) 07/03/25 23:22 ALT 13 Units/L (12-78) 07/03/25 23:22 Alkaline Phosphatase 108 Units/L (46-116) 07/03/25 23:22 B-Natriuretic Peptide 260 pg/mL (0-79) H 07/03/25 23:22 Total Protein 8.1 g/dL (6.4-8.2) 07/03/25 23:22 Albumin 1.6 g/dL (3.4-5.0) L 07/03/25 23:22 Globulin 6.5 g/dL (2.5-4.5) H 07/03/25 23:22 Albumin/Globulin Ratio 0.2 Ratio (1.1-2.1) L 07/03/25 23:22 Specimen Type Catherized urine 07/03/25 23:10 Urine Color Yellow (YELLOW) 07/03/25 23:10 Urine Appearance Cloudy (CLEAR) 07/03/25 23:10 Urine pH 6.0 (5.0 - 8.0) 07/03/25 23:10 Ur Specific [place] 1.015 (1.000-1.030) 07/03/25 23:10 Urine Protein 3+ (NEGATIVE) 07/03/25 23:10 Urine Glucose (UA) Negative (NEGATIVE) 07/03/25 23:10 Urine Ketones Negative (NEGATIVE) 07/03/25 23:10 Urine Blood 4+ (NEGATIVE) 07/03/25 23:10 Urine Nitrite Negative (NEGATIVE) 07/03/25 23:10 Urine Bilirubin Negative (NEGATIVE) 07/03/25 23:10 Urine Urobilinogen Normal (NORMAL) 07/03/25 23:10 Ur Leukocyte Esterase 3+ (NEGATIVE) 07/03/25 23:10 Urine RBC 10-20 /HPF (0-3) A 07/03/25 23:10 Urine WBC Tntc /HPF (0-5) A 07/03/25 23:10 Ur Squamous Epith Cells Negative /HPF (NEGATIVE) 07/03/25 23:10 Urine Bacteria Trace /HPF (NEGATIVE) 07/03/25 23:10 Ur Culture Indicated? Yes/culture set up 07/03/25 23:10 SARS-CoV-2 (PCR) Negative (NEGATIVE) 07/03/25 23:19 Influenza Type A (PCR) Negative (NEGATIVE) 07/03/25 23:19 Influenza Type B (PCR) Negative (NEGATIVE) 07/03/25 23:19 RSV (PCR) Negative (NEGATIVE) 07/03/25 23:19 Opioid Opioid Risk Tool Age (Koby box if 16-45): No History of Preadolescent Sexual Abuse: No Total: 0 Total Score Risk Category: Low Risk Copyright: Percy MOLINA predicting aberrant behaviors Discharge Plan Diagnosis Discharge Problem: Altered mental status, unspecified, UTI (urinary tract infection), Acute renal failure, Dementia Discharge Plan Patient Disposition: ADMITTED INPATIENT Condition: Stable Prescriptions: No Action fentanyl 25 mcg/hr patch 72 hour 1 patch transdermal Q72H MDD 1 30 Days Qty: 15 0RF atropine 1 % Drops 2 drp sublingual Q4HR PRN (Reason: decrease secretions) Procrit 10,000 unit/mL Solution See Rx Instructions .ROUTE .COMPLEX Rx Instructions: 10,000 unit subcutaneously once monthly when hemoglobin falls below 10. Metamucil 3.4 gram/5.4 gram Powder 1 tsp PO DAILY zinc 100 mg Tablet 100 mg PO DAILY primidone 50 mg Tablet 50 mg PO BID acetaminophen [Tylenol] 325 mg Tablet 650 mg PO QID PRN acetaminophen 650 mg Suppository 650 mg GA Q12H PRN albuterol sulfate 2.5 mg /3 mL (0.083 %) Solution For Nebulization 2.5 mg INHALATION ACHS Pro-Stat 101 Liquid 1 ea PO BID morphine concentrate 100 mg/5 mL (20 mg/mL) Solution 4 mg PO Q6H PRN lidocaine 5 % Cream 1 applic TOPICAL QID PRN ketotifen fumarate [Zaditor] 0.025 % (0.035 %) Drops 1 drp ophthalmic (eye) BID Rx Instructions: BOTH EYES administer at least 8 hours apart allopurinol 100 mg Tablet 100 mg PO QDAY tramadol 50 mg Tablet 50 mg PO Q6H PRN ketorolac 10 mg Tablet 10 mg PO HS Rx Instructions: maximum total duration of 5 days from all oral, intranasal, or parenteral formulations amlodipine [Norvasc] 10 mg Tablet 10 mg PO QDAY pantoprazole [Protonix] 40 mg Tablet,Delayed Release (Dr/Ec) 40 mg PO BID Novolin R Regular U100 Insulin 100 unit/mL Solution 1 sliding scale dose SUBCUT USEASDIRECTD ascorbic acid (vitamin C) 100 mg Tablet 100 mg PO QDAY gabapentin 300 mg Capsule 300 mg PO BID montelukast [Singulair] 10 mg Tablet 10 mg PO QDAY azelastine 137 mcg (0.1 %) [place],Non-Aerosol 1 spray INTRANASAL TID Rx Instructions: administer into each nostril fluticasone propion-salmeterol [Advair HFA] 115-21 mcg/actuation Hfa Aerosol Inhaler 2 puff INHALATION BID diclofenac sodium [Voltaren] 1 % Gel 2 g TOPICAL TID Rx Instructions: apply to single elbow, wrist or hand; for hand includes palm/fingers/back of hand megestrol 400 mg/10 mL (10 mL) Suspension 40 mg PO BID insulin degludec [Tresiba U-100 Insulin] 100 unit/mL Solution 12 unit SUBCUT QDAY Glucerna 1.5 Ramiro 0.08-1.5 gram-kcal/mL Liquid 1 ea PO DAILY Health Concerns: Post Hospitalization: new medications and changes needed to prevent readmission or further decline. Pt educated and given instructions on all concerns. Plan of Treatment: Continue with present treatment and follow up plan. Pt is to keep follow up appointment as instructed and take medications as ordered. Orders to Discharge Patient Discharge Orders: Transfer (Routine); Ordered 07/04/25 Ordered By: Iain Vogel Follow ups/Referrals Follow ups/Referrals: Omi Easton MD [Primary Care Provider, Family Practice] - 3 days Instructions Print Language: ECUADOREAN
[2025-07-04] LABS: COR CA(FOR HYPOALB) 10.7 mg/dL (8.5-10.1); COR NA(FOR HYPERGLY) 152.0 mmol/L (136-145); CREATININE 2.35 mg/dL (0.55-1.02); eGFR NON BLACK RACES 21.0 (>60)
[2025-07-04 00:08] LABS: PLATELET MORPHOLOGY COMMENT NORMAL (NORMAL)
[2025-07-04] MEDS: LEVAQUIN PREMIX IV 500 MG 500 MG/100 ML BAG IV SCH (00:13)
[2025-07-04] MEDS: NS 250 ML IV 250 ML IV ONE ×2 (00:13→07:37)
[2025-07-04] MEDS ORDERED: KAYEXALATE SUSP RECTAL NR (01:00)
[2025-07-04] MEDS: KAYEXALATE SUSP RECTAL ONE (01:17)
[2025-07-04] MEDS ORDERED: NS 1,000 ML IV 1,000 ML ONE (01:23)
[2025-07-04] MEDS: NS 1,000 ML IV 1,000 ML IV ONE (01:31)
[2025-07-04] MEDS ORDERED: TYLENOL 325 MG TAB PO PRN ×2 (01:34→03:05)
[2025-07-04] MEDS ORDERED: NS 250 ML IV 25 ML IV PRN (03:05)
[2025-07-04] MEDS ORDERED: ULTRAM PO PRN (03:05)
[2025-07-04 03:08] VITALS: BMI 24.5
[2025-07-04] MEDS: CONSULT PHARMACY - POTASSIUM & MAGNESIUM XX SCH (03:12)
[2025-07-04] MEDS: PHARMACY CONSULT LTC MEDICATIONS XX SCH (03:15)
[2025-07-04] MEDS: ZOSYN VIAL 3.375 GRAMS 3.375 G in NS 100 ML IV 100 ML IV SCH (03:16)
[2025-07-04] MEDS: NS 1,000 ML IV 1,000 ML IV SCH (04:14)
[2025-07-04] MEDS: MORPHINE SULFATE INJ 2 MG INJ IVP PRN (04:34)
[2025-07-04] MEDS ORDERED: ASTELIN NASAL SPRAY ENOSTRIL ONE (05:30)
[2025-07-04 05:43] LABS: MEAN PLATELET VOLUME 8.6 fL (7.4-11.0); RED CELL DISTRIBUTION WIDTH 20.1 % (11.6-16.5)
[2025-07-04] MEDS: ZOSYN VIAL 2.25 GRAMS 2.25 G in NS 100 ML IV 100 ML IV SCH (05:46)
[2025-07-04] MEDS: ASTELIN NASAL SPRAY ENOSTRIL SCH (05:46)
[2025-07-04 05:49] LABS: COR CA(FOR HYPOALB) 10.5 mg/dL (8.5-10.1); CREATININE 2.38 mg/dL (0.55-1.02); PLATELET MORPHOLOGY COMMENT NORMAL (NORMAL); eGFR NON BLACK RACES 20 (>60)
[2025-07-04] MEDS ORDERED: ZOSYN VIAL 3.375 GRAMS 3.375 G in NS 100 ML IV 100 ML IV SCH (06:00)
[2025-07-04] MEDS ORDERED: NovoLIN R (or HumuLIN R) SUBCUT SCH (06:30)
--- NOTE | 2025-07-04 07:07 | RAD ---
EXAM: CHEST HISTORY: Patient brought over from [facility] with c/o decreased spo2, fever, and decreased responsivness. [facility] staff states patient symptoms just started this afternoon. ; HTN, DM, DEMENTIA, ANEMIA, COPD, GERD, SLEEP APNEA SX: ORTHO COMPARISON: June 15, 2025. TECHNIQUE: Frontal view of the chest was submitted for interpretation. FINDINGS: The cardiomediastinal silhouette is again seen to be enlarged. Lungs show interstitial opacities bilaterally some of which may be chronic. Worsening pulmonary edema may be present. IMPRESSION: Cardiomegaly with likely worsening pulmonary edema THIS IS AN ELECTRONICALLY VERIFIED FINAL REPORT 07/04/2025 7:03 AM - Electronically signed by Sebastian Graham MD
[2025-07-04] MEDS: LEVAQUIN PREMIX IV 500 MG 500 MG/100 ML BAG IV ONE (07:37)
[2025-07-04] MEDS: PULMICORT NEB TX 0.5 MG NEB SCH (08:15)
[2025-07-04] MEDS: PROVENTIL NEB TX 0.083% 2.5MG/ 3ML IN SCH (08:15)
[2025-07-04] MEDS ORDERED: PULMICORT NEB TX 0.5 MG NEB SCH (09:00)
[2025-07-04] MEDS ORDERED: PROVENTIL NEB TX 0.083% 2.5MG/ 3ML NEB SCH ×2 (09:00)
[2025-07-04] MEDS ORDERED: PATIENT'S HOME MEDICATION (Fluticasone Propion-Salmeterol [Advair Hfa] 115-21 mcg/actuatio IN SCH (09:00)
[2025-07-04] MEDS: NEURONTIN CAP 100 MG PO SCH (09:06)
[2025-07-04] MEDS ORDERED: PHARMACY CONSULT XX SCH ×2 (10:00)
[2025-07-04] MEDS: NS 100 ML IV 100 ML with VENOFER 400 MG IV NR (10:20)
[2025-07-04] MEDS: NORVASC TAB 10 MG PO SCH (11:38)
[2025-07-04] MEDS: D5 1/2 NS 1,000 ML 1,000 ML IV SCH (12:59)
--- NOTE | 2025-07-04 13:20 | DR.H&P ---
H&P History & Physical for Day of: H&P Date: 07/04/25 Chief Complaint Chief Complaint: fever History of Present Illness History of Present Illness: Patient admitted last night due to acute on chronic anemia, acute on chronic kidney failure and concern for infection. Urine was grossly abnormal. Has had multiple abnormal urines this year with no positive urine cultures. Multiple positive cultures in 2023, though. Was febrile once in the correction and transferred to the ER. She has been afebrile in the ER and upstairs. Hemoglobin was found to be at 5.8, sodium 151, and potassium at 5.4. Creatinine elevated at 2.38. She was admitted under similar situation approximately 3 weeks ago. Was here for 8 days and discharged back to the nursing facility with no further antibiotics and plans for twice weekly IV fluids. She has been receiving those until yesterday. She was due yesterday and the nurses found her to be febrile. No acute events overnight. Family is not at bedside but nurse present for exam. Respiratory rate variable but tachypneic. Patient has not been interactive with staff. Currently have an iron infused. She normally gets Procrit routinely. She is a Mosque and family declines blood transfusion. ROS: 12 point ROS unable to obtain from patient due to her dementia and lack of communication. History obtained from chart staff. Vitals, labs, prior records reviewed. PE: Thin, elderly female in no acute distress. Does not awaken to pain but does respond to pain. Heart regular rate and rhythm. Lungs diminished with tachypnea respirations. Belly is soft and nontender. Contractures throughout extremities. Skin with poor turgor but appropriate color. Past Medical History Past Medical History: Anemia, Arthritis, COPD, Dementia, Depression, Diabetes, GERD, Hypertension and Sleep Apnea Past Surgical History Surgical History: Ortho Surgery Family History Family Medical History: Diabetes Mellitus and Hypertension Social History Does any household member use tobacco: No Alcohol Use: None Drug Use: None Medications Home Medications: Home Medications Medication Instructions Recorded Confirmed Type atropine 1 % eye drops 2 drp sublingual Q4HR PRN de crease 06/13/25 07/03/25 History secretions epoetin lulu 10,000 unit/mL See Rx Instructions .Route .COMPLEX 06/13/25 07/04/25 History injection solution (Procrit) psyllium husk 3.4 gram/5.4 gram 1 tbsp PO DAILY 07/04/25 History oral powder (Metamucil) acetaminophen 325 mg tablet 650 mg PO QID PRN 07/03/25 07/04/25 History (Tylenol) acetaminophen 650 mg rectal 650 mg [place] Q12H PRN 5 07/03/25 History suppository albuterol sulfate 2.5 mg/3 mL 2.5 mg inhalation ACHS 0 07/03/25 07/03/25 History (0.083 %) solution for nebulization allopurinol 100 mg tablet 100 mg PO QDAY 07/03/2506/13 History amino acids-protein hydrolysate 1 ea PO BID 07/03/25 0 07/04/25 History oral liquid amlodipine 10 mg tablet (Norvasc) 10 mg PO QDAY 07/04/25 History ascorbic acid (vitamin C) 100 mg 100 mg PO QDAY 07/03/25 History tablet azelastine 137 mcg (0.1 %) nasal 1 spray intranasal TI D 07/03/25 07/03/25 History spray diclofenac sodium 1 % topical gel 2 g topical TID 06/1307/04/25 History fluticasone propionate 115 2 puff inhalation BID 07/0307/03/25 History mcg-salmeterol 21 mcg/actuation HFA inhaler (Advair HFA) gabapentin 300 mg capsule 300 mg PO BID 07/03/2507/03 History insulin degludec 100 unit/mL 12 unit subcut QDAY 07/0307/04/25 History subcutaneous solution (Tresiba U-100 Insulin) insulin regular human 100 unit/mL 1 sliding scale dose subcut 07/03/25 07/04/25 History injection solution (Novolin R USEASDIRECTD Regular U-100 Insulin) ketorolac 10 mg tablet 10 mg PO HS 07/03/25 5 History ketotifen fumarate 0.025 % (0.035 1 drp ophthalmic (ey e) BID 07/03/25 07/04/25 History %) eye drops (Zaditor) lidocaine 5 % topical cream 1 applic topical QID PRN 0 07/03/25 07/03/25 History megestrol 400 mg/10 mL (10 mL) 40 mg PO BID 07/03/25 0 07/03/25 History oral suspension montelukast 10 mg tablet 10 mg PO QDAY 07/03/2507/04 History (Singulair) morphine concentrate 100 mg/5 mL 4 mg PO Q6H PRN 07/0307/04/25 History (20 mg/mL) oral solution nutrition tx glu 1 ea PO QID 07/03/25 5 History intol,lac-free,soy-fiber 0.08 gram-1.5 kcal/mL liquid (Glucerna 1.5 Ramiro) pantoprazole 40 mg tablet,delayed 40 mg PO BID 5 07/04/25 History release (Protonix) primidone 50 mg tablet 50 mg PO BID 07/03/25 History tramadol 50 mg tablet 50 mg PO Q6H PRN 07/03/25 History zinc 100 mg tablet 100 mg PO DAILY 07/03/25 History Allergies Allergies Allergy/AdvReac Type Severity Reaction Status Date / Time Sulfa (Sulfonamide Allergy Unknown Verified 06/12/25 14:38 Antibiotics) Labs 07/04/25 05:13 07/04/25 05:13 Labs: Laboratory WBC 16.1 X10^3/uL (3.6-10.0) H 07/04/25 05:13 RBC 2.45 X10^6/uL (3.5-5.4) L 07/04/25 05:13 Hgb 5.8 g/dL (12.0-16.0) L* 07/04/25 05:13 Hct 18.8 % (36.0-47.0) L* 07/04/25 05:13 MCV 76.8 fL (80.0-100.0) L 07/04/25 05:13 MCH 23.8 pg (27.0-34.0) L 07/04/25 05:13 MCHC 31.0 g/dL (33.0-35.0) L 07/04/25 05:13 RDW 20.1 % (11.6-16.5) H 07/04/25 05:13 Plt Count 428 X10^3/uL (150.0-450.0) 07/04/25 05:13 Plt Count Comment Adequate (ADEQUATE) 07/04/25 05:13 MPV 8.6 fL (7.4-11.0) 07/04/25 05:13 Neut % (Auto) 76.5 % (42.0-75.0) H 07/04/25 05:13 Lymph % (Auto) 11.6 % (21.0-51.0) L 07/04/25 05:13 [place] % (Auto) 9.0 % (0.0-13.0) 07/04/25 05:13 Eos % (Auto) 2.6 % (0.9-2.9) 07/04/25 05:13 Baso % (Auto) 0.3 % (0.2-1.0) 07/04/25 05:13 Neut # (Auto) 12.3 x10^3/uL (2.2-4.8) H 07/04/25 05:13 Lymph # (Auto) 1.9 X10^3/uL (1.3-2.9) 07/04/25 05:13 [place] # (Auto) 1.4 x10^3/uL (0.3-0.8) H 07/04/25 05:13 Eos # (Auto) 0.4 x10^3/uL (0.0-0.2) H 07/04/25 05:13 Baso # (Auto) 0.0 X10^3/uL (0.0-0.1) 07/04/25 05:13 Absolute Nucleated RBC 0.2 /100WBC 07/04/25 05:13 Plt Morphology Comment Normal (NORMAL) 07/04/25 05:13 RBC Morphology Abnormal (NORMAL) A 07/04/25 05:13 Hypochromasia 1+ A 07/04/25 05:13 Anisocytosis 1+ A 07/04/25 05:13 Microcytosis Slight A 07/04/25 05:13 Target Cells Slight A 07/04/25 05:13 Sample Site Lb 07/03/25 23:22 ABG pH 7.430 (7.35-7.45) 07/03/25 23:22 ABG pCO2 41.0 mmHg (35.0-45.0) 07/03/25 23:22 ABG pO2 56.0 mmHg (80.0-100.0) L 07/03/25 23:22 ABG HCO3 27.2 mmol/L (22-26) H 07/03/25 23:22 ABG O2 Saturation 90.0 % (90-100) 07/03/25 23:22 ABG Base Excess 2.6 mmol/L (-2.0-2.0) H 07/03/25 23:22 Ronaldo Test N/a 07/03/25 23:22 A-a Gradient 92.0 mmHg 07/03/25 23:22 FiO2 28.0 07/03/25 23:22 Blood Gas Comments Sheela well ae 07/03/25 23:22 Sodium 151 mmol/L (136-145) H* 07/04/25 05:13 Corrected Sodium TNP 07/04/25 05:13 Potassium 5.4 mmol/L (3.5-5.1) H 07/04/25 05:13 Chloride 115 mmol/L (98-107) H* 07/04/25 05:13 Carbon Dioxide 28.7 mmol/L (21-32) 07/04/25 05:13 BUN 76 mg/dL (7-18) H 07/04/25 05:13 Creatinine 2.38 mg/dL (0.55-1.02) H 07/04/25 05:13 Est GFR (MDRD) Af Amer 25 (>60) L 07/04/25 05:13 Est GFR (MDRD) Non-Af 20 (>60) L 07/04/25 05:13 Glucose 97 mg/dL (65-99) 07/04/25 05:13 Lactic Acid 1.4 mmol/L (0.4-2.0) 07/04/25 01:29 Calcium 8.4 mg/dL (8.5-10.1) L 07/04/25 05:13 Corrected Calcium 10.5 mg/dL (8.5-10.1) H 07/04/25 05:13 Total Bilirubin 0.30 mg/dL (0.2-1.0) 07/04/25 05:13 AST 18 Units/L (15-37) 07/04/25 05:13 ALT 10 Units/L (12-78) L 07/04/25 05:13 Alkaline Phosphatase 87 Units/L (46-116) 07/04/25 05:13 B-Natriuretic Peptide 260 pg/mL (0-79) H 07/03/25 23:22 Total Protein 7.2 g/dL (6.4-8.2) 07/04/25 05:13 Albumin 1.4 g/dL (3.4-5.0) L 07/04/25 05:13 Globulin 5.8 g/dL (2.5-4.5) H 07/04/25 05:13 Albumin/Globulin Ratio 0.2 Ratio (1.1-2.1) L 07/04/25 05:13 Specimen Type Catherized urine 07/03/25 23:10 Urine Color Yellow (YELLOW) 07/03/25 23:10 Urine Appearance Cloudy (CLEAR) 07/03/25 23:10 Urine pH 6.0 (5.0 - 8.0) 07/03/25 23:10 Ur Specific [place] 1.015 (1.000-1.030) 07/03/25 23:10 Urine Protein 3+ (NEGATIVE) 07/03/25 23:10 Urine Glucose (UA) Negative (NEGATIVE) 07/03/25 23:10 Urine Ketones Negative (NEGATIVE) 07/03/25 23:10 Urine Blood 4+ (NEGATIVE) 07/03/25 23:10 Urine Nitrite Negative (NEGATIVE) 07/03/25 23:10 Urine Bilirubin Negative (NEGATIVE) 07/03/25 23:10 Urine Urobilinogen Normal (NORMAL) 07/03/25 23:10 Ur Leukocyte Esterase 3+ (NEGATIVE) 07/03/25 23:10 Urine RBC 10-20 /HPF (0-3) A 07/03/25 23:10 Urine WBC Tntc /HPF (0-5) A 07/03/25 23:10 Ur Squamous Epith Cells Negative /HPF (NEGATIVE) 07/03/25 23:10 Urine Bacteria Trace /HPF (NEGATIVE) 07/03/25 23:10 Ur Culture Indicated? Yes/culture set up 07/03/25 23:10 SARS-CoV-2 (PCR) Negative (NEGATIVE) 07/03/25 23:19 Influenza Type A (PCR) Negative (NEGATIVE) 07/03/25 23:19 Influenza Type B (PCR) Negative (NEGATIVE) 07/03/25 23:19 RSV (PCR) Negative (NEGATIVE) 07/03/25 23:19 Physical Exam Vital Signs: Vital Signs Temperature 97.5 F Temperature 97.4 F Pulse Rate [Left] 66 Pulse Rate [Left] 68 Pulse Rate 68 Respiratory Rate 26 Respiratory Rate 24 Blood Pressure [Left Arm] 106/56 Blood Pressure [Left Arm] 89/50 O2 Sat by Pulse Oximetry 98 O2 Sat by Pulse Oximetry 98 O2 Sat by Pulse Oximetry 99 Assessment/Plan (1) Acute renal failure: Qualifiers: Acute renal failure type: with acute tubular necrosis Qualified Code(s): N17.0 - Acute kidney failure with tubular necrosis Narrative Support Text: Skin care. IV fluids. Monitoring of labs and vitals. Need to have a discussion with family about palliative care. I do wonder if she is having recurrent cholecystitis that she is not a surgical candidate. Will continue with iron and Procrit for now. Prognosis is very poor. Status: Acute (2) Hypernatremia: Status: Acute (3) Acute hyperkalemia: Status: Acute (4) Sacral decubitus ulcer, stage III: Status: None (5) Dysphagia as late effect of cerebrovascular disease: Status: Acute (6) Chronic interstitial lung disease: Status: Chronic (7) Mild protein-calorie malnutrition: Status: Chronic
[2025-07-04] MEDS: NovoLIN R (or HumuLIN R) SUBCUT PRN (21:13)
[2025-07-04] MEDS: SNACK - Diabetic Appropriate PO SCH (21:18)
[2025-07-04] MEDS: TRESIBA U-100 INSULIN SC SCH (22:47)
[2025-07-05 06:17] LABS: COR CA(FOR HYPOALB) 10.5 mg/dL (8.5-10.1); COR NA(FOR HYPERGLY) 149.0 mmol/L (136-145); CREATININE 1.73 mg/dL (0.55-1.02); eGFR NON BLACK RACES 29.0 (>60)
[2025-07-05 06:19] LABS: MEAN PLATELET VOLUME 9.2 fL (7.4-11.0); RED CELL DISTRIBUTION WIDTH 20.3 % (11.6-16.5)
[2025-07-05 06:49] LABS: PLATELET MORPHOLOGY COMMENT NORMAL (NORMAL)
[2025-07-05] MEDS ORDERED: INVanz INJ 1 GRAM VIAL 1 G in NS 100 ML IV 100 ML IV SCH (09:00)
[2025-07-05] MEDS: INVanz INJ 1 GRAM VIAL 0.5 G in NS 50 ML IV 50 ML IV SCH (09:00)
[2025-07-05] MEDS: NORCO 5/325 MG TAB PO PRN (11:41)
--- NOTE | 2025-07-05 16:24 | US ---
EXAM: GALL BLADDER HISTORY: r/o necrosis of gallbladder; AMS, UTI, ANEMIA, NECROSIS OF GB COMPARISON: No relevant prior studies available. TECHNIQUE: 73 static images were reviewed. FINDINGS: Right hepatic lobe measures 16.1 cm. No focal liver lesion identified. Portal vein is patent with hepatopetal flow. Hepatic artery is patent. Hepatic vein is patent with hepatofugal flow. Sludge/stones in the dependent portion of the gallbladder. Gallbladder wall measures 0.38 cm in thickness. Asymmetric wall thickening. No intraluminal membranes visualized. Common duct measures 0.35 cm in width. Right kidney measures 9.5 x 4.3 x 4.6 cm. Cortex measures 1.1 cm. Resistive index 0.63. No hydronephrosis. Imaged portion of the pancreas is grossly unremarkable. IMPRESSION: Cholelithiasis with gallbladder asymmetrical wall thickening. Findings are concerning for acute cholecystitis and could represent gangrenous cholecystitis. Consider CT imaging 4 further evaluation. THIS IS AN ELECTRONICALLY VERIFIED FINAL REPORT 07/05/2025 4:21 PM - Electronically signed by Puneet Mortensen MD
[2025-07-06] MEDS ORDERED: LEVAQUIN PREMIX IV 250 MG 250 MG/50 ML BAG IV SCH (05:00)
[2025-07-06 05:52] LABS: MEAN PLATELET VOLUME 8.9 fL (7.4-11.0); RED CELL DISTRIBUTION WIDTH 20.4 % (11.6-16.5)
[2025-07-06 06:09] LABS: COR CA(FOR HYPOALB) 10.5 mg/dL (8.5-10.1); COR NA(FOR HYPERGLY) 145.0 mmol/L (136-145); CREATININE 1.5 mg/dL (0.55-1.02); eGFR NON BLACK RACES 35.0 (>60)
[2025-07-06 06:36] LABS: PLATELET MORPHOLOGY COMMENT NORMAL (NORMAL)
[2025-07-06 09:22] VITALS: O2SAT 100
[2025-07-06 13:05] VITALS: BP 139/63; PULSE 96; RESP 38; TEMP 98.2
--- NOTE | 2025-07-07 07:36 | NOTE.SOAP ---
Soap Note Note for Day of Date of Exam: 07/05/25 Subjective Data Subjective Data: Sodium improved. Answering some questions. Still tachypneic. SCr improving. Objective Data Objective Data: Elderly, thin female in NAD. RRR. Lungs diminished with crackles. Bowel sounds present. Contractures present. Assessment Assessment: End stage dementia Worsening cholecystitis Severe sepsis (present at admission) due to cholecystitis (fever, tachycardia, WBCs, ALEXANDER) Hypernatremia Plan Plan: Hospice/end-of-life care discussed with daughters in detail for more than 30 minutes. Will plan to transition back to [facility] on in-facility hospice/comfort care tomorrow. Continue current care otherwise.
--- NOTE | 2025-07-07 13:07 | PCM.DCPLAN ---
DISCHARGE SUMMARY Admission Date Date of Admission: 07/03/25 Discharge Date Discharge Date: 07/06/25 Admission Diagnoses (1) Acute renal failure: Status: Acute (2) Hypernatremia: Status: Acute (3) Acute hyperkalemia: Status: Acute (4) Sacral decubitus ulcer, stage III: Status: None (5) Dysphagia as late effect of cerebrovascular disease: Status: Acute (6) Chronic interstitial lung disease: Status: Chronic (7) Mild protein-calorie malnutrition: Status: Chronic (8) Gangrenous cholecystitis: Status: Acute (9) Severe sepsis: Status: Acute Discharge Medications Discharge Medications: Home Medication List acetaminophen 325 mg tablet (Tylenol) 650 mg PO QID PRN 07/03/25 [History] acetaminophen 650 mg rectal suppository 650 mg [place] Q12H PRN 07/03/25 [History] albuterol sulfate 2.5 mg/3 mL (0.083 %) solution for nebulization 2.5 mg inhalation ACHS 07/03/25 [History] allopurinol 100 mg tablet 100 mg PO QDAY 07/03/25 [History] amino acids-protein hydrolysate oral liquid 1 ea PO BID 07/03/25 [History] amlodipine 10 mg tablet (Norvasc) 10 mg PO QDAY 07/03/25 [History] ascorbic acid (vitamin C) 100 mg tablet 100 mg PO QDAY 07/03/25 [History] azelastine 137 mcg (0.1 %) nasal spray 1 spray intranasal TID 07/03/25 [History] diclofenac sodium 1 % topical gel 2 g topical TID 07/03/25 [History] fluticasone propionate 115 mcg-salmeterol 21 mcg/actuation HFA inhaler (Advair HFA) 2 puff inhalation BID 07/03/25 [History] gabapentin 300 mg capsule 300 mg PO BID 07/03/25 [History] insulin degludec 100 unit/mL subcutaneous solution (Tresiba U-100 Insulin) 12 unit subcut QDAY 07/03/25 [History] insulin regular human 100 unit/mL injection solution (Novolin R Regular U-100 Insulin) 1 sliding scale dose subcut USEASDIRECTD 07/03/25 [History] ketorolac 10 mg tablet 10 mg PO HS 07/03/25 [History] ketotifen fumarate 0.025 % (0.035 %) eye drops (Zaditor) 1 drp ophthalmic (eye) BID 07/03/25 [History] lidocaine 5 % topical cream 1 applic topical QID PRN 07/03/25 [History] megestrol 400 mg/10 mL (10 mL) oral suspension 40 mg PO BID 07/03/25 [History] montelukast 10 mg tablet (Singulair) 10 mg PO QDAY 07/03/25 [History] morphine concentrate 100 mg/5 mL (20 mg/mL) oral solution 4 mg PO Q6H PRN 07/03/25 [History] nutrition tx glu intol,lac-free,soy-fiber 0.08 gram-1.5 kcal/mL liquid (Glucerna 1.5 Ramiro) 1 ea PO QID 07/03/25 [History] pantoprazole 40 mg tablet,delayed release (Protonix) 40 mg PO BID 07/03/25 [History] primidone 50 mg tablet 50 mg PO BID 07/03/25 [History] tramadol 50 mg tablet 50 mg PO Q6H PRN 07/03/25 [History] zinc 100 mg tablet 100 mg PO DAILY 07/03/25 [History] Prescriptions: Hospital Course Vital Signs: Vital Signs Temperature 97.0 F Temperature 97.9 F Pulse Rate [Left] 84 Pulse Rate [Left] 88 Respiratory Rate 27 Respiratory Rate 23 Blood Pressure [Left Arm] 116/58 Blood Pressure [Left Arm] 125/60 O2 Sat by Pulse Oximetry 95 O2 Sat by Pulse Oximetry 100 Latest Lab Results: Laboratory Last Values WBC 11.6 X10^3/uL (3.6-10.0) H 07/06/25 05:21 RBC 3.17 X10^6/uL (3.5-5.4) L 07/06/25 05:21 Hgb 7.5 g/dL (12.0-16.0) L 07/06/25 05:21 Hct 24.5 % (36.0-47.0) L 07/06/25 05:21 MCV 77.2 fL (80.0-100.0) L 07/06/25 05:21 MCH 23.7 pg (27.0-34.0) L 07/06/25 05:21 MCHC 30.6 g/dL (33.0-35.0) L 07/06/25 05:21 RDW 20.4 % (11.6-16.5) H 07/06/25 05:21 Plt Count 463 X10^3/uL (150.0-450.0) H 07/06/25 05:21 Plt Count Comment Increased (ADEQUATE) A 07/06/25 05:21 MPV 8.9 fL (7.4-11.0) 07/06/25 05:21 Neut % (Auto) 76.3 % (42.0-75.0) H 07/06/25 05:21 Lymph % (Auto) 10.9 % (21.0-51.0) L 07/06/25 05:21 [place] % (Auto) 8.8 % (0.0-13.0) 07/06/25 05:21 Eos % (Auto) 3.5 % (0.9-2.9) H 07/06/25 05:21 Baso % (Auto) 0.5 % (0.2-1.0) 07/06/25 05:21 Neut # (Auto) 8.8 x10^3/uL (2.2-4.8) H 07/06/25 05:21 Lymph # (Auto) 1.3 X10^3/uL (1.3-2.9) 07/06/25 05:21 [place] # (Auto) 1.0 x10^3/uL (0.3-0.8) H 07/06/25 05:21 Eos # (Auto) 0.4 x10^3/uL (0.0-0.2) H 07/06/25 05:21 Baso # (Auto) 0.1 X10^3/uL (0.0-0.1) 07/06/25 05:21 Absolute Nucleated RBC 0.7 /100WBC 07/06/25 05:21 Plt Morphology Comment Normal (NORMAL) 07/06/25 05:21 RBC Morphology Abnormal (NORMAL) A 07/06/25 05:21 Hypochromasia 1+ A 07/06/25 05:21 Anisocytosis 1+ A 07/06/25 05:21 Microcytosis Slight A 07/06/25 05:21 Target Cells Slight A 07/05/25 05:10 Sample Site Lb 07/03/25 23:22 ABG pH 7.430 (7.35-7.45) 07/03/25 23:22 ABG pCO2 41.0 mmHg (35.0-45.0) 07/03/25 23:22 ABG pO2 56.0 mmHg (80.0-100.0) L 07/03/25 23:22 ABG HCO3 27.2 mmol/L (22-26) H 07/03/25 23:22 ABG O2 Saturation 90.0 % (90-100) 07/03/25 23:22 ABG Base Excess 2.6 mmol/L (-2.0-2.0) H 07/03/25 23:22 Ronaldo Test N/a 07/03/25 23:22 A-a Gradient 92.0 mmHg 07/03/25 23:22 FiO2 28.0 07/03/25 23:22 Blood Gas Comments Sheela well ae 07/03/25 23:22 Sodium 143 mmol/L (136-145) 07/06/25 05:21 Corrected Sodium 145 mmol/L (136-145) 07/06/25 05:21 Potassium 4.7 mmol/L (3.5-5.1) 07/06/25 05:21 Chloride 109 mmol/L (98-107) H 07/06/25 05:21 Carbon Dioxide 25.3 mmol/L (21-32) 07/06/25 05:21 BUN 43 mg/dL (7-18) H 07/06/25 05:21 Creatinine 1.50 mg/dL (0.55-1.02) H 07/06/25 05:21 Est GFR (MDRD) Af Amer 42 (>60) L 07/06/25 05:21 Est GFR (MDRD) Non-Af 35 (>60) L 07/06/25 05:21 Glucose 173 mg/dL (65-99) H 07/06/25 05:21 POC Glucose (mg/dL) 164 mg/dL (65-99) H 07/06/25 05:32 Lactic Acid 1.4 mmol/L (0.4-2.0) 07/04/25 01:29 Calcium 8.5 mg/dL (8.5-10.1) 07/06/25 05:21 Corrected Calcium 10.5 mg/dL (8.5-10.1) H 07/06/25 05:21 Total Bilirubin 0.20 mg/dL (0.2-1.0) 07/06/25 05:21 AST 15 Units/L (15-37) 07/06/25 05:21 ALT 6 Units/L (12-78) L 07/06/25 05:21 Alkaline Phosphatase 112 Units/L (46-116) 07/06/25 05:21 B-Natriuretic Peptide 260 pg/mL (0-79) H 07/03/25 23:22 Total Protein 7.6 g/dL (6.4-8.2) 07/06/25 05:21 Albumin 1.5 g/dL (3.4-5.0) L 07/06/25 05:21 Globulin 6.1 g/dL (2.5-4.5) H 07/06/25 05:21 Albumin/Globulin Ratio 0.2 Ratio (1.1-2.1) L 07/06/25 05:21 Specimen Type Catherized urine 07/03/25 23:10 Urine Color Yellow (YELLOW) 07/03/25 23:10 Urine Appearance Cloudy (CLEAR) 07/03/25 23:10 Urine pH 6.0 (5.0 - 8.0) 07/03/25 23:10 Ur Specific [place] 1.015 (1.000-1.030) 07/03/25 23:10 Urine Protein 3+ (NEGATIVE) 07/03/25 23:10 Urine Glucose (UA) Negative (NEGATIVE) 07/03/25 23:10 Urine Ketones Negative (NEGATIVE) 07/03/25 23:10 Urine Blood 4+ (NEGATIVE) 07/03/25 23:10 Urine Nitrite Negative (NEGATIVE) 07/03/25 23:10 Urine Bilirubin Negative (NEGATIVE) 07/03/25 23:10 Urine Urobilinogen Normal (NORMAL) 07/03/25 23:10 Ur Leukocyte Esterase 3+ (NEGATIVE) 07/03/25 23:10 Urine RBC 10-20 /HPF (0-3) A 07/03/25 23:10 Urine WBC Tntc /HPF (0-5) A 07/03/25 23:10 Ur Squamous Epith Cells Negative /HPF (NEGATIVE) 07/03/25 23:10 Urine Bacteria Trace /HPF (NEGATIVE) 07/03/25 23:10 Ur Culture Indicated? Yes/culture set up 07/03/25 23:10 SARS-CoV-2 (PCR) Negative (NEGATIVE) 07/03/25 23:19 Influenza Type A (PCR) Negative (NEGATIVE) 07/03/25 23:19 Influenza Type B (PCR) Negative (NEGATIVE) 07/03/25 23:19 RSV (PCR) Negative (NEGATIVE) 07/03/25 23:19 Hospital Course: Patient presented to the hospital from nursing facility. She was febrile with decreased responsiveness. Thought to be a UTI causing sepsis in the ER and admitted for hydration due to ALEXANDER and hyponatremia. She responded well to fluids and antibiotics. Had history of gallstones and acute cholecystitis a couple of months ago and there was concern that her recent readmissions have been related to that. Abdominal ultrasound was obtained that showed concern for gangrenous cholecystitis. After long discussion with family, it was decided that she was not a good surgical candidate and they would take her back to the facility on end-of-life comfort measures. Discharged back to the facility in improved, guarded condition with instructions to place on end-of-life care. Med ications were reviewed with halfway charge nurse.
== END 2025-07-06 13:45 ==
LOC: MED/SURG 23:10 → ER 23:10 → MED/SURG 07-04 02:15
PROVIDERS: ADMIT Obstetrics & Gynecology Obstetrics; ATTEND Family Medicine
DX: N39.0 Urinary tract infection, site not specified; A41.89 Other specified sepsis; Z16.19 Resistance to other specified beta lactam antibiotics; B96.4 Proteus (mirabilis) (morganii) as the cause of diseases classified elsewhere; J44.9 Chronic obstructive pulmonary disease, unspecified; B96.29 Other Escherichia coli [E. coli] as the cause of diseases classified elsewhere; E44.1 Mild protein-calorie malnutrition; Z66 Do not resuscitate; K21.9 Gastro-esophageal reflux disease without esophagitis; Z16.13 Resistance to carbapenem; I12.9 Hypertensive chronic kidney disease with stage 1 through stage 4 chronic kidney disease, or unspecified chronic kidney disease; R00.0 Tachycardia, unspecified; N18.9 Chronic kidney disease, unspecified; D64.89 Other specified anemias; E87.0 Hyperosmolality and hypernatremia; Z03.818 Encounter for observation for suspected exposure to other biological agents ruled out; R65.20 Severe sepsis without septic shock; K80.00 Calculus of gallbladder with acute cholecystitis without obstruction; D72.828 Other elevated white blood cell count; Z16.23 Resistance to quinolones and fluoroquinolones; R41.89 Other symptoms and signs involving cognitive functions and awareness; Z79.4 Long term (current) use of insulin; E11.65 Type 2 diabetes mellitus with hyperglycemia; Z68.27 Body mass index [BMI] 27.0-27.9, adult; R79.89 Other specified abnormal findings of blood chemistry; Z16.11 Resistance to penicillins; E87.5 Hyperkalemia; R50.9 Fever, unspecified; L89.899 Pressure ulcer of other site, unspecified stage; N17.0 Acute kidney failure with tubular necrosis; Z16.29 Resistance to other single specified antibiotic; Z16.12 Extended spectrum beta lactamase (ESBL) resistance; L89.153 Pressure ulcer of sacral region, stage 3; I69.991 Dysphagia following unspecified cerebrovascular disease; F03.C0 Unspecified dementia, severe, without behavioral disturbance, psychotic disturbance, mood disturbance, and anxiety